=== PATIENT | male | born 1945 | race Caucasian/White ===

== ENCOUNTER 2016-12-15 08:12 | Emergency (ER) | payer OTHER ==
[~2016-12-15] VITALS: Ht 170.2 cm; Wt 98.3 kg
[2016-12-15 08:17] VITALS: TEMP 36.6; Ht 170.2 cm; Wt 98.3 kg
[2016-12-15] MEDS ORDERED: RANITIDINE HCL 50 MG/100 ML D5W IV STA (09:05)
[2016-12-15] MEDS ORDERED: DEXAMETHASONE SOD INJ 10 MG/ML VIAL IV ONE (09:15)
[2016-12-15 09:16] LABS: BASO % 0.2 %; BASO ABS # 0.02 K/uL (0-0.2); COMPLETE YES; EOS % 1.3 %; HEMATOCRIT 46.5 % (42-52); IG% 0.6 %; LYMPH % 7.2 %; LYMPH ABS # 0.78 K/uL (1.2-3.4); MEAN CELL VOLUME 90.3 fL (80-100); MEAN CORPUSCULAR HEMOGLOBIN 33.6 pg (25-34); MEAN CORPUSCULAR HGB CONC 37.2 g/dl (32-36); MEAN PLATELET VOLUME 11.6 fL (7.4-10.4); NEUT % 84.7 %; PLATELET COUNT 187 K/uL (130-400); RED BLOOD COUNT 5.15 M/uL (4.7-6.1); WHITE BLOOD COUNT 10.85 K/uL (4.8-10.8)
[2016-12-15 09:36] LABS: BUN/CREATININE RATIO 17.6 (10-20); CALCIUM 9.1 mg/dl (8.5-10.1); CREATININE 1.1 mg/dl (0.60-1.40); POTASSIUM 4.1 mmol/L (3.5-5.1)
[2016-12-15] MEDS ORDERED: EPP3/2 IM (11:19)
[2016-12-15 11:26] VITALS: BP 144/97; PULSE 93; O2SAT 95
[2016-12-15] MEDS ORDERED: EMPTY 8 DRAM VIAL ONE (11:41)
--- NOTE | 2016-12-15 15:41 | EMERGENCY ROOM VISIT NOTE ---
History Report prepared by [place]: Maureen Betancourt Under the Supervision of: Dr. Rafa Elmore M.D. First contact with patient: 08:28 Chief Complaint: ALLERGIC REACTION Stated Complaint: SWELLING IN HANDS,LIP,HIVES History of Present Illness The patient is a 71 year old male who presents to the Emergency Room with complaints of a persistent allergic reaction that began yesterday. The patient states that yesterday he woke up with a swollen and itchy left hand. He states that he was evaluated at [facility] emergency department and was given 20 mg of Prednisone. The patient states that he took an additional dose of prednisone last evening. He states that he woke this morning to hives on his hips and lip swelling. The patient denies any history of allergies and denies any previous allergic reactions. The patient's states that she gave the patient 25 mg of Benadryl this morning. The patient denies any new lotions, clothing, detergents, soaps or recent bug bites. 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 The patient denies being on any daily medications. Pt denies LOC, headache, fevers, chills, diaphoresis, visual changes, neck pain, chest pain, breathing difficulties, nausea, vomiting, abdominal pain, back pain , melena, hematochezia, urinary symptoms, numbness, weakness, lymphadenopathy, or other complaints. Source of History: patient Onset: yesterday Position: other (global) Quality: other (allergic reaction) Timing: other (persistent) Note: Associated Symptoms left hand swelling and itchiness Review of Systems See HPI for pertinent positives and negatives. A total of ten systems were reviewed and were otherwise negative. Past Medical & Surgical Medical Problems: (1) Skin cancer Family History No pertinent family history stated. Social History Smoking Status: Former Smoker Marital Status: Housing Status: lives with significant other Occupation Status: retired Current/Historical Medications Scheduled PRN Epinephrine (Epipen), 0.3 MG IM UD PRN for ALLERGIC REACTION Allergies Coded Allergies: No Known Allergies (Unverified , 12/15/16) Physical Exam Vital Signs Date Time Temp Pulse Resp B/P (MAP) Pulse Ox O2 Delivery O2 Flow Rate FiO2 12/15/16 11:26 93 18 144/97 95 Room Air 12/15/16 09:30 72 18 137/90 12/15/16 09:08 80 12/15/16 08:17 36.6 90 20 170/99 95 Room Air Physical Exam GENERAL: Awake, alert, well-appearing, in no distress HENT: Normocephalic, atraumatic. Oropharynx unremarkable. EYES: Normal conjunctiva. Sclera non-icteric. NECK: Supple. No nuchal rigidity. FROM. No JVD. RESPIRATORY: Clear to auscultation. CARDIAC: Regular rate, normal rhythm. Extremities warm and well perfused. Pulses equal. ABDOMEN: Soft, non-distended. No tenderness to palpation. No rebound or guarding. No masses. RECTAL: Deferred. MUSCULOSKELETAL: Chest examination reveals no tenderness. The back is symmetrical on inspection without obvious abnormality. There is no CVA tenderness to palpation. No joint edema. LOWER EXTREMITIES: Calves are equal size bilaterally and non-tender. No edema. No discoloration. NEURO: Normal sensorium. No sensory or motor deficits noted. SKIN: Erythema and hives on the back of left hand, hives at the waistline. No jaundice noted. Medical Decision & Procedures Laboratory Results 12/15/16 08:50 Red Blood Count 5.15, Mean Corpuscular Volume 90.3, Mean Corpuscular Hemoglobin 33.6, Mean Corpuscular Hemoglobin Concent 37.2, Mean Platelet Volume 11.6, Neutrophils (%) (Auto) 84.7, Lymphocytes (%) (Auto) 7.2, Monocytes (%) (Auto) 6.0, Eosinophils (%) (Auto) 1.3, Basophils (%) (Auto) 0.2, Neutrophils # (Auto) 9.20, Lymphocytes # (Auto) 0.78, Monocytes # (Auto) 0.65, Eosinophils # (Auto) 0.14, Basophils # (Auto) 0.02 12/15/16 08:50 Test 12/15/16 08:50 White Blood Count 10.85 K/uL (4.8-10.8) Red Blood Count 5.15 M/uL (4.7-6.1) Hemoglobin 17.3 g/dL (14.0-18.0) Hematocrit 46.5 % (42-52) Mean Corpuscular Volume 90.3 fL (80-100) Mean Corpuscular Hemoglobin 33.6 pg (25-34) Mean Corpuscular Hemoglobin Concent 37.2 g/dl (32-36) Platelet Count 187 K/uL (130-400) Mean Platelet Volume 11.6 fL (7.4-10.4) Neutrophils (%) (Auto) 84.7 % Lymphocytes (%) (Auto) 7.2 % Monocytes (%) (Auto) 6.0 % Eosinophils (%) (Auto) 1.3 % Basophils (%) (Auto) 0.2 % Neutrophils # (Auto) 9.20 K/uL (1.4-6.5) Lymphocytes # (Auto) 0.78 K/uL (1.2-3.4) Monocytes # (Auto) 0.65 K/uL (0.11-0.59) Eosinophils # (Auto) 0.14 K/uL (0-0.5) Basophils # (Auto) 0.02 K/uL (0-0.2) RDW Standard Deviation 44.6 fL (36.4-46.3) RDW Coefficient of Variation 13.5 % (11.5-14.5) Immature Granulocyte % (Auto) 0.6 % Immature Granulocyte # (Auto) 0.06 K/uL (0.00-0.02) Anion Gap 4.0 mmol/L (3-11) Est Creatinine Clear Calc Drug Dose 66.8 ml/min Estimated GFR () 76.8 Estimated GFR (Non- 66.2 BUN/Creatinine Ratio 17.6 (10-20) Calcium Level 9.1 mg/dl (8.5-10.1) Laboratory results reviewed by me Medications Administered Medications (Trade) Dose Ordered Sig/Angela Route Start Time Stop Time Status Last Admin Dose Admin Dexamethasone Sodium Phosphate (Decadron Inj) 10 mg NOW ONCE IV 12/15/16 09:15 12/15/16 09:16 DC 12/15/16 09:24 10 MG Ranitidine HCl (zANTac IV) 50 mg NOW STAT IV 12/15/16 09:05 12/15/16 09:06 DC 12/15/16 09:24 50 MG Prednisone (PredniSONE TAB) 60 mg NOW STAT PO 12/15/16 11:36 12/15/16 11:37 DC 12/15/16 11:44 60 MG ED Course 0834: The patient was evaluated in room B4B. A complete history and physical exam was performed by the medical student. 0905: Ordered Zantac IV 50 mg IV. 0910: The patient was evaluated in room B4B. A complete history and physical exam was performed. 0915: Ordered Decadron Inj 10 mg IV. 1010: I reevaluated the patient and his swelling, rash and hives have been alleviated. 1136: Ordered Prednisone 60 mg PO. 1127: I reevaluated the patient and he is completely stable. I discussed the exam findings with him and I discussed the treatment plan. He verbalized complete understanding and agreement. He is ready to go home. Medical Decision Prior records/ancillary studies reviewed. Triage Nursing notes reviewed and agree them. Additional history obtained from the patient's . The patient's history was concerning for possible allergic reaction. Differential diagnosis: Etiologies such as allergic reaction, anaphylaxis, urticaria, Espino-Anibal syndrome, toxic epidermal necrolysis, erythema multiforme, cellulitis, as well as others were entertained. Physical examination: As above. ER treatment provided: Continuous cardiac monitoring Zantac 50 mg IV Decadron 10 mg IV On reassessment the patient felt better. Diagnostic interpretation by me: The labs revealed an unremarkable CBC and chemistry panel. Imaging studies: Deferred It appears the patient had an allergic reaction/urticaria. The exact etiology of his symptoms is not obvious at this time. The above treatment did well to reverse the symptoms. After prolonged monitoring and frequent reassessments the patient did very well and symptoms resolved. By the evaluation outlined above emergent etiologies such as airway compromise, Espino-Anibal syndrome, toxic epidermal necrolysis, erythema multiforme, cellulitis, as well as others were deemed relatively unlikely. The patient and were informed about the findings as listed above. All questions were answered and they were pleased with the treatment. Return instructions were outlined and the patient was discharged in stable condition. Outpatient prescription management: EpiPen prednisone Referral: The patient was referred back to his primary care physician as well as allergy for a recheck of the current condition. Medication Reconcilliation Current Medication List: was personally reviewed by me Blood Pressure Screening Patient's blood pressure: Elevated blood pressure Blood pressure disposition: Referred to PCP Impression Primary Impression: Urticaria Scribe Attestation The scribe's documentation has been prepared under my direction and personally reviewed by me in its entirety. I confirm that the note above accurately reflects all work, treatment, procedures, and medical decision making performed by me. Departure Information Dispostion Home / Self-Care Prescriptions Epinephrine (EPIPEN) 0.3 Mg/0.3 Ml Inj 0.3 MG IM UD Y for ALLERGIC REACTION, #1 EA 1 Refill Prov: Rafa Elmore MD 12/15/16 Referrals No Doctor, Assigned (PCP) Forms HOME CARE DOCUMENTATION FORM, IMPORTANT VISIT INFORMATION Patient Instructions My [facility] Additional Instructions ALLERGIC REACTION INSTRUCTIONS: DO NOT drive, drink alcohol, operate machinery, or perform dangerous activities today. You were given medications in the ER that can affect your ability to safely function or operate a vehicle. Epi-Pen: Use one injection as instructed for severe allergic reactions associated with shortness of breath, difficulty breathing, or throat or tongue swelling. If you use this injection call 911 or proceed immediately to the nearest Emergency Room. Prednisone: 60 mg tomorrow and then 40 mg daily on Thursday and . It is best to take this earlier in the day as some patients note occasional difficulty falling asleep when taken in the late evening. Diphenhydramine(Benadryl) 25mg: use 25 to 50 mg every six hours for swelling, itching, or hives. This medication is sedating and will cause drowsiness. Avoid alcohol, operating machinery or dangerous equipment, working on ladders or roofs, DRIVING, or situations where being under the influence may be dangerous. Zantac 75: Take two pills twice a day along with Benadryl as needed for swelling , itching, or hives. Most people know this for its affect on the stomach, but it also acts similar to, but less potent than Benadryl for allergic reactions. Both the Benadryl and the Zantac are available [id number]. Continue current medications. Return to the emergency department for worsening of your rash, swelling of your face, lips, tongue, or throat, difficulty breathing, vomiting, or as needed. Follow-up with your primary care physician in 2 to 3 days for a recheck of your current condition. Call [facility] internal medicine tomorrow for a follow-up with allergy at [phone].
== END 2016-12-15 11:47 | disposition home or self-care (01) ==
LOC: C.EDB 08:14
DX: L50.0 Allergic urticaria (principal); Z85.828 Personal history of other malignant neoplasm of skin; Z87.891 Personal history of nicotine dependence

== ENCOUNTER 2017-04-20 08:22 | Emergency (ER) | payer OTHER ==
[~2017-04-20] VITALS: Ht 170.2 cm; Wt 100.5 kg
[~2017-04-20 08:22] MED LIST: EPP3/2 IM
[2017-04-20 08:26] VITALS: TEMP 36.7; Ht 170.2 cm; Wt 100.5 kg
[2017-04-20 08:44] VITALS: O2SAT 95
[2017-04-20] MEDS ORDERED: SODIUM CHLORIDE 0.9% 1000ML 1,000 ML IV STA (08:56)
[2017-04-20] MEDS ORDERED: MECLIZINE HCL 25 MG TAB PO STA (08:56)
[2017-04-20 09:07] LABS: BASO % 0.5 %; BASO ABS # 0.03 K/uL (0-0.2); EOS % 8.2 %; EOS ABS # 0.46 K/uL (0-0.5); HEMATOCRIT 47.2 % (42-52); HEMOGLOBIN 17.3 g/dL (14.0-18.0); IG# 0.01 K/uL (0.00-0.02); LYMPH ABS # 1.63 K/uL (1.2-3.4); MEAN CELL VOLUME 90.8 fL (80-100); MEAN CORPUSCULAR HEMOGLOBIN 33.3 pg (25-34); MEAN CORPUSCULAR HGB CONC 36.7 g/dl (32-36); MEAN PLATELET VOLUME 11.8 fL (7.4-10.4); MONO % 9.8 %; MONO ABS # 0.55 K/uL (0.11-0.59); NEUT % 52.3 %; NEUT ABS # 2.95 K/uL (1.4-6.5); PLATELET COUNT 166 K/uL (130-400); RED CELL DISTRIBUTION WIDTH CV 13.3 % (11.5-14.5); RED CELL DISTRIBUTION WIDTH SD 43.9 fL (36.4-46.3); WHITE BLOOD COUNT 5.63 K/uL (4.8-10.8)
[2017-04-20 09:12] LABS: PTT PATIENT 25.4 SECONDS (21.0-31.0)
--- NOTE | 2017-04-20 09:13 | DIAGNOSTIC IMAGING REPORT ---
CHEST ONE VIEW PORTABLE CLINICAL HISTORY: EVALUATE ALTERED MENTAL STATUS/WEAKNESS COMPARISON STUDY: No previous studies for comparison. FINDINGS: Lung volumes are mildly diminished. No pneumothorax or pleural effusion is noted. No consolidation is identified. There is no evidence for pulmonary edema. There is borderline cardiomegaly. IMPRESSION: Diminished lung volumes. No acute cardiopulmonary findings identified. Electronically signed by: Gonzales Bearden M.D. 04/20/2017 9:12 AM Dictated Date/Time: 04/20/2017 9:11 AM
[2017-04-20 09:22] LABS: ALBUMIN 3.9 gm/dl (3.4-5.0); ALT/SGPT 24 U/L (12-78); BLOOD UREA NITROGEN 21 mg/dl (7-18); CALCIUM 9.4 mg/dl (8.5-10.1); CARBON DIOXIDE 26 mmol/L (21-32); CREATININE 1.08 mg/dl (0.60-1.40); GLUCOSE 87 mg/dl (70-99); LIPASE 128 U/L (73-393); POTASSIUM 4.2 mmol/L (3.5-5.1); SODIUM 140 mmol/L (136-145)
[2017-04-20 09:30] LABS: ALKALINE PHOSPHATASE 53 U/L (45-117); AST/SGOT 13 U/L (15-37); CKMB 0.6 ng/ml (0.5-3.6); TOTAL PROTEIN 7.5 gm/dl (6.4-8.2)
--- NOTE | 2017-04-20 10:15 | DIAGNOSTIC IMAGING REPORT ---
CT OF THE HEAD WITHOUT CONTRAST CLINICAL HISTORY: EVALUATE ALTERED MENTAL STATUS/WEAKNESS. COMPARISON STUDY: No previous studies for comparison. CT DOSE: 614.27 mGy.cm TECHNIQUE: Helical axial images of the head were obtained without IV contrast. Automated exposure control was utilized for the study. A dose lowering technique was utilized adhering to the principles of ALARA. FINDINGS: No acute intracranial hemorrhage, midline shift or mass effect is present. Ventricular system is normal. Basilar cisterns are patent. There are no extra axial collections. White matter hypodensity suggests small vessel disease. There are no findings to suggest acute dural sinus thrombosis or acute territorial infarct. There are no significant calvarial abnormalities. Visualized portions of the sinuses and mastoid air cells are clear. IMPRESSION: No acute intracranial findings. Electronically signed by: Gonzales Bearden M.D. 04/20/2017 10:13 AM Dictated Date/Time: 04/20/2017 10:11 AM
[2017-04-20] MEDS ORDERED: MECL1TAB42 PO (10:41)
[2017-04-20 10:50] VITALS: BP 155/95; PULSE 69; O2SAT 94
--- NOTE | 2017-04-20 14:34 | EMERGENCY ROOM VISIT NOTE ---
History First contact with patient: 08:49 Chief Complaint: DIZZY Stated Complaint: DIZZY, LIGHT HEADED, SHAKEY Nursing Triage Summary: pt reports intermittent chest pain with sob has awoken him from sleep several night per spouse. describes chest pain as heaviness. does not require exertion for sob or chest pain. took 2 reg strength asa today. c/o dizziness worse when going from sitting to lying or lying to sitting History of Present Illness The patient is a 71 year old male who presents to the Emergency Room with complaints of mainly dizziness. She states that the main reason for coming in today was dizziness. She states that she is now feeling better. She states that her symptoms started Thursday. They were worse with laying down. The patient did report and nurse's of having some intermittent chest heaviness and shortness of breath at night when sleeping. She did not report the symptoms to me, however. She is currently asymptomatic. She denies any recent illness, fevers, headaches or focal neurologic deficits. Review of Systems As above otherwise negative for 10 systems Past Medical/Surgical History Medical Problems: (1) Skin cancer Social History Smoking Status: Former Smoker Marital Status: Housing Status: lives with significant other Occupation Status: retired Current/Historical Medications Scheduled PRN Meclizine Hcl (Meclizine Hcl), 1 TAB PO TID PRN for Dizziness or Vertigo Physical Exam Vital Signs Date Time Temp Pulse Resp B/P (MAP) Pulse Ox O2 Delivery O2 Flow Rate FiO2 04/20/17 10:50 69 16 155/95 94 04/20/17 09:57 64 18 150/94 96 Room Air 04/20/17 08:45 77 04/20/17 08:44 95 Room Air 04/20/17 08:44 77 154/97 83 163/106 85 172/111 04/20/17 08:26 36.7 80 20 168/103 93 Room Air Physical Exam VITAL SIGNS: were reviewed as above. GENERAL:Non-toxic in appearance. SKIN: Warm dry and pink. HEAD: Normocephalic and atraumatic. OROPHARYNX: Is clear and moist NECK: Supple without lymphadenopathy or meningismus. LUNGS: Are clear. HEART: Regular rate and rhythm. ABDOMEN: Soft and nontender. EXTREMITIES: Warm and well perfused. NEUROLOGICALLY: Awake alert and oriented without focal deficit. Cranial nerves 2-12 are intact. There is no pronator drift. Cerebellar testing is within normal limits. There is no nystagmus. There is no facial droop. Speech is clear. Vision is grossly normal. MUSCULOSKELETAL: Good muscle tone. No evidence of trauma. Strength is symmetric. ALL NURSING NOTES WERE REVIEWED. Medical Decision & Procedures ER Provider Diagnostic Interpretation: CHEST ONE VIEW PORTABLE CLINICAL HISTORY: EVALUATE ALTERED MENTAL STATUS/WEAKNESS COMPARISON STUDY: No previous studies for comparison. FINDINGS: Lung volumes are mildly diminished. No pneumothorax or pleural effusion is noted. No consolidation is identified. There is no evidence for pulmonary edema. There is borderline cardiomegaly. IMPRESSION: Diminished lung volumes. No acute cardiopulmonary findings identified. CT OF THE HEAD WITHOUT CONTRAST CLINICAL HISTORY: EVALUATE ALTERED MENTAL STATUS/WEAKNESS. COMPARISON STUDY: No previous studies for comparison. CT DOSE: 614.27 mGy.cm TECHNIQUE: Helical axial images of the head were obtained without IV contrast. Automated exposure control was utilized for the study. A dose lowering technique was utilized adhering to the principles of ALARA. FINDINGS: No acute intracranial hemorrhage, midline shift or mass effect is present. Ventricular system is normal. Basilar cisterns are patent. There are no extra axial collections. White matter hypodensity suggests small vessel disease. There are no findings to suggest acute dural sinus thrombosis or acute territorial infarct. There are no significant calvarial abnormalities. Visualized portions of the sinuses and mastoid air cells are clear. IMPRESSION: No acute intracranial findings. CT OF THE HEAD WITHOUT CONTRAST CLINICAL HISTORY: EVALUATE ALTERED MENTAL STATUS/WEAKNESS. COMPARISON STUDY: No previous studies for comparison. CT DOSE: 614.27 mGy.cm TECHNIQUE: Helical axial images of the head were obtained without IV contrast. Automated exposure control was utilized for the study. A dose lowering technique was utilized adhering to the principles of ALARA. FINDINGS: No acute intracranial hemorrhage, midline shift or mass effect is present. Ventricular system is normal. Basilar cisterns are patent. There are no extra axial collections. White matter hypodensity suggests small vessel disease. There are no findings to suggest acute dural sinus thrombosis or acute territorial infarct. There are no significant calvarial abnormalities. Visualized portions of the sinuses and mastoid air cells are clear. IMPRESSION: No acute intracranial findings. Laboratory Results 04/20/17 08:40 Red Blood Count 5.20, Mean Corpuscular Volume 90.8, Mean Corpuscular Hemoglobin 33.3, Mean Corpuscular Hemoglobin Concent 36.7, Mean Platelet Volume 11.8, Neutrophils (%) (Auto) 52.3, Lymphocytes (%) (Auto) 29.0, Monocytes (%) (Auto) 9.8, Eosinophils (%) (Auto) 8.2, Basophils (%) (Auto) 0.5, Neutrophils # (Auto) 2.95, Lymphocytes # (Auto) 1.63, Monocytes # (Auto) 0.55, Eosinophils # (Auto) 0.46, Basophils # (Auto) 0.03 04/20/17 08:40 Test 04/20/17 08:40 04/20/17 08:45 04/20/17 09:50 White Blood Count 5.63 K/uL (4.8-10.8) Red Blood Count 5.20 M/uL (4.7-6.1) Hemoglobin 17.3 g/dL (14.0-18.0) Hematocrit 47.2 % (42-52) Mean Corpuscular Volume 90.8 fL (80-100) Mean Corpuscular Hemoglobin 33.3 pg (25-34) Mean Corpuscular Hemoglobin Concent 36.7 g/dl (32-36) Platelet Count 166 K/uL (130-400) Mean Platelet Volume 11.8 fL (7.4-10.4) Neutrophils (%) (Auto) 52.3 % Lymphocytes (%) (Auto) 29.0 % Monocytes (%) (Auto) 9.8 % Eosinophils (%) (Auto) 8.2 % Basophils (%) (Auto) 0.5 % Neutrophils # (Auto) 2.95 K/uL (1.4-6.5) Lymphocytes # (Auto) 1.63 K/uL (1.2-3.4) Monocytes # (Auto) 0.55 K/uL (0.11-0.59) Eosinophils # (Auto) 0.46 K/uL (0-0.5) Basophils # (Auto) 0.03 K/uL (0-0.2) RDW Standard Deviation 43.9 fL (36.4-46.3) RDW Coefficient of Variation 13.3 % (11.5-14.5) Immature Granulocyte % (Auto) 0.2 % Immature Granulocyte # (Auto) 0.01 K/uL (0.00-0.02) Prothrombin Time 10.0 SECONDS (9.0-12.0) Prothromb Time International Ratio 1.0 (0.9-1.1) Activated Partial Thromboplast Time 25.4 SECONDS (21.0-31.0) Partial Thromboplastin Ratio 1.0 Anion Gap 7.0 mmol/L (3-11) Est Creatinine Clear Calc Drug Dose 68.8 ml/min Estimated GFR () 78.5 Estimated GFR (Non- 67.7 BUN/Creatinine Ratio 19.3 (10-20) Calcium Level 9.4 mg/dl (8.5-10.1) Magnesium Level 2.3 mg/dl (1.8-2.4) Total Bilirubin 0.4 mg/dl (0.2-1) Direct Bilirubin 0.1 mg/dl (0-0.2) Aspartate Amino Transf (AST/SGOT) 13 U/L (15-37) Alanine Aminotransferase (ALT/SGPT) 24 U/L (12-78) Alkaline Phosphatase 53 U/L (45-117) Total Creatine Kinase 39 U/L (39-308) Creatine Kinase MB 0.6 ng/ml (0.5-3.6) Creatine Kinase MB Ratio 1.5 (0-3.0) Troponin I < 0.015 ng/ml (0-0.045) Total Protein 7.5 gm/dl (6.4-8.2) Albumin 3.9 gm/dl (3.4-5.0) Lipase 128 U/L (73-393) Thyroid Stimulating Hormone (TSH) 2.490 uIu/ml (0.300-4.500) Bedside D-Dimer 276 ng/mlFEU (0-450) Bedside Troponin I < 0.030 ng/ml (0-0.045) Urine Color YELLOW Urine Appearance CLEAR (CLEAR) Urine pH 7.0 (4.5-7.5) Urine Specific [place] 1.019 (1.000-1.030) Urine Protein NEG (NEG) Urine Glucose (UA) NEG (NEG) Urine Ketones NEG (NEG) Urine Occult Blood NEG (NEG) Urine Nitrite NEG (NEG) Urine Bilirubin NEG (NEG) Urine Urobilinogen NEG (NEG) Urine Leukocyte Esterase NEG (NEG) Urine WBC (Auto) 0 /hpf (0-5) Urine RBC (Auto) 0-4 /hpf (0-4) Urine Hyaline Casts (Auto) 0 /lpf (0-5) Urine Epithelial Cells (Auto) 0-5 /lpf (0-5) Urine Bacteria (Auto) NEG (NEG) Medications Administered Medications (Trade) Dose Ordered Sig/Angela Route Start Time Stop Time Status Last Admin Dose Admin Sodium Chloride 1,000 ml @ 999 mls/hr Q1H1M STAT IV 04/20/17 08:56 04/20/17 09:56 DC 04/20/17 09:19 999 MLS/HR Meclizine HCl (Antivert Tab) 25 mg NOW STAT PO 04/20/17 08:56 04/20/17 08:58 DC 04/20/17 09:19 25 MG ED Course The patient was treated with IV fluids and by mouth meclizine. Medical Decision Differential includes acute coronary syndrome, myocardial infarction, CVA, TIA, anemia, infection, pneumonia, UTI, pyelonephritis, poor nutrition, dehydration, electrolyte disturbance,hypoglycemia. This is a 71-year-old male who presents with the above. Primary complaint of that of dizziness. It seems to be worse with lying down as well as standing. Once the patient is upright and walking or lying down for a little while symptoms resolve. It seems to be related to movement. His initial blood pressure was a little elevated. His neuro exam was normal. CT scan of the brain and a chest x-ray were negative for acute disease. D-dimer and troponin were negative. CBC and complete metabolic panel were normal. Troponin was negative, urine did not show infection. The patient was treated with IV fluids and by mouth meclizine. He was feeling better. He was discharged. Impression Primary Impression: Dizziness Departure Information Dispostion Home / Self-Care Condition GOOD Prescriptions Meclizine Hcl (MECLIZINE HCL) 25 Mg Tab 1 TAB PO TID Y for Dizziness or Vertigo for 10 Days, #30 TAB Prov: Kit Herrera D.O. 04/20/17 Referrals Jaden Beebe M.D. (PCP) Forms HOME CARE DOCUMENTATION FORM, IMPORTANT VISIT INFORMATION Patient Instructions My [facility] Additional Instructions Meclizine as prescribed. Have your blood pressure rechecked by your doctor. Follow-up with your doctor for further care and evaluation in 1-2 days. Return to the emergency department for worsening or new symptoms or any concerns. You have been examined and treated today on an emergency basis only. This is not a substitute for, or an effort to provide, complete comprehensive medical care. It is impossible to recognize and treat all injuries or illnesses in a single emergency department visit. It is therefore important that you follow up closely with your doctor. Call as soon as possible for an appointment.
== END 2017-04-20 10:51 | disposition home or self-care (01) ==
LOC: C.EDB 08:23 → C.EDA 10:51
DX: R42 Dizziness and giddiness (principal); Z85.828 Personal history of other malignant neoplasm of skin; Z87.891 Personal history of nicotine dependence

== ENCOUNTER 2019-09-04 11:17 | Inpatient (IN) ==
[2019-09-04] MEDS ORDERED: cefOXitin 2,000 MG/60 ML BAG IV STA (11:33)
[2019-09-04] MEDS ORDERED: SODIUM CHLORIDE 0.9% 500 ML IV SCH (11:45)
[2019-09-04 11:46] LABS: Basophils # (auto) 0.02 K/uL (0-0.2); Basophils % (auto) 0.3 %; Eosinophils # (auto) 0.22 K/uL (0-0.5); Eosinophils % (auto) 3.3 %; Hematocrit (blood only) 37.8 % (42-52); Hemoglobin 12.6 g/dL (14.0-18.0); Immature Granulocytes # (auto) 0.02 K/uL (0.00-0.02); Immature Granulocytes % (auto) 0.3 %; Lymphocytes # (auto) 1.34 K/uL (1.2-3.4); Lymphocytes % (auto) 19.9 %; Mean Corpuscular Hemoglobin 27.4 pg (25-34); Mean Corpuscular Hgb Conc 33.3 g/dL (32-36); Mean Corpuscular Volume 82.2 fL (80-100); Mean Platelet Volume 11.7 fL (7.4-10.4); Monocytes # (auto) 0.65 K/uL (0.11-0.59); Monocytes % (auto) 9.6 %; Neutrophils % (auto) 66.6 %; Platelet Count 267 K/uL (130-400); RDW Coefficient of Variation 15.4 % (11.5-14.5); RDW Standard Deviation 46.4 fL (36.4-46.3); White Blood Count 6.75 K/uL (4.8-10.8)
[2019-09-04 12:02] LABS: Albumin Level 3.6 gm/dl (3.4-5.0); BUN Creatinine Ratio 16.3 (10-20); Calcium 8.8 mg/dl (8.5-10.1); Creatinine Clr Calc Pharmacy 68.1 ml/min; Est GFR (Non-African American) 70.7; Potassium 3.4 mmol/L (3.5-5.1)
[2019-09-04 12:04] LABS: Albumin Globulin Ratio 0.9 (0.9-2); Bilirubin,Total 0.2 mg/dl (0.2-1); Globulin 4.1 gm/dl (2.5-4.0); Total Protein 7.7 gm/dl (6.4-8.2)
--- NOTE | 2019-09-04 12:48 | Emergency Department Note ---
Impression & Plan Abdominal pain, lower ED Provider Note NAME: FRANK ESCOBAR AGE: 73 SEX: M ARRIVES VIA: Walk-In INFORMANT: [Patient] ED PROVIDER(S): Rafa Elmore MD CHIEF COMPLAINT: Lower abdominal pain PLAN: Disposition: Admitted Condition: [Good] MEDICAL DECISION MAKING: Patient presented with abdominal pain outpatient CT imaging raise concerns for multiple issues but also appendicitis. The patient was given a dose of IV Mefoxin, had blood work obtained, and I did discuss his imaging with radiology. It was felt that repeat CT imaging would be most appropriate to further evaluate the multiple issues going on. This was performed with IV and oral contrast. The patient has a possible lesion in the hepatic flexure causing stricture. This could be a colitis versus a tumor. I did discuss this with the patient. GI evaluation will be necessary. I did discuss this with GI. A bowel prep was recommended. N.p.o. after midnight was recommended. The patient will have a colonoscopy tomorrow to further evaluate the issue. The patient also has an abnormal appearance to his appendix although it appears to be reactive change as opposed to primary appendicitis. I did discuss this with general surgery and they will consult. Further management will be necessary in the hospital. I discussed this with the [facility] internal medicine hospitalist. The patient was evaluated in the ER and admitted. Triage Nursing notes reviewed and agree them. [Prior medical records reviewed] outpatient CT scan raised concerns about a right inguinal hernia with the appendix in the hernia and signs of appendicitis. There was also an abdominal aortic aneurysm present. Vital Signs: reviewed and remarkable for hypertension Differential diagnosis: Appendicitis, testicular torsion, infections, diverticulitis, UTI, obstruction, mesenteric ischemia, aortic pathology, inflammatory bowel disease, renal colic, PUD, pancreatitis, biliary pathology, hernia, volvulus, constipation, as well as other pathologies. ER treatment provided: Normal saline hydration IV Mefoxin Diagnostics interpreted by me: ECG: Rate: 87 Rhythm:Normal sinus Surprise: Left axis deviation QRS: Right bundle branch block ST segements:No elevation or depression. Inferior T wave inversions. When compared to Other:No PACs or PVCs Cardiac Monitoring: [none] Laboratory studies: [See below] unremarkable CBC and chemistry panel. LFTs lipase negative. The patient's urinalysis was unremarkable. Imaging studies: CT imaging of the abdomen and pelvis with IV and oral contrast were performed. 1. Apparent high-grade luminal narrowing of the hepatic flexure is noted with soft tissue thickening suspicious for a mucosal neoplasm measuring up to 2.8 x 1.8 cm. Correlation with GI consultation and endoscopy is recommended. This results in dilation with moderate fecal retention of the terminal ileum, cecum and ascending colon. Enteric contrast progresses to the ileocecal valve excluding small bowel obstruction. 2. Wall thickening throughout the cecum and ascending colon with pericolonic stranding and trace free fluid of the pericolic gutter is likely reactive. A nonspecific colitis could appear similarly. 3. Dilated fluid-filled appendix is also likely secondary to the aforementioned colonic findings. Acute appendicitis is considered less likely. 4. Colonic diverticulosis without acute diverticulitis. 5. Fusiform aneurysmal dilation of the distal infrarenal abdominal aorta, 5.5 x 4.4 cm. Consultation(s): GI, Dr. peguero General surgery, Az Gee PA-C Hospitalist, Dr. Hancock HPI: The patient is a 68 year old male who presents to the Emergency Room with complaints of lower abdominal pain. This started last week and is persistent. The patient also notes the following associated symptoms, diarrhea. The patient has found no relieving factors. Current pain is rated as 6/10. Patient declined analgesia. He had an outpatient CT scan performed on the at [facility]. This revealed a right inguinal hernia with his appendix in the hernia and findings concerning for appendicitis. The patient also had a AAA. Patient was referred to see a vascular surgeon. He was supposed to see them however the appointment was postponed till September. Given the pain and the findings the brought the patient here for further evaluation. Pt denies LOC, headache, fevers, chills, diaphoresis, visual changes, neck pain, chest pain, breathing difficulties, nausea, vomiting, back pain, melena, hematochezia, urinary symptoms, numbness, weakness, lymphadenopathy, rash, or other complaints. ROS: See above HPI for pertinent positives & negatives. A total of [10] systems reviewed and were otherwise negative. PAST MEDICAL HISTORY:[See Below] skin cancer PAST SURGICAL HISTORY:[See Below] FAMILY HISTORY:[See Below] SOCIAL HISTORY:[See Below] HOME MEDICATIONS:[See Below] ALLERGIES:[See Below] VITALS:[See Below] PHYSICAL EXAMINATION: GENERAL: Awake, alert, well-appearing, in no distress HENT: Normocephalic, atraumatic. Oropharynx unremarkable. EYES: Normal conjunctiva. Sclera non-icteric. NECK: Inspection normal. Non-tender. Supple. No nuchal rigidity. FROM. No masses. RESPIRATORY: Clear to auscultation. No wheezes. No rales. Normal respiratory effort. CARDIAC: Normal rate. Normal rhythm. No murmurs. No rubs. Extremities warm and well perfused. Pulses equal. No JVD. GI: Soft, non-distended. Lower abdominal tenderness to palpation. No rebound or guarding. No masses. RECTAL: Deferred. MUSCULOSKELETAL: Atraumatic. Chest examination reveals no tenderness. The back is symmetrical on inspection without obvious abnormality. There is no CVA tenderness to palpation. No joint edema. LOWER EXTREMITIES: Calves are equal size bilaterally and non-tender. No edema. No discoloration. NEURO: Normal sensorium. No sensory or motor deficits noted. SKIN: No rash or jaundice noted. ED COURSE: [Critical Care:] [None] Rafa Elmore MD Past Med/Surg History Medical History (Updated 09/04/19 @ 17:43 by Lisbeth Mathis RN) Ascending aortic aneurysm Skin cancer Social History Preferred Language: Japanese Communication Ability: Effective Filter Washer Required: No Beliefs That Will Affect Care: None Current Living Situation: Spouse Other Information That Helps Us Care for You: No Feels Safe at Home: Yes Safety Concerns: Feels Safe At This Time Smoking Status: Former smoker Hx Alcohol Use: No Hx Substance Use: No Allergies Allergies Allergy/AdvReac Type Severity Reaction Status Date / Time No Known Allergies Allergy Unverified 04/20/17 08:45 Home Meds Home Medications Medication Instructions Recorded Confirmed multivitamin 1 tab PO QAM 09/04/19 09/04/19 pantoprazole 40 mg PO QAM 09/04/19 09/04/19 Results & Data (ED) Vital Signs Vital Signs - 24 hr 09/04/19 11:20 09/04/19 11:54 09/04/19 13:00 Temperature 36.6 C Temperature Source Oral Pulse Rate 94 H Pulse Rate [Right Finger] 73 Pulse Rhythm [Right Finger] Regular Pulse Strength [Right Finger] Normal Respiratory Rate 16 20 Respiratory Effort / Characteristics Non-Labored Spontaneous Respiratory Depth Normal Respiratory Pattern Blood Pressure 164/100 H Blood Pressure [Right Arm] 162/102 H Blood Pressure Mean 121 Blood Pressure Mean [Right Arm] 122 Pulse Oximetry 98 98 Oxygen Delivery Method Room Air Room Air Room Air Sepsis Recent Fever Within 48 Hours No Sepsis New/Unexplained Change in Mental Status No Sepsis Action Taken by Nursing No Action Required 09/04/19 15:22 Temperature Temperature Source Pulse Rate Pulse Rate [Right Finger] 79 Pulse Rhythm [Right Finger] Regular Pulse Strength [Right Finger] Normal Respiratory Rate 18 Respiratory Effort / Characteristics Non-Labored Spontaneous Respiratory Depth Normal Respiratory Pattern Regular Blood Pressure Blood Pressure [Right Arm] 170/98 H Blood Pressure Mean Blood Pressure Mean [Right Arm] 122 Pulse Oximetry 98 Oxygen Delivery Method Room Air Sepsis Recent Fever Within 48 Hours Sepsis New/Unexplained Change in Mental Status Sepsis Action Taken by Nursing Laboratory Data Result diagrams: 09/04/19 11:39 09/04/19 11:39 Lab Results 09/04/19 09/04/19 09/04/19 Range/Units 11:39 11:39 13:12 WBC 6.75 (4.8-10.8) K/uL RBC 4.60 L (4.7-6.1) M/uL Hgb 12.6 L (14.0-18.0) g/dL Hct 37.8 L (42-52) % MCV 82.2 (80-100) fL MCH 27.4 (25-34) pg MCHC 33.3 (32-36) g/dL RDW Std Deviation 46.4 H (36.4-46.3) fL RDW Coeff of Kang 15.4 H (11.5-14.5) % Plt Count 267 (130-400) K/uL MPV 11.7 H (7.4-10.4) fL Immature Gran % (Auto) 0.3 % Neut % (Auto) 66.6 % Lymph % (Auto) 19.9 % [place] % (Auto) 9.6 % Eos % (Auto) 3.3 % Baso % (Auto) 0.3 % Immature Gran # (Auto) 0.02 (0.00-0.02) K/uL Neut # (Auto) 4.50 (1.4-6.5) K/uL Lymph # (Auto) 1.34 (1.2-3.4) K/uL [place] # (Auto) 0.65 H (0.11-0.59) K/uL Eos # (Auto) 0.22 (0-0.5) K/uL Baso # (Auto) 0.02 (0-0.2) K/uL Sodium 141 (136-145) mmol/L Potassium 3.4 L (3.5-5.1) mmol/L Chloride 110 H (98-107) mmol/L Carbon Dioxide 26 (21-32) mmol/L Anion Gap 5.0 (3-11) BUN 17 (7-18) mg/dl Creatinine 1.03 (0.6-1.4) mg/dl Est Cr Clr Drug Dosing 68.1 ml/min Est GFR ( Amer) 82.0 Est GFR (Non-Af Amer) 70.7 BUN/Creatinine Ratio 16.3 (10-20) Glucose 111 H (70-99) mg/dl Calcium 8.8 (8.5-10.1) mg/dl Total Bilirubin 0.2 (0.2-1) mg/dl AST 14 L (15-37) U/L ALT 23 (12-78) U/L Alkaline Phosphatase 70 (45-117) U/L Total Protein 7.7 (6.4-8.2) gm/dl Albumin 3.6 (3.4-5.0) gm/dl Globulin 4.1 H (2.5-4.0) gm/dl Albumin/Globulin Ratio 0.9 (0.9-2) Lipase 134 (73-393) U/L Urine Color Yellow Urine Appearance Clear (Clear) Urine pH 5.5 (4.5-7.5) Ur Specific [place] 1.018 (1.000-1.030) Urine Protein Negative (Negative) Urine Glucose (UA) Negative (Negative) Urine Ketones Negative (Negative) Urine Blood Negative (Negative) Urine Nitrite Negative (Negative) Urine Bilirubin Negative (Negative) Urine Urobilinogen Negative (Negative) Ur Leukocyte Esterase Negative (Negative) Administered Medications Ioversol (Optiray 320 100ml) 94 ml IV ONCE PRN PRN Reason: Interaction Checking Stop: 09/08/19 14:50 Last Admin: 09/04/19 14:51 Dose: 94 ml Documented by: [id number] Discontinued Medications Sodium Chloride (Nss) 500 mls @ 999 mls/hr IV .Q31M ANA Stop: 09/04/19 12:15 Last Infusion: 09/04/19 12:24 Dose: 0 mls/hr Documented by: [id number] Admin: 09/04/19 11:54 Dose: 999 mls/hr Documented by: [id number] Cefoxitin Sodium (Mefoxin) 2,000 mg in 60 mls @ 100 mls/hr IV NOW STA Stop: 09/04/19 12:08 Last Infusion: 09/04/19 12:24 Dose: 0 mls/hr Documented by: [id number] Admin: 09/04/19 11:54 Dose: 100 mls/hr Documented by: [id number] Discharge Plan Visit Data *Final* Discharge Date/Time: 09/04/19 16:56 Chief Complaint: Abnormal Labs/Diagnostic Testing Stated Complaint: RESULTS FROM CT SCAN,ABNORMAL CT SCAN ED Provider: Rafa Elmore Discharge Problem: Abdominal pain, lower Patient Disposition: Admitted As Inpatient Discharge Instructions Interventions: ED Discharge Assessment Last Done: 09/04/19 16:56
[2019-09-04 13:31] LABS: Appearance Urine Clear (Clear); Bilirubin Urine Negative (Negative); Blood Urine Negative (Negative); Color Urine Yellow; Glucose Urine UA Negative (Negative); Ketones Urine Negative (Negative); Leukocyte Esterase Urine Negative (Negative); Nitrite Urine Negative (Negative); Protein Urine Negative (Negative); Specific Gravity Urine 1.018 (1.000-1.030); Urobilinogen Urine Negative (Negative); pH Urine 5.5 (4.5-7.5)
[2019-09-04] MEDS ORDERED: IOVERSOL 100ml IV PRN (14:51)
--- NOTE | 2019-09-04 15:48 | CT Scan Report ---
ABDOMEN AND PELVIS CT WITH IV AND ORAL CONTRAST CT DOSE: 892.90 mGy.cm HISTORY: Acute lower abdominal pain. Follow-up study in a patient with possible acute appendicitis. lower abd pain, AAA and appy on outpt ct TECHNIQUE: Multiaxial CT images of the abdomen and pelvis were performed following the IV administrat ion of 94 cc of Optiray 320 and oral contrast. A dose lowering technique was utilized adhering to e principles of ALARA. COMPARISON STUDY: CT abdomen and pelvis 08/31/2019 FINDINGS: Coronary artery calcifications. Emphysema. Mild bibasilar atelectasis. There is no pneumatosis or pne umoperitoneum. The spleen, pancreas and adrenal glands are unremarkable. Mildly distended gallbladder . Unremarkable appearance of the liver. 6 no renal hypodensity of the left hepatic lobe is too small to characterize however suggestive of a probable cyst, image 17 of series 2. There is no biliary duct al dilation. 5.6 x 6.7 cm cyst of the inferior pole right kidney. There are a few renal sinus cysts noted involvin g the bilateral kidneys. Prostamegaly. Unremarkable urinary bladder. Moderate to extensive mixed plaq ue of the abdominal aorta. Fusiform aneurysmal dilation of the distal infrarenal abdominal aorta rede monstrated without evidence of rupture which measures 5.5 x 4.4 cm for a craniocaudal length of 6.9 c m. Unremarkable appearance of the IVC. No adenopathy. Colonic diverticulosis without acute diverticulitis. There is a focal area of luminal narrowing with soft tissue thickening involving the hepatic flexure on image 133 series 3 measuring 2.8 x 1.8 cm whi ch appears unchanged from the study on 08/31/2019. There is secondary dilation of the cecum and ascend ing colon with mild associated wall thickening and pericolonic stranding/edema. The terminal ileum is contrast and stool filled, dilated measuring up to 3.4 cm. No high-grade small bowel obstruction. En teric contrast progresses through the and ileocecal valve. Trace ascites is noted along the inferior right pericolic gutter. The appendix is fluid-filled and mildly dilated, 8 mm. No evidence of rupture or drainable fluid collection. Bones appear intact. There are no suspicious bone lesions identified. Spondylitic spurring and facet arthrosis is noted within the spine. IMPRESSION: 1. Apparent high-grade luminal narrowing of the hepatic flexure is noted with soft tissue thickening suspicious for a mucosal neoplasm measuring up to 2.8 x 1.8 cm. Correlation with GI consultation and endoscopy is recommended. This results in dilation with moderate fecal retention of the terminal ileu m, cecum and ascending colon. Enteric contrast progresses to the ileocecal valve excluding small dwight l obstruction. 2. Wall thickening throughout the cecum and ascending colon with pericolonic stranding and trace free fluid of the pericolic gutter is likely reactive. A nonspecific colitis could appear similarly. 3. Dilated fluid-filled appendix is also likely secondary to the aforementioned colonic findings. Acu te appendicitis is considered less likely. 4. Colonic diverticulosis without acute diverticulitis. 5. Fusiform aneurysmal dilation of the distal infrarenal abdominal aorta, 5.5 x 4.4 cm. 6. Additional findings as above. Findings were discussed with Dr. Elmore on 09/04/2019 3:35 PM. ACT 112: Negative or not required by law. The above report was generated using voice recognition software. It may contain grammatical, syntax o r spelling errors. Electronically signed by: Seamus Bridges M.D. 09/04/2019 3:47 PM
--- NOTE | 2019-09-04 16:47 | History & Physical Report ---
Date of Service September 04, 2019 Assessment & Plan (1) Colonic mass: No SBO on CT, patient passing flatus. Discussed with Dr Walker. Recommended Bowel prep today for colonoscopy tomorrow. If unable to take PO will given enema in the morning. Consult gastroenterology Consult general surgery - requested COVID-19 testing pre-op screen (2) Abdominal pain, lower: Cramping pain RLQ. Consistent with peristalsis with colonic mass and fecal retention proximal to this. Acetaminophen 1g IV Q8H preferentially Morphine 2mg IV for severe pain if cramping pain not resolving after 20 minutes. (3) Abdominal aortic aneurysm: Recommend discussing with Dr Mason during admission as patient and are particularly concerned about this and is the main reason for them coming here. Suspect will need follow up CT/US with appointment. (4) Anemia: Low normal MCV. Hgb 17.3 in 2018, now 12.6. Fits with probable diagnosis of colon cancer as above. (5) DVT prophylaxis: SCDs Will defer chemical prophylaxis despite likelihood of cancer due to colonoscopy tomorrow with biopsies expected. If no colonoscopy or after colonoscopy start Lovenox Admission and Anticipated Discharge Date Admission Date: 09/04/2019 History of Present Illness Chief Complaint: Abdominal pain Primary Care Provider: Jaden Beebe Frank Kline is a 73 year old male who presents to the ER due to ongoing abdominal pain and concern for abdominal aortic aneurysm. Abdominal pain start on August 24 when he felt constipated. Abdominal pain worse in RLQ, cramping pain. Currently 5/10. This continued with no bowel movements for 2-3 days then his bought him Dulcolax which caused diarrhea and he has had this since after just one dose. His pain mildly improved. No melena or blood noticed. Diarrhea occurring 4-5 times a day. Last bowel movement this morning and is continuing to pass flatus. Associated hands feeling cold but no fever or chills. With these symptoms he saw his PCP (Dr Beebe) on . Sent for CT A/P with IV contrast which was concerning for possible appendicitis and abdominal aortic aneurysm. He was arranged follow up the same day with Dr Veras (vascular surgery) in [place] and after discussion he was advised to go to the ER in [place]. No notes available from this hospitalization but per patient and his they were admitted overnight, started on pantoprazole and discharged the follow day with advice to call vascular surgery for an appointment on Thursday regarding the AAA. His did this and the surgeon was still away and she was told that her probably wouldn't be seen till September anyway. Due to ongoing pain and diarrhea today his brought him to the ER here. In the ER here, repeat CT A/P with IV and oral contrast and with comparison films to his August 30 pictures was concerning for high-grade narrowing of the hepatic flexure with soft tissue thickening suspicious for a mucosal neoplasm measuring up to 2.8x1.8cm. Moderate fecal retention of the terminal ileum, cecum and ascending colon. Reactive wall thickening throughout the cecum and colon likely reactive. Results were discussed with the patient and his and aware of suspected colon cancer diagnosis. No prior colonoscopies. Allergies Allergy/AdvReac Type Severity Reaction Status Date / Time No Known Allergies Allergy Unverified 04/20/17 08:45 Home Medications Home Medications Medication Instructions Recorded Confirmed Type multivitamin 1 tab PO QAM 09/04/19 09/04/19 History pantoprazole 40 mg PO QAM 09/04/19 09/04/19 History Past Med/Surg History Medical History (Updated 09/04/19 @ 21:40 by Ok Hancock MD) Ascending aortic aneurysm Skin cancer Social History (Updated 09/04/19 @ 21:13 by Ok Hancock MD) Preferred Language: Czech Communication Ability: Effective Regulatory Process Manager Required: No Beliefs That Will Affect Care: None Current Living Situation: Spouse Other Information That Helps Us Care for You: No Feels Safe at Home: Yes Safety Concerns: Feels Safe At This Time Smoking Status: Former smoker Age Quit Using Tobacco: 37 ; Hx Alcohol Use: No Hx Substance Use: No Review of Systems Constitutional: + fatigue and + weight loss (over last month); no fever and no chills Eyes: no problem reported Ear, Nose, Mouth, Throat: no problem reported Respiratory: no problem reported Cardiovascular: no problem reported Gastrointestinal: + abdominal pain, + change in stools and + diarrhea/loose stools; no heartburn, no nausea, no vomiting, no constipation, no fecal incontinence, no blood in stools and no melena Genitourinary: no problem reported Musculoskeletal: no problem reported Integumentary: no problem reported Neurologic: no problem reported Psychiatric: no problem reported Endocrine: no problem reported Hematologic / Lymphatic: + unexplained weight loss (over last month) Physical Exam Constitutional: WD/WN, vitals as above Eyes: + anicteric sclerae; normal pupil size ENMT: external ear and nose normal, oropharynx normal Neck: trachea midline, no thyromegaly Respiratory: normal respiratory effort, lungs clear to auscultation Cardiovascular: RRR, no murmur, no edema Gastrointestinal (Abdomen): Inspection/Auscultation: + abdomen distended and normal bowel sounds Percussion/Palpation: + abdomen tender (RLQ) and abdomen soft; no guarding and abdomen not rigid Musculoskeletal: no cyanosis or clubbing, extremities motor strength 5/5 Skin: no rashes, warm and dry Neurologic: moves all extremities and awake; no focal motor deficits and not confused Speech / Cognition: normal speech Motor/Sensory: no tremor and no pronator drift Psychiatric: A+Ox3, euthymic affect Results & Data Results & Data ([facility]) Vital Signs (Past 12 Hours) Vital Signs Temp Pulse Pulse Resp BP BP Pulse Ox 09/04/19 15:22 79 18 170/98 H 98 09/04/19 13:00 73 20 162/102 H 98 09/04/19 11:20 36.6 C 94 H 16 164/100 H 98 Diagnostic Findings ABDOMEN AND PELVIS CT WITH IV AND ORAL CONTRAST IMPRESSION: 1. Apparent high-grade luminal narrowing of the hepatic flexure is noted with soft tissue thickening suspicious for a mucosal neoplasm measuring up to 2.8 x 1.8 cm. Correlation with GI consultation and endoscopy is recommended. This results in dilation with moderate fecal retention of the terminal ileum, cecum and ascending colon. Enteric contrast progresses to the ileocecal valve excluding small bowel obstruction. 2. Wall thickening throughout the cecum and ascending colon with pericolonic stranding and trace free fluid of the pericolic gutter is likely reactive. A nonspecific colitis could appear similarly. 3. Dilated fluid-filled appendix is also likely secondary to the aforementioned colonic findings. Acute appendicitis is considered less likely. 4. Colonic diverticulosis without acute diverticulitis. 5. Fusiform aneurysmal dilation of the distal infrarenal abdominal aorta, 5.5 x 4.4 cm. 6. Additional findings as above. Code Status & VTE Plan Code Status Full VTE Prophylaxis Plan VTE Prophylaxis will be ordered: Yes PG Care Time/CCT Total # of Minutes Spent Total Time Spent with Patient: Total time spent is greater than 50% in coordination of care (as documented) at patient's floor/unit and/or counseling patient: Coding Level of Care Code 13649 Initial Inpt Care Lvl 3 Diagnoses Colonic mass K63.89 Abdominal pain, lower R10.30 Abdominal aortic aneurysm I71.4 Anemia D64.9 DVT prophylaxis Z29.9
--- NOTE | 2019-09-04 17:16 | Surgery Consultation ---
Date of Consultation September 04, 2019 Assessment & Plan (1) Abdominal pain, lower: Possible lesion hepatic flexure with mild anemia, GI to evaluate for possible colonoscopy. Does not appear to be appendicitis. Consider vascular surgery consult at some point during admission for AAA. Dr. Child-patient with partially obstructing mass of the hepatic flexure with a mildly fluid-filled Pennex in the right inguinal hernia Most of his symptoms are also patient diarrhea type situation. He also has a history of a aortic aneurysm GI has been consulted for colonoscopy we will most likely proceed with colectomy at some point this week Patient should undergo COVID testing as soon as possible History of Present Illness History of Present Illness 73 y/o male with constipation, pain beginning about 10 days ago. Took some D ulcolax, has been having loose or watery BMs since then. Seen at [facility] ED on 08/30, CT showed appendix in right inguinal hernia and 5.5 cm AAA. Was set up to see vascular surgery as outpatient, his brought him here today due to concern for AAA. Has not had colonoscopy. Allergies Allergy/AdvReac Type Severity Reaction Status Date / Time No Known Allergies Allergy Unverified 04/20/17 08:45 Home Medications Home Medications Medication Instructions Recorded Confirmed Type multivitamin 1 tab PO QAM 09/04/19 09/04/19 History pantoprazole 40 mg PO QAM 09/04/19 09/04/19 History Patient History Medical History (Updated 09/04/19 @ 17:43 by Lisbeth Mathis RN) Ascending aortic aneurysm Skin cancer Social History Preferred Language: Iraqi Communication Ability: Effective Civil Preparedness Training Officer Required: No Beliefs That Will Affect Care: None Current Living Situation: Spouse Other Information That Helps Us Care for You: No Feels Safe at Home: Yes Safety Concerns: Feels Safe At This Time Smoking Status: Former smoker Hx Alcohol Use: No Hx Substance Use: No Review of Systems Constitutional: + weight loss (10 pounds); no fever, no chills and no anorexia Gastrointestinal: + abdominal pain, + bloating, + change in bowel habits, + constipation and + diarrhea/loose stools; no nausea and no vomiting Physical Exam Constitutional: WD/WN, vitals as above Respiratory: normal respiratory effort, lungs clear to auscultation Cardiovascular: RRR, no murmur, no edema Gastrointestinal (Abdomen): Inspection/Auscultation: + abdomen distended (slightly) Percussion/Palpation: abdomen soft; abdomen nontender Results & Data Vital Signs (Past 12 Hours) Vital Signs Temp Pulse Pulse Resp BP BP Pulse Ox 09/04/19 15:22 79 18 170/98 H 98 09/04/19 13:00 73 20 162/102 H 98 09/04/19 11:20 36.6 C 94 H 16 164/100 H 98 PG Care Time/CCT Total # of Minutes Spent Total Time Spent with Patient: Total time spent is greater than 50% in coordination of care (as documented) at patient's floor/unit and/or counseling patient: Coding Level of Care Code 92832 Initial Inpt Care Lvl 1 Diagnoses Abdominal pain, lower R10.30
[2019-09-04] MEDS ORDERED: ALUMINUM/MAGNESIUM SUSP 30 ML UDC PO PRN (18:06)
[2019-09-04] MEDS ORDERED: MAGNESIUM HYDROXIDE SUSP 30 ML UDC PO PRN (18:06)
[2019-09-04] MEDS ORDERED: ACETAMINOPHEN 325 MG TAB PO PRN (18:06)
[2019-09-04] MEDS: ONDANSETRON INJ 2 MG/ML 2 ML VIAL IV PRN ×2 (19:36→23:57)
[2019-09-04] MEDS ORDERED: ACETAMINOPHEN 1,000 MG/100 ML VIAL IV PRN (19:41)
[2019-09-04] MEDS ORDERED: MoRPHine SULFATE 2 MG/ML CARP IV PRN (19:41)
[2019-09-04] MEDS ORDERED: PROMETHAZINE HCL 12.5 MG in SODIUM CHLORIDE 0.9% 50 ML IV PRN (19:42)
[2019-09-04] MEDS: LACTATED RINGER'S 1,000 ML IV SCH ×2 (19:57→23:49)
[2019-09-04] MEDS ORDERED: LAVAGE SOLUTION 4000ML PO SCH (20:00)
[2019-09-04] MEDS ORDERED: Nursing to Pharmacy Communication SCH (21:30)
[2019-09-04] MEDS ORDERED: LACTATED RINGER'S 1,000 ML IV ONE (22:12)
[2019-09-04] MEDS ORDERED: PIPERACILL/TAZOBAC CONSULT ACTIVE PRN (22:40)
[2019-09-04 22:43] LABS: Partial Thromboplastin Ratio 0.9; Partial Thromboplastin Time 23.9 Seconds (21.0-31.0); Prothrombin Time 10.7 Seconds (9.0-12.0)
[2019-09-04 22:44] LABS: Basophils # (auto) 0.03 K/uL (0-0.2); Basophils % (auto) 0.2 %; Eosinophils # (auto) 0.23 K/uL (0-0.5); Eosinophils % (auto) 1.3 %; Hematocrit (blood only) 41.7 % (42-52); Hemoglobin 13.9 g/dL (14.0-18.0); Immature Granulocytes # (auto) 0.05 K/uL (0.00-0.02); Immature Granulocytes % (auto) 0.3 %; Lymphocytes % (auto) 10.3 %; Mean Corpuscular Hemoglobin 27.7 pg (25-34); Mean Corpuscular Hgb Conc 33.3 g/dL (32-36); Mean Corpuscular Volume 83.2 fL (80-100); Mean Platelet Volume 11.6 fL (7.4-10.4); Monocytes # (auto) 1.43 K/uL (0.11-0.59); Monocytes % (auto) 8.2 %; Neutrophils # (auto) 13.91 K/uL (1.4-6.5); Neutrophils % (auto) 79.7 %; Platelet Count 327 K/uL (130-400); RDW Coefficient of Variation 15.4 % (11.5-14.5); RDW Standard Deviation 47.2 fL (36.4-46.3); Red Blood Count 5.01 M/uL (4.7-6.1); White Blood Count 17.45 K/uL (4.8-10.8)
[2019-09-04 22:51] LABS: Alanine Aminotransferase 21 U/L (12-78); Albumin Level 3.9 gm/dl (3.4-5.0); BUN Creatinine Ratio 14.2 (10-20); Blood Urea Nitrogen 15 mg/dl (7-18); Calcium 9.3 mg/dl (8.5-10.1); Carbon Dioxide 25 mmol/L (21-32); Chloride 108 mmol/L (98-107); Creatinine Clr Calc Pharmacy 66.7 ml/min; Est GFR (African American) 80.1; Est GFR (Non-African American) 69.1; Glucose 182 mg/dl (70-99); Potassium 3.7 mmol/L (3.5-5.1); Sodium 140 mmol/L (136-145)
[2019-09-04 22:53] LABS: Albumin Globulin Ratio 0.9 (0.9-2); Alkaline Phosphatase 80 U/L (45-117); Aspartate Aminotransferase 12 U/L (15-37); Bilirubin,Total 0.6 mg/dl (0.2-1); Globulin 4.2 gm/dl (2.5-4.0); Total Protein 8.1 gm/dl (6.4-8.2)
[2019-09-04] MEDS ORDERED: PIPERACILLIN/TAZOBACTAM 4.5 GM in DEXTROSE 5% 100 ML IV ONE (23:00)
[2019-09-05 00:20] LABS: Troponin I < 0.015 ng/ml (0-0.045)
--- NOTE | 2019-09-05 00:26 | Communication Note ---
Date of Service: September 05, 2019 Called by medical service that after pt. began bowel prep he became hypotensive (SBP 100-105) and tachycardic (HR 110-120). The pt. noted some worsening abdominal pain. Labs showed WBC increased to 17K. CXR showed no evidence of free air. Sinus tachycardia noted on EKG. Pt. seen and examined--he noted some nausea and Right sided abdominal pain. Due to worsening pain, repeat CT scan of abdomen performed. This showed no evidence of free air, perforation, pneumatosis, or abscess. Pt. seen with Dr. Child. Pain felt to be likely due to cecal dilation and obtructing nature of mass near hepatic flexure. Du to symptoms and CT scan findings, plan is to take to OR tomorrow. Tent. procedure is right hemicolectomy. Dr Child- as above- for Rt hemicolectomy
[2019-09-05] MEDS: HYDROmorphone INJ 0.5 MG/0.5 ML SYR IV PRN ×2 (02:18→12:23)
[2019-09-05] MEDS: PIPERACILLIN/TAZOBACTAM 3.375 GM in DEXTROSE 5% 100 ML IV SCH ×3 (04:16→20:15)
[2019-09-05] MEDS ORDERED: LAVAGE SOLUTION 4000ML PO SCH (06:00)
--- NOTE | 2019-09-05 06:20 | Surgery Progress Note ---
Date of Service September 05, 2019 Assessment & Plan (1) Colonic mass: Patient is doing a little better this morning He has received doses of IV antibiotics Plan is to proceed with laparotomy and right hemicolectomy with anastomosis Possible stoma if necessary I have discussed this with the patient and his they wish to proceed Pending on aggressive in the operating room the patient may need ICU care postoperatively for 1 to 2 days Results & Data Vital Signs (Past 12 Hours) Vital Signs Temp Pulse Pulse Resp BP Pulse Ox 09/05/19 04:00 36.6 C 89 18 116/73 94 09/05/19 00:58 36.4 C L 103 H 17 125/81 92 09/04/19 22:55 36.3 C L 100 H 22 127/86 93 09/04/19 22:09 108 H 20 106/70 91 PG Care Time/CCT Total # of Minutes Spent Total Time Spent with Patient: Total time spent is greater than 50% in coordination of care (as documented) at patient's floor/unit and/or counseling patient: Coding Level of Care Code 19902 Inpt Consult Level 2 Diagnoses Colonic mass K63.89
--- NOTE | 2019-09-05 07:13 | CT Scan Report ---
CT SCAN OF THE ABDOMEN AND PELVIS WITHOUT CONTRAST CLINICAL HISTORY: Worsening right lower quadrant abdominal pain COMPARISON STUDY: Earlier in the day TECHNIQUE: CT scan of the abdomen and pelvis was performed from the lung bases to the proximal femurs . Images are reviewed in the axial, sagittal, and coronal planes. IV contrast was not administered fo r this examination. A dose lowering technique was utilized adhering to the principles of ALARA. CT DOSE: 877.60 mGy.cm FINDINGS: Lower chest: There is pulmonary emphysema. There are basilar airspace opacities, likely atelectatic Liver: The unenhanced liver is normal in size, contour, and attenuation. There is no intrahepatic sarah iary ductal dilatation. Gallbladder: Increased density, consistent with vicarious excretion Spleen: Normal in size and attenuation. Pancreas: Unremarkable. Adrenal glands: Unremarkable. Kidneys: There are bilateral renal cysts and parapelvic cysts. There is contrast excretion secondary to the prior contrast bolus. Bowel: There is colonic diverticulosis. The right colon is distended and there is a colonic transitio n zone at the level of the hepatic flexure. The findings are concerning for an obstructing mass. The cecum measures 8.5 cm, and there is mild infiltration of the surrounding mesenteric fat. GI consultat ion with endoscopic follow-up is recommended. The appendix appears normal. There is colonic diverticu losis without evidence of acute diverticulitis. Peritoneum: There is low volume ascites. Vasculature: There is a 5.7 cm infrarenal abdominal aortic aneurysm. Adenopathy: None. Pelvic viscera: There is mild prostatomegaly Skeletal structures: No destructive osseous lesions are seen. IMPRESSION: 1. CT findings concerning for an obstructing colonic mass at the level the hepatic flexure. There is secondary dilatation of the right colon. The cecum measures 8.5 cm there is mild stranding within the surrounding mesenteric fat. There is low volume ascites. GI consultation for endoscopic consideratio n is recommended. 2. Normal appendix 3. Diverticulosis. No evidence of acute diverticulitis. 4. 5.7 cm infrarenal abdominal aortic aneurysm ACT 112: Negative or not required by law. Electronically signed by: Zach Bhatt M.D. 09/05/2019 7:12 AM
[2019-09-05] MEDS ORDERED: PROPOFOL IV EMULSION 10 MG/ML 20 ML VIAL IV ONE (07:23)
[2019-09-05] MEDS ORDERED: ROCURONIUM BROMIDE 10 MG/ML 5 ML VIAL IV ONE (07:23)
[2019-09-05] MEDS ORDERED: LIDOCAINE HCL 2% 2 ML VIAL/AMP(20MG/ML) INFIL ONE (07:23)
[2019-09-05] MEDS ORDERED: NEOSTIGMINE METHYLSULFATE 5 MG/5 ML SYR ONE (07:23)
[2019-09-05] MEDS ORDERED: ONDANSETRON INJ 2 MG/ML 2 ML VIAL ONE (07:23)
[2019-09-05] MEDS ORDERED: DEXAMETHASONE SOD INJ 4 MG/ML VIAL ONE ×3 (07:23→10:45)
[2019-09-05] MEDS ORDERED: SUCCINYLCHOLINE CHLORIDE 20 MG/ML 10 ML VIAL IV ONE (07:23)
[2019-09-05] MEDS ORDERED: GLYCOPYRROLATE 0.2 MG/ML VIAL ONE (07:23)
[2019-09-05] MEDS ORDERED: fentaNYL citrate 100 MCG/2 ML VIAL ONE ×2 (07:23→09:15)
--- NOTE | 2019-09-05 07:33 | XRay Report ---
XR chest 1V portable CLINICAL HISTORY: hypoxia COMPARISON STUDY: Chest radiograph April 20, 2017. FINDINGS: There is no pneumothorax or pleural effusion. Bibasilar opacities favor atelectasis. There is no evidence for pulmonary edema. Mild cardiomegaly is noted. Lung volumes are diminished. This fav ors a hypoventilatory study. IMPRESSION: 1. Low lung volumes with bibasilar opacities that favor atelectasis. 2. Mild cardiomegaly without evidence for pulmonary edema. ACT 112: Negative or not required by law. Electronically signed by: Gonzales Bearden M.D. 09/05/2019 7:32 AM
[2019-09-05] MEDS ORDERED: SOD PHOSPHATE/SOD BIPHOSPHATE ENEMA 132 ML BTL PR PRN (08:00)
--- NOTE | 2019-09-05 08:06 | Anesthesiology Consultation ---
Date of Service September 05, 2019 Assessment & Plan ASA ASA3 Proposed Anesthesia Anesthesia Type: General Risk / Benefits Reviewed With: PT / POA / Parent / Guardian, Accepts Plan and Informed Consent Obtained History Surgery Operation Date: 09/05/19 07:55 Proposed Procedures p Right Hemicolectomy - Codey Child MD, FACS Height/Weight Height: 5 ft 7 in Weight: 95 kg Allergies Allergy/AdvReac Type Severity Reaction Status Date / Time No Known Allergies Allergy Unverified 04/20/17 08:45 Medications Home Medications Medication Instructions Recorded Confirmed Last Taken multivitamin 1 tab PO QAM 09/04/19 09/04/19 09/03/19 pantoprazole 40 mg PO QAM 09/04/19 09/04/19 09/04/19 Active Medications Generic Name Dose Route Start Last Admin Trade Name Freq PRN Reason Stop Dose Admin Hydromorphone HCl 0.5 mg 09/04/19 23:55 09/05/19 02:18 Dilaudid IV 09/18/19 23:54 0.5 mg Q3HWA PRN Administration Pain Lactated Ringer's 1,000 mls @ 125 mls/hr 09/04/19 19:45 09/04/19 23:49 Lr IV 10/04/19 19:44 125 mls/hr .Q8H ANA Administration Promethazine HCl 12.5 mg/ 50.5 mls @ 202 mls/hr 09/04/19 19:42 09/05/19 04:04 Sodium Chloride IV 10/04/19 19:41 Infused Q6H PRN Infusion Nausea And Vomiting Piperacillin Sod/Tazobactam 115 mls @ 30 mls/hr 09/05/19 04:00 09/05/19 04:16 Sod 3.375 gm/ Dextrose IV 09/15/19 03:59 30 mls/hr Q8H ANA Administration Protocol Ondansetron HCl 4 mg 09/04/19 18:06 09/04/19 23:57 Zofran IV 10/04/19 18:05 4 mg Q6H PRN Administration Nausea NPO Date Last Intake of Fluids: 09/04/19 Time Last Intake of Fluids: 18:00 Last Intake of Fluids Comment: PT HAD AT HOME Date Last Intake of Solids: 09/04/19 Time Last Intake of Solids: 18:00 Past Medical History Medical History Ascending aortic aneurysm Skin cancer Exercise / Class Metabolic Activity II 4-5 Yardwork/Stairs/Walk up hill Past Anesthesia History No Hx of Anesthesia Complications and No Family Hx of Anesthesia Complications History of PONV No Hx of PONV and No Hx of Motion Sickness Social History Smoking Status: Former smoker Hx Alcohol Use: No Hx Substance Use: No Review of Systems denies fever/cough/ colds/ chest pain/ SOB/ EDMUNDO Constitutional: no fever and no chills Respiratory: no cough and no dyspnea denies EDMUNDO Cardiovascular: no chest pain and no dyspnea on exertion Physical Exam Vital Signs Last Vital Signs Temp 36.9 C 09/05/19 07:47 Pulse 88 09/05/19 07:57 Resp 18 09/05/19 07:47 BP 130/76 09/05/19 07:47 Pulse Ox 97 09/05/19 07:47 ENMT Mouth: + edentulous; no TMJ abnormality and no dentition abnormality Thyromental Distance: > or= 3.5 Finger Breadths Mallampati Class: II Neck neck extension not limited Respiratory normal respiratory effort; no respiratory distress Auscultation: lungs clear to auscultation bilaterally Cardiovascular Rate/Rhythm: regular rate and regular rhythm Neurologic moves all extremities Psychiatric Orientation: alert and oriented x 3 Testing Laboratory Results 09/04/19 22:16 09/04/19 22:16 PT 10.7 Seconds (9.0-12.0) 09/04/19 22:18 INR 1.0 (0.9-1.1) 09/04/19 22:18 APTT 23.9 Seconds (21.0-31.0) 09/04/19 22:18 Urine Color Yellow 09/04/19 13:12 Urine Appearance Clear (Clear) 09/04/19 13:12 Urine pH 5.5 (4.5-7.5) 09/04/19 13:12 Ur Specific Manly 1.018 (1.000-1.030) 09/04/19 13:12 Urine Protein Negative (Negative) 09/04/19 13:12 Urine Glucose (UA) Negative (Negative) 09/04/19 13:12 Urine Ketones Negative (Negative) 09/04/19 13:12 Urine Nitrite Negative (Negative) 09/04/19 13:12 Ur Leukocyte Esterase Negative (Negative) 09/04/19 13:12 Blood Type A Positive 09/04/19 22:18 Antibody Screen NEGATIVE 09/04/19 22:18
[2019-09-05] MEDS ORDERED: ONDANSETRON INJ 2 MG/ML 2 ML VIAL IV PRN (08:07)
[2019-09-05] MEDS ORDERED: ATROPINE SULFATE 0.1 MG/ML 10ML SYR IV PRN (08:07)
[2019-09-05] MEDS ORDERED: HYDROmorphone INJ 2 MG/ML SYR/VIAL IV PRN (08:07)
[2019-09-05] MEDS ORDERED: fentaNYL citrate 100 MCG/2 ML VIAL IV PRN (08:07)
[2019-09-05] MEDS ORDERED: ePHEDrine sulfate 50 MG/ML AMP IV PRN (08:07)
--- NOTE | 2019-09-05 08:33 | Gastrointestinal Consultation ---
Date of Consultation September 05, 2019 Assessment & Plan (1) Colonic mass: 73 year old male with abnormal CTAP concerning for high-grade narrowing of the hepatic flexure with soft tissue thickening suspicious for a mucosal neoplasm who was taken to the OR as he became hypotensive/tachycardiac with bowel prep that was ordered over the weekend. GI consultation not complete as he was out of the room in the OR. (2) Abdominal pain, lower: History of Present Illness Reason for Consultation: concern for colon mass Requesting Physician: Mateusz Attending Physician: Robert Flores MD History of Present Illness 73 year old male who presented to the ED w/ abdominal pain, admitted as CTAP concerning for high-grade narrowing of the hepatic flexure with soft tissue thickening suspicious for a mucosal neoplasm - He was evaluated by surgery team and GI consultation was placed. Last evening he was noted to be hypotensive (SBP 100-105) and tachycardic (HR 110-120) w/ worsening abdominal pain during the prep. He was re-evaluated by general surgery and taken to the OR this AM. Pt was not seen or evaluated by GI as he was out of room in the OR. Allergies Allergy/AdvReac Type Severity Reaction Status Date / Time No Known Allergies Allergy Unverified 04/20/17 08:45 Home Medications Home Medications Medication Instructions Recorded Confirmed Type multivitamin 1 tab PO QAM 09/04/19 09/04/19 History pantoprazole 40 mg PO QAM 09/04/19 09/04/19 History Patient History Medical History Ascending aortic aneurysm Skin cancer Social History (Updated 09/04/19 @ 21:13 by Ok Hancock MD) Preferred Language: Danish Communication Ability: Effective Chuck Splitter Required: No Beliefs That Will Affect Care: None Current Living Situation: Spouse Other Information That Helps Us Care for You: No Feels Safe at Home: Yes Safety Concerns: Feels Safe At This Time Smoking Status: Former smoker Age Quit Using Tobacco: 37 ; Hx Alcohol Use: No Hx Substance Use: No Results & Data ([facility]) Vital Signs (Past 12 Hours) Vital Signs Temp Pulse Pulse Pulse Resp BP Pulse Ox 09/05/19 07:57 88 09/05/19 07:47 36.9 C 89 18 130/76 97 09/05/19 07:45 36.9 C 89 18 130/76 97 09/05/19 04:00 36.6 C 89 18 116/73 94 09/05/19 00:58 36.4 C L 103 H 17 125/81 92 09/04/19 22:55 36.3 C L 100 H 22 127/86 93 09/04/19 22:09 108 H 20 106/70 91
--- NOTE | 2019-09-05 08:39 | Hospitalist Progress Note ---
Date of Service September 05, 2019 Assessment & Plan (1) Colonic mass: PT had 09/05/19 Right Hemicolectomy Surgeon: Codey Child (2) Abdominal pain, lower: Cramping pain RLQ. Consistent with peristalsis with colonic mass and fecal retention proximal to this, now s/p resection and reanastamosis Acetaminophen 1g IV Q8H preferentially Morphine 2mg IV for severe pain if cramping pain not resolving after 20 minutes. (3) Abdominal aortic aneurysm: Recommend discussing with Dr Mason during admission as patient and are particularly concerned about this and is the main reason for them coming here. Suspect will need follow up CT/US with appointment. CT abdomen pelvis IMPRESSION: 1. Apparent high-grade luminal narrowing of the hepatic flexure is noted with soft tissue thickening suspicious for a mucosal neoplasm measuring up to 2.8 x 1.8 cm. Correlation with GI consultation and endoscopy is recommended. This results in dilation with moderate fecal retention of the terminal ileum, cecum and ascending colon. Enteric contrast progresses to the ileocecal valve excluding small bowel obstruction. 2. Wall thickening throughout the cecum and ascending colon with pericolonic stranding and trace free fluid of the pericolic gutter is likely reactive. A nonspecific colitis could appear similarly. 3. Dilated fluid-filled appendix is also likely secondary to the aforementioned colonic findings. Acute appendicitis is considered less likely. 4. Colonic diverticulosis without acute diverticulitis. 5. Fusiform aneurysmal dilation of the distal infrarenal abdominal aorta, 5.5 x 4.4 cm. (4) Anemia: Low normal MCV. Hgb 17.3 in 2018, now 12.6. Fits with probable diagnosis of colon cancer as above. (5) DVT prophylaxis: start Lovenox 24 hours post op as long as good hemostasis and not significant anemia Admission and Anticipated Discharge Date Admission Date: September 04, 2019 Subjective pt was seen post operatively after colonic mass resection, he is groggy but has some abdominal pain at surgical site Review of Systems Review of Systems: Mild distress and fatigue but seem post operatively no headache, blurry or double vision no speech or swallowing issues no chest pain, pressure or palpitations no shortness of breath, cough or wheezes right sided abdominal pain, mild nausea no dysuria, hematuria or frequency no focal joint pain or swelling no back pain, CVA tenderness or radicular pain no bruising, bleeding or rashes no focal signs of weakness or numbness or altered sensation no complaints or anxiety or depression. Physical Exam Physical Exam: The patient appeared well nourished and normally developed. Vital signs as documented. Head exam is normocephalic atraumatic no scleral icterus Neck is without JVD, thyromegaly, or carotid bruits. Lungs are clear to auscultation, no focal loss of breath sounds Cardiac exam, Rhythm is regular.. No murmurs, rubs or gallops. Abdominal exam reveals hypoactive bowel sounds, mild tenderness and dressing in place Extremities are nonedematous and both pedal pulses are normal. Neurologic exam is alert and oriented, no focal loss of strength or sensation Skin is without bruises or rashes Psychologically is without concerns for anxiety or depression Results & Data Results & Data ([facility]) Vital Signs (Past 12 Hours) Vital Signs Temp Pulse Pulse Pulse Resp BP Pulse Ox 09/05/19 07:57 88 09/05/19 07:47 98.4 F 89 18 130/76 97 09/05/19 07:45 98.4 F 89 18 130/76 97 09/05/19 04:00 97.9 F 89 18 116/73 94 09/05/19 00:58 97.5 F L 103 H 17 125/81 92 09/04/19 22:55 97.3 F L 100 H 22 127/86 93 09/04/19 22:09 108 H 20 106/70 91 PG Care Time/CCT Total # of Minutes Spent Total Time Spent with Patient: Total time spent is greater than 50% in coordina tion of care (as documented) at patient's floor/unit and/or counseling patient: Coding Level of Care Code 84205 Subseq Hosp Care Lvl 3 Diagnoses Colonic mass K63.89 Abdominal pain, lower R10.30 Abdominal aortic aneurysm I71.4 Anemia D64.9 DVT prophylaxis Z29.9
[2019-09-05] MEDS ORDERED: PHENYLEPHRINE 100MCG/ML 5ML SYR ONE (08:49)
[2019-09-05] MEDS ORDERED: ePHEDrine sulfate 50 MG/ML SYR ONE (08:49)
[2019-09-05] MEDS ORDERED: MULTIVITAMIN TAB PO SCH (09:00)
[2019-09-05] MEDS ORDERED: PANTOprazole 40 MG TAB PO SCH (09:00)
[2019-09-05] MEDS ORDERED: HYDROmorphone INJ 2 MG/ML SYR/VIAL ONE (09:16)
[2019-09-05] MEDS ORDERED: ACETAMINOPHEN 1,000 MG/100 ML VIAL IV ONE (10:48)
--- NOTE | 2019-09-05 10:48 | Post Operative Brief Note ---
PG Immediate Post Op with CF Date of Surgery September 05, 2019 Pre & Post Diagnosis Operation Date: 09/05/19 08:30 Pre-Op Diagnosis: , COLONIC MASS Post-Op Diagnosis: COLONIC MASS, colonic obstruction Operation Date: 09/05/19 16:30 <No data on this case meets the specified criteria> I identified the patient and participated in the time-out.: Yes Procedure Operation Date: 09/05/19 08:30 Actual Procedures p Right Hemicolectomy(Right) - Codey Child MD, FACS Operation Date: 09/05/19 16:30 <No data on this case meets the specified criteria> Surgeon Codey Child MD, FACS Document Controller Kendy Gee Estimated Blood Loss 30 Findings Consistent with Post-Op Diagnosis Specimens Specimen Description: Permanent Specimen A.) extended right colon Drains Decompression Tube (nasograstic tube), Wise Catheter, Renny-Alcala Drain (15fr alphonse) and Corey Drain (1/4")
--- NOTE | 2019-09-05 11:49 | Operative Report (OR) ---
DATE OF OPERATION: 09/05/2019 NAME OF OPERATION: Laparotomy with extended right hemicolectomy and appendectomy. PREOPERATIVE DIAGNOSIS: Colon tumor with obstruction. POSTOPERATIVE DIAGNOSIS: Same. STAFF SURGEON: Codey Child MD. WORKERS' COMPENSATION COMMISSIONER: Frank Gee PA-C. ANESTHESIA: General. DESCRIPTION OF PROCEDURE: The patient was brought in the operating room and placed on the operating table in supine position. His abdomen was prepped and draped in the usual fashion. Pneumatic stockings and orogastric tube were placed. Wise catheter was placed. A transverse incision was made above the umbilicus from the midline laterally to the right, carrying dissection down into the abdomen. We encountered significant serous ascites. There was no evidence of perforation or infection. The colon was severely dilated involving the right colon and cecum. This was from a proximal transverse colon tumor. The patient had severe adhesions to the gallbladder and surrounding tissue. The right colon was mobilized along the right colic gutter mobilizing also the ileum. The distal ileum was transected using a SANDRA 80 stapler continuing to mobilize the hepatic flexure with some difficulty secondary to adhesions. We were able to mobilize the tumor and mid transverse colon and then transected the proximal to mid transverse colon using the SANDRA stapler. The mesocolon was then transected using clamps with ligation using 2-0 silk suture, 0 chromic suture and the LigaSure. The specimen was sent for routine pathology. It was very large. At this point, the ends of the ileum and colon were oversewn using 3-0 silk suture and then a [id number] anastomosis was performed using the SANDRA stapler with the enteric defect closed using a 2-layer full thickness 2-0 chromic and a seromuscular interrupted 3-0 silk layer. Mesenteric defect closed using 0 chromic. Site was irrigated with antibiotic solution. A 15 round drain placed into the right colic gutter. The omentum brought down over the anastomosis. The abdomen then closed, reapproximating posterior fascia and peritoneum using #1 chromic suture, anterior fascia using both running and interrupted #1 PDS suture. Quarter inch Corey drain placed into the subcutaneous space, secured to the skin using 4-0 nylon suture. Skin reapproximated using terrance. It was somewhat difficult placing his NG tube but the anesthesiologists were able to do this. The patient was transferred to recovery room in stable condition. My chemist assistant helped with prepping, draping, removal of the colon and closure of the wounds. I attest to the content of the Intraoperative Record and any orders documented therein. Any exception s are noted below.
[2019-09-05] MEDS: LACTATED RINGER'S 1,000 ML IV SCH (12:13)
--- NOTE | 2019-09-05 12:34 | Electrocardiogram Report ---
Test Reason : Blood Pressure : / mmHG Vent. Rate : 112 BPM Atrial Rate : 112 BPM P-R Int : 162 ms QRS Dur : 148 ms QT Int : 358 ms P-R-T Axes : 035 -60 013 degrees QTc Int : 488 ms Sinus tachycardia with occasional PACs Right bundle branch block Left anterior fascicular block Bifascicular block Possible Lateral infarct , age undetermined Abnormal ECG When compared with ECG of 04-SEP-2019 11:42, (unconfirmed) Borderline criteria for Lateral infarct are now Present Confirmed by Glenn Cuellar ([id number]) on 09/05/2019 12:33:47 PM Referred By: REFERRED SELF Confirmed By:Reza Cuellar
--- NOTE | 2019-09-05 12:37 | Anesthesiology Progress Note ---
Date of Service September 05, 2019 Anesthesia Post Procedure Vital Signs Vital Signs: Temp Pulse Pulse Pulse Resp BP Pulse Ox 09/05/19 12:31 36.5 C 94 H 20 136/76 91 09/05/19 12:15 36.8 C 89 90 18 146/83 H 91 09/05/19 12:00 36.5 C 94 H 18 171/68 H 90 09/05/19 11:45 36.5 C 92 H 18 159/91 H 92 09/05/19 11:30 36.4 C L 94 H 16 138/84 92 09/05/19 11:20 92 H 18 169/89 H 94 09/05/19 11:10 89 18 165/80 H 95 09/05/19 11:00 36.0 C L 94 H 18 150/88 H 94 09/05/19 07:57 88 09/05/19 07:47 36.9 C 89 18 130/76 97 09/05/19 07:45 36.9 C 89 18 130/76 97 09/05/19 04:00 36.6 C 89 18 116/73 94 09/05/19 00:58 36.4 C L 103 H 17 125/81 92 09/04/19 22:55 36.3 C L 100 H 22 127/86 93 09/04/19 22:09 108 H 20 106/70 91 09/04/19 17:20 36.3 C L 81 16 154/100 H 97 09/04/19 15:22 79 18 170/98 H 98 09/04/19 13:00 73 20 162/102 H 98 Pain Intensity Abdomen: Pain Intensity: 4 Transfer of Care Handoff Completed per policy Notes Mental Status: alert / awake / arousable and participated in evaluation Patient Amnestic to Procedure: Yes Nausea / Vomiting: adequately controlled Pain: adequately controlled Airway Patency, RR, SpO2: stable & adequate BP & HR: stable & adequate Hydration State: stable & adequate Anesthetic Complications: no major complications apparent and Pt Satisfied with anesthetic care
--- NOTE | 2019-09-05 12:39 | Electrocardiogram Report ---
Test Reason : Blood Pressure : / mmHG Vent. Rate : 087 BPM Atrial Rate : 087 BPM P-R Int : 180 ms QRS Dur : 152 ms QT Int : 416 ms P-R-T Axes : 057 -44 -03 degrees QTc Int : 500 ms Normal sinus rhythm Left axis deviation Right bundle branch block Abnormal ECG When compared with ECG of 20-APR-2017 08:32, Inverted T waves have replaced nonspecific T wave abnormality in Inferior leads Confirmed by Glenn Cuellar ([id number]) on 09/05/2019 12:39:11 PM Referred By: REFERRED SELF Confirmed By:Reza Cuellar
[2019-09-05 12:48] LABS: Basophils # (auto) 0.01 K/uL (0-0.2); Basophils % (auto) 0.1 %; Hematocrit (blood only) 38.1 % (42-52); Hemoglobin 12.5 g/dL (14.0-18.0); Lymphocytes # (auto) 0.36 K/uL (1.2-3.4); Lymphocytes % (auto) 4.8 %; Mean Corpuscular Hemoglobin 27.6 pg (25-34); Mean Corpuscular Hgb Conc 32.8 g/dL (32-36); Mean Corpuscular Volume 84.1 fL (80-100); Monocytes # (auto) 0.37 K/uL (0.11-0.59); Monocytes % (auto) 4.9 %; Neutrophils # (auto) 6.75 K/uL (1.4-6.5); Neutrophils % (auto) 90.2 %; Platelet Count 264 K/uL (130-400); RDW Coefficient of Variation 15.6 % (11.5-14.5); RDW Standard Deviation 48.2 fL (36.4-46.3); Red Blood Count 4.53 M/uL (4.7-6.1); White Blood Count 7.49 K/uL (4.8-10.8)
[2019-09-05 12:57] LABS: Est GFR (African American) 72.5; Est GFR (Non-African American) 62.6; Potassium 3.9 mmol/L (3.5-5.1)
[2019-09-05 12:58] LABS: BUN Creatinine Ratio 16.6 (10-20); Calcium 8.5 mg/dl (8.5-10.1); Creatinine Clr Calc Pharmacy 61.5 ml/min; Magnesium 1.9 mg/dl (1.8-2.4)
[2019-09-05 13:02] LABS: Albumin Globulin Ratio 0.9 (0.9-2); Bilirubin,Total 0.6 mg/dl (0.2-1); Globulin 3.5 gm/dl (2.5-4.0); Phosphorus 3.2 mg/dl (2.5-4.9); Total Protein 6.5 gm/dl (6.4-8.2)
[2019-09-05] MEDS: D5NSS + 20MEQ KCL 20 MEQ/1,000 ML BAG IV SCH ×2 (13:06→21:06)
[2019-09-05] MEDS: HYDROmorphone INJ 1 MG/ML SYRINGE IV PRN ×3 (13:06→20:18)
[2019-09-06] MEDS: HYDROmorphone INJ 1 MG/ML SYRINGE IV PRN ×4 (00:08→13:40)
[2019-09-06] MEDS: PIPERACILLIN/TAZOBACTAM 3.375 GM in DEXTROSE 5% 100 ML IV SCH ×3 (04:45→20:46)
[2019-09-06] MEDS: D5NSS + 20MEQ KCL 20 MEQ/1,000 ML BAG IV SCH ×3 (05:12→21:06)
--- NOTE | 2019-09-06 07:50 | Surgery Progress Note ---
Date of Service September 06, 2019 Assessment & Plan (1) H/O colectomy: Vital signs are stable Significant NG output which is expected Abdomen distended but wound is stable We will DC his Wise Continue NG tube and IV fluids with antibiotics Patient can go to the regular nursing floor from the surgical standpoint Results & Data Vital Signs (Past 12 Hours) Vital Signs Temp Pulse Resp BP Pulse Ox 09/06/19 03:13 36.5 C 90 19 129/77 93 09/05/19 23:16 37.2 C 90 19 133/75 95 PG Care Time/CCT Total # of Minutes Spent Total Time Spent with Patient: Total time spent is greater than 50% in coordination of care (as documented) at patient's floor/unit and/or counseling patient: Coding Level of Care Code None Diagnoses H/O colectomy Z90.49
[2019-09-06 07:54] LABS: Basophils # (auto) 0.01 K/uL (0-0.2); Basophils % (auto) 0.2 %; Hematocrit (blood only) 33.7 % (42-52); Lymphocytes # (auto) 0.54 K/uL (1.2-3.4); Lymphocytes % (auto) 8.2 %; Mean Corpuscular Hemoglobin 27.4 pg (25-34); Mean Corpuscular Hgb Conc 32.6 g/dL (32-36); Mean Platelet Volume 11.5 fL (7.4-10.4); Monocytes # (auto) 0.89 K/uL (0.11-0.59); Monocytes % (auto) 13.6 %; Neutrophils # (auto) 5.11 K/uL (1.4-6.5); Platelet Count 207 K/uL (130-400); RDW Coefficient of Variation 15.7 % (11.5-14.5); RDW Standard Deviation 48.4 fL (36.4-46.3); Red Blood Count 4.01 M/uL (4.7-6.1); White Blood Count 6.55 K/uL (4.8-10.8)
--- NOTE | 2019-09-06 08:15 | Hospitalist Progress Note ---
Date of Service September 06, 2019 Assessment & Plan (1) Colonic mass: PT had 09/05/19 Right Hemicolectomy Surgeon: Codey Child Pt has had a persistent post operative ileus and persistent NG drainage, did have some issues with respiratory distress and was volume overloaded, did have lasix in the overnight hours. By the chart he is a few liters ahead, and likely with poor nutrition will start PPN but may need some TPN if his ileus is of long duration pathology is not returned yet (2) Abdominal pain, lower: now s/p resection and reanastamosis pain is post operative Acetaminophen 1g IV Q8H preferentially Morphine 2mg IV for severe pain if cramping pain not resolving after 20 minutes. (3) Abdominal aortic aneurysm: Recommend discussing with Dr Mason during admission as patient and are particularly concerned about this and is the main reason for them coming here. Suspect will need follow up CT/US with appointment. CT abdomen pelvis IMPRESSION: 1. Apparent high-grade luminal narrowing of the hepatic flexure is noted with soft tissue thickening suspicious for a mucosal neoplasm measuring up to 2.8 x 1.8 cm. Correlation with GI consultation and endoscopy is recommended. This results in dilation with moderate fecal retention of the terminal ileum, cecum and ascending colon. Enteric contrast progresses to the ileocecal valve excluding small bowel obstruction. 2. Wall thickening throughout the cecum and ascending colon with pericolonic stranding and trace free fluid of the pericolic gutter is likely reactive. A nonspecific colitis could appear similarly. 3. Dilated fluid-filled appendix is also likely secondary to the aforementioned colonic findings. Acute appendicitis is considered less likely. 4. Colonic diverticulosis without acute diverticulitis. 5. Fusiform aneurysmal dilation of the distal infrarenal abdominal aorta, 5.5 x 4.4 cm. (4) Anemia: Low normal MCV. Hgb 17.3 in 2018, now 12.6. Fits with probable diagnosis of colon cancer as above. (5) DVT prophylaxis: start Lovenox 24 hours post op as long as good hemostasis and not significant anemia Admission and Anticipated Discharge Date Admission Date: September 04, 2019 Subjective this pt is disappointed this am, bothered by his NGT and also his bout of shortness of breath last PM. He now also adds to the issues stuffy nose on the opposite side of the NGT, his mood is more poor today. Review of Systems Review of Systems: Mild distress and fatigue but seem post operatively no headache, blurry or double vision nasal discomfort and congestion no speech or swallowing issues no chest pain, pressure or palpitations no shortness of breath, cough or wheezes right sided abdominal pain, mild nausea no dysuria, hematuria or frequency no focal joint pain or swelling no back pain, CVA tenderness or radicular pain no bruising, bleeding or rashes no focal signs of weakness or numbness or altered sensation no complaints or anxiety or depression. Physical Exam Physical Exam: The patient appeared well nourished and normally developed. Vital signs as documented. nasal congestion Head exam is normocephalic atraumatic no scleral icterus Neck is without JVD, thyromegaly, or carotid bruits. Lungs are diminished at the bases, bilaterally Cardiac exam, Rhythm is regular.. No murmurs, rubs or gallops. Abdominal exam reveals hypoactive bowel sounds, mild tenderness and dressing in place Extremities are nonedematous and both pedal pulses are normal. Neurologic exam is alert and oriented, no focal loss of strength or sensation Skin is without bruises or rashes Psychologically is without concerns for anxiety or depression Results & Data Results & Data ([facility]) Vital Signs (Past 12 Hours) Vital Signs Temp Pulse Resp BP Pulse Ox 09/06/19 03:13 97.7 F 90 19 129/77 93 09/05/19 23:16 99.0 F 90 19 133/75 95 PG Care Time/CCT Total # of Minutes Spent Total Time Spent with Patient: Total time spent is greater than 50% in coordination of care (as documented) at patient's floor/unit and/or counseling patient: Coding Level of Care Code 30946 Subseq Hosp Care Lvl 3 Diagnoses Colonic mass K63.89 Abdominal pain, lower R10.30 Abdominal aortic aneurysm I71.4 Anemia D64.9 DVT prophylaxis Z29.9
[2019-09-06 08:25] LABS: Albumin Level 2.6 gm/dl (3.4-5.0); Calcium 8.3 mg/dl (8.5-10.1); Creatinine Clr Calc Pharmacy 72.9 ml/min; Est GFR (African American) 88.1; Est GFR (Non-African American) 76.1; Potassium 4.4 mmol/L (3.5-5.1)
[2019-09-06 08:29] LABS: Albumin Globulin Ratio 0.8 (0.9-2); Bilirubin,Total 0.5 mg/dl (0.2-1); Globulin 3.4 gm/dl (2.5-4.0); Phosphorus 1.7 mg/dl (2.5-4.9)
--- NOTE | 2019-09-06 10:44 | Consultation ---
Date of Consultation September 06, 2019 Assessment & Plan (1) Abdominal aortic aneurysm: At this point we will let him get over his abdominal surgery. We will see him in the office in 6 weeks after his discharge to discuss plans for possible elective repair of the aneurysm depending on what treatments he will undergo for his colon mass that was resected. He will need a CTA of his abdominal aorta and pelvic vessels. (2) Ascending aortic aneurysm: We obtained a CTA of his abdomen we will include the chest to better evaluate the a sending aorta as well as the descending aorta. Thank you very much for letting us participate in the care of this patient. History of Present Illness Reason for Consultation: Abdominal aortic aneurysm Attending Physician: Robert Flores MD History of Present Illness This is a 73-year-old gentleman who presented with abdominal pain and a known abdominal iliac aneurysm. On CAT scan the aneurysm was non-ruptured. During his work-up he was found to have a transverse colon mass. He underwent resection of a transverse colon mass 2 days prior to this. Consultation was obtained for evaluation of the abdominal aortic aneurysm. He has no complaints of claudication or ulcerations in his feet. He has no symptoms with rest insufficiency. 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: No Beliefs That Will Affect Care: None Current Living Situation: Spouse Other Information That Helps Us Care for You: No Feels Safe at Home: Yes Safety Concerns: Feels Safe At This Time Smoking Status: Former smoker Age Quit Using Tobacco: 37 ; Hx Alcohol Use: No Hx Substance Use: No Review of Systems Review of Systems: All systems reviewed & are unremarkable except as noted in HPI & below Physical Exam Constitutional: well developed and well nourished Respiratory: normal respiratory effort; no respiratory distress Auscultation: lungs clear to auscultation bilaterally Cardiovascular: Rate/Rhythm: regular rate and regular rhythm Gastrointestinal (Abdomen): Inspection/Auscultation: abdomen normal to inspection and + abdomen distended (Slightly) Percussion/Palpation: + abdomen tender (Tender to the incision in the abdominal cavity.) and abdomen soft Musculoskeletal: no cyanosis or clubbing, extremities motor strength 5/5 Skin: no rashes, warm and dry Neurologic: CN's II-XI intact bilaterally Speech / Cognition: normal speech Motor/Sensory: normal movement and no sensory deficit Psychiatric: Orientation: alert and oriented x 3 Results & Data Vital Signs (Past 12 Hours) Vital Signs Temp Pulse Pulse Resp BP Pulse Ox 09/06/19 07:47 90 09/06/19 07:32 36.9 C 89 18 139/76 91 09/06/19 03:13 36.5 C 90 19 129/77 93 09/05/19 23:16 37.2 C 90 19 133/[address] of the abdomen showed a 5 and half centimeter infrarenal abdominal aortic aneurysm. The CT had also cut through the root of the aorta. There is question of mild dilatation of the aortic root as well as mild aortomegaly about the thoracic aorta.
[2019-09-06] MEDS ORDERED: SODIUM PHOSPHATE 21 MMOL in SODIUM CHLORIDE 0.9% 500 ML IV ONE (13:30)
[2019-09-07] MEDS: HYDROmorphone INJ 0.5 MG/0.5 ML SYR IV PRN ×2 (00:47→17:58)
--- NOTE | 2019-09-07 02:54 | Communication Note ---
Date of Service: September 07, 2019 Notified by nursing that pt is now requiring 5L of O2 with oxymask, when he has no oxygen requirement at home. Per nursing, he de-saturates quickly when his oxygen is weaned down. Last chest XR from 09/03, repeat portable ordered and compared. Noted pleural effusions on new xray when compared to previous. Fluids were held and pt was given IV Lasix 40mg. 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
[2019-09-07] MEDS ORDERED: FUROSEMIDE 40 MG in SYRINGE 0 ML IV ONE (04:00)
[2019-09-07] MEDS: PIPERACILLIN/TAZOBACTAM 3.375 GM in DEXTROSE 5% 100 ML IV SCH ×3 (04:27→20:13)
[2019-09-07 07:04] LABS: Basophils # (auto) 0.02 K/uL (0-0.2); Basophils % (auto) 0.3 %; Eosinophils # (auto) 0.03 K/uL (0-0.5); Eosinophils % (auto) 0.4 %; Hematocrit (blood only) 35.2 % (42-52); Hemoglobin 11.6 g/dL (14.0-18.0); Immature Granulocytes # (auto) 0.01 K/uL (0.00-0.02); Immature Granulocytes % (auto) 0.1 %; Lymphocytes # (auto) 0.53 K/uL (1.2-3.4); Lymphocytes % (auto) 7.7 %; Mean Corpuscular Hemoglobin 27.7 pg (25-34); Mean Platelet Volume 11.6 fL (7.4-10.4); Monocytes # (auto) 0.88 K/uL (0.11-0.59); Monocytes % (auto) 12.8 %; Neutrophils # (auto) 5.39 K/uL (1.4-6.5); Neutrophils % (auto) 78.7 %; Platelet Count 211 K/uL (130-400); RDW Coefficient of Variation 15.4 % (11.5-14.5); RDW Standard Deviation 47.3 fL (36.4-46.3); Red Blood Count 4.19 M/uL (4.7-6.1); White Blood Count 6.86 K/uL (4.8-10.8)
[2019-09-07 07:53] LABS: Albumin Globulin Ratio 0.7 (0.9-2); BUN Creatinine Ratio 11.8 (10-20); Bilirubin,Total 0.8 mg/dl (0.2-1); Calcium 8.8 mg/dl (8.5-10.1); Creatinine Clr Calc Pharmacy 70.8 ml/min; Est GFR (Non-African American) 73.3; Globulin 4.1 gm/dl (2.5-4.0); Phosphorus 1.3 mg/dl (2.5-4.9); Potassium 3.5 mmol/L (3.5-5.1); Total Protein 7.1 gm/dl (6.4-8.2)
--- NOTE | 2019-09-07 07:58 | XRay Report ---
XR chest 1V portable CLINICAL HISTORY: SOB dyspnea COMPARISON STUDY: 09/04/2019 FINDINGS: Mild stable cardiomegaly. Nasogastric tube within the stomach. Prominent pulmonary vasculature. IMPRESSION: Mild cardiomegaly. Slight chronic prominence of the pulmonary vasculature. ACT 112: Negative or not required by law. The above report was generated using voice recognition software. It may contain grammatical, syntax or spelling errors. Electronically signed by: Nolan Ernst M.D. 09/07/2019 7:56 AM
--- NOTE | 2019-09-07 08:05 | Surgery Progress Note ---
Date of Service September 07, 2019 Assessment & Plan (1) H/O colectomy: low O2 sats during evening- req O2 cxr- pulm edema- diuresed NG- bilious outpt abd mod distention try to keep NG one more day discuss IV fluids with med team' NPO for unknown duration Results & Data Vital Signs (Past 12 Hours) Vital Signs Temp Pulse Resp BP Pulse Ox 09/07/19 07:41 36.5 C 91 H 16 142/86 H 92 09/07/19 04:00 36.8 C 82 18 152/81 H 91 09/06/19 23:32 152/80 H 09/06/19 22:48 36.4 C L 89 18 161/92 H 94 PG Care Time/CCT Total # of Minutes Spent Total Time Spent with Patient: Total time spent is greater than 50% in coordination of care (as documented) at patient's floor/unit and/or counseling patient: Coding Level of Care Code None Diagnoses H/O colectomy Z90.49
[2019-09-07] MEDS ORDERED: POTASSIUM PHOS 3 MMOL/1 ML INFUSION IV STA (08:57)
[2019-09-07] MEDS ORDERED: HEPARIN SOD 5,000 UNIT/0.5 ML VIAL SQ SCH (09:00)
[2019-09-07] MEDS ORDERED: POTASSIUM PHOSPHATE 24 MMOL in SODIUM CHLORIDE 0.9% 500 ML IV ONE (09:45)
[2019-09-07] MEDS ORDERED: TPN/PPN CONSULT PHARMACY PRN (13:30)
[2019-09-07] MEDS ORDERED: SODIUM CHLORIDE 0.65% NA SOLN 45 ML (OCEAN) PRN (13:51)
[2019-09-07] MEDS ORDERED: DEXTROSE 10% 1,000 ML IV PRN (14:10)
--- NOTE | 2019-09-07 14:23 | Pharmacy Report ---
Pharmacy PN Initial Consult - Date of Service September 07, 2019 - Scope Pharmacy has been consulted to manage parenteral nutrition orders and order appropriate labs. As part of the Nutrition Support Team guidelines, pharmacy will work in conjunction with dietary when determining the patients caloric needs. - Subjective The patient is a 73 year old M admitted on 09/04/19 16:33 for COLITIS, COLONIC MASS. Patient is to receive parenteral nutrition for prolonged NPO status after surgery. Pertinent PMH: anemia, currently fluid overloaded s/p 1 dose of Lasix - Objective Height: 5 ft 7 in Weight: 96.8 kg Diet: NPO Vascular Access:: peripheral Intake & Output (Last 24Hrs): Intake & Output 09/05/19 09/06/19 09/07/19 09/08/19 06:59 06:59 06:59 06:59 Intake Total 2018.0 / 2018.0 5296.5 / 5296.5 3774.083 / 3774.083 115 / 115 Output Total 250 / 250 1250 / 1250 2380 / 2380 1670 / 1670 Balance 1768.0 / 1768.0 4046.5 / 4046.5 1394.083 / 1394.083 -1555 / -1555 Weight 95 kg 96.8 kg 96.8 kg Laboratory Data (Last 24 Hrs):: 09/07/19 06:49 Sodium 141 Potassium 3.5 D Chloride 104 Carbon Dioxide 32 BUN 12 Creatinine 1.00 Glucose 111 H Calcium 8.8 Phosphorus 1.3 L* Magnesium 2.0 Total Bilirubin 0.8 AST 12 L ALT 20 Alkaline Phosphatase 60 Albumin 3.0 L Nutrition Assessment:: Please refer to the Notes section of the EMR for the most recent load dispatcher note. - Assessment Mr Kline is a 73 y/o M who underwent surgery to remove a colonic mass. Today he is s/p 1 dose of Lasix due to fluid overload. His electrolytes are stable except for phosphorus which is trending down. - Plan Per discussion with Dr Flores, patient is fluid overloaded. He was okay with PPN of 2400 mL but was happy that a PPN of 2000 mL was able to be made instead. A discussion was also had regarding phosphorus -- there was some concern that the dextrose in the large volume fluids was pushing the phosphorus low. Patient was receiving around 125 grams/day. Started PPN low at [address] Flores will check phosphorus level around 1700 tonight and replete as necessary. For day 1 of PN administration, the following will be ordered: Macronutrients Amino acids 70 grams/day Dextrose 75 grams/day Lipids 50 grams/day Micronutrients Combined electrolytes 20 mL - contains 35 mEq Na, 20 meq K, 4.5 mEq Ca, 5 mEq Mg, 35 mEq Cl, 29.5 mEq acetate per 20 mL Sodium phosphate -- MMol Sodium chloride 100 mEq Sodium acetate 20 mEq Potassium phosphate 21 mMol Potassium chloride 30 mEq Potassium acetate -- mEq Magnesium sulfate -- mEq Calcium gluconate -- mEq Multivitamins 10 mL Trace Elements 10 mL Additional additives: Total volume 2000 mL to be infused over 24 hrs will provide 1035 kcal/day Final osmolarity 765 mOsm/L (maximum for PPN is 900 mOsm/L) Labs to be ordered per PN order protocol Pharmacy will follow and adjust parenteral nutrition orders on a daily basis. Thank you.
[2019-09-07] MEDS ORDERED: Custom Peripheral Pn 2,000 ML in TPN BAG 0 ML IV SCH (16:00)
[2019-09-07] MEDS: ENOXAPARIN INJ 40 MG/0.4 ML SYR SQ SCH (20:13)
[2019-09-08] MEDS: HYDROmorphone INJ 0.5 MG/0.5 ML SYR IV PRN ×2 (01:00→23:59)
[2019-09-08] MEDS: PIPERACILLIN/TAZOBACTAM 3.375 GM in DEXTROSE 5% 100 ML IV SCH ×3 (04:38→20:50)
[2019-09-08 05:51] LABS: Creatinine Clr Calc Pharmacy 76.4 ml/min; Est GFR (African American) 96.5; Est GFR (Non-African American) 83.3; Magnesium 2.5 mg/dl (1.8-2.4); Phosphorus 3.1 mg/dl (2.5-4.9); Potassium 3.7 mmol/L (3.5-5.1)
--- NOTE | 2019-09-08 07:46 | Surgery Progress Note ---
Date of Service September 08, 2019 Assessment & Plan (1) Colonic mass: breathing better signif NG output feels some abd "rumbling" no bm/flatus ppn begun- will help improve proteins try NG clamping check lytes, mg, phos Results & Data Vital Signs (Past 12 Hours) Vital Signs Temp Pulse Pulse Resp BP Pulse Ox 09/08/19 07:07 36.6 C 92 H 16 132/87 95 09/08/19 02:52 152/78 H 09/07/19 23:07 36.3 C L 82 18 164/92 H 95 PG Care Time/CCT Total # of Minutes Spent Total Time Spent with Patient: Total time spent is greater than 50% in coordination of care (as documented) at patient's floor/unit and/or counseling patient: Coding Level of Care Code None Diagnoses Colonic mass K63.89
[2019-09-08] MEDS: HYDROmorphone INJ 1 MG/ML SYRINGE IV PRN (10:20)
--- NOTE | 2019-09-08 13:42 | Hospitalist Progress Note ---
Date of Service September 08, 2019 Assessment & Plan (1) Colonic mass: PT had 09/05/19 Right Hemicolectomy Surgeon: Codey Child Pt has had a persistent post operative ileus and persistent NG drainage, did have some issues with respiratory distress and was volume overloaded, did have lasix overnight 1616 by the chart he is a few liters ahead, and likely with poor nutrition. Patient has recovered with his respiratory issues. We will consider discontinuation of antibiotics once ileus is resolved Did start PPN in the afternoon of 09/06 following electrolytes and phosphorus, deficiencies are replete pathology is not returned yet (2) Abdominal pain, lower: now s/p resection and reanastamosis pain is post operative may attempt to use an abdominal binder to help with pain when he sits and stands Pain control with parenteral Tylenol and morphine (3) Abdominal aortic aneurysm: will need Dr. Mason follow up appointment and also imaging CT/US to evaluate his abdominal aortic as mentioned below CT abdomen pelvis IMPRESSION: 1. Apparent high-grade luminal narrowing of the hepatic flexure is noted with soft tissue thickening suspicious for a mucosal neoplasm measuring up to 2.8 x 1.8 cm. Correlation with GI consultation and endoscopy is recommended. This results in dilation with moderate fecal retention of the terminal ileum, cecum and ascending colon. Enteric contrast progresses to the ileocecal valve excluding small bowel obstruction. 2. Wall thickening throughout the cecum and ascending colon with pericolonic stranding and trace free fluid of the pericolic gutter is likely reactive. A nonspecific colitis could appear similarly. 3. Dilated fluid-filled appendix is also likely secondary to the aforementioned colonic findings. Acute appendicitis is considered less likely. 4. Colonic diverticulosis without acute diverticulitis. 5. Fusiform aneurysmal dilation of the distal infrarenal abdominal aorta, 5.5 x 4.4 cm. (4) Anemia: Low normal MCV. Hgb 17.3 in 2018, pleasant 12 g range on presentation (5) DVT prophylaxis: Patient remains on heparin therapy Admission and Anticipated Discharge Date Admission Date: September 04, 2019 Subjective this pt is still somewhat disappointed in lack of progress toward getting NGT reemoved, did have recoreded almost 3 L ng outptu in last day, feels some rumblings in abdomen, surgery has decided to clamp ngt and allow to ambulate. path still pending Review of Systems Review of Systems: Mild to moderate distress and fatigue no headache, blurry or double vision no speech or swallowing issues no chest pain, pressure or palpitations no shortness of breath, cough or wheezes Low-grade generalized diffuse abdominal pain, focal pain at his incision site, no nausea or vomiting, persistent with constipation no dysuria, hematuria or frequency no focal joint pain or swelling no back pain, CVA tenderness or radicular pain no bruising, bleeding or rashes no focal signs of weakness or numbness or altered sensation no complaints or anxiety or depression. Physical Exam Physical Exam: The patient appeared fatigued. Vital signs as documented. Head exam is normocephalic atraumatic no scleral icterus Neck is without JVD, thyromegaly, or carotid bruits. Lungs are clear to auscultation but diminished at the bases Cardiac exam, Rhythm is regular.. No murmurs, rubs or gallops. Abdominal exam reveals absent bowel sounds, soft tender right side NATHALY drain in place Extremities are nonedematous and both pedal pulses are normal. Neurologic exam is alert and oriented, no focal loss of strength or sensation Psychologically is without concerns for anxiety or depression Results & Data Results & Data ([facility]) Vital Signs (Past 12 Hours) Vital Signs Temp Pulse Resp BP Pulse Ox 09/08/19 07:07 97.9 F 92 H 16 132/87 95 09/08/19 02:52 152/78 H PG Care Time/CCT Total # of Minutes Spent Total Time Spent with Patient: Total time spent is greater than 50% in coordination of care (as documented) at patient's floor/unit and/or counseling patient: Coding Level of Care Code 86949 Subseq Hosp Care Lvl 3 Diagnoses Colonic mass K63.89 Abdominal pain, lower R10.30 Abdominal aortic aneurysm I71.4 Anemia D64.9 DVT prophylaxis Z29.9
--- NOTE | 2019-09-08 15:07 | Hospitalist Progress Note ---
Date of Service September 08, 2019 Assessment & Plan (1) Colonic mass: PT had 09/05/19 Right Hemicolectomy Surgeon: Codey Child Pt has had a persistent post operative ileus and persistent NG drainage, did have some issues with respiratory distress and was volume overloaded, did have lasix overnight 1616 by the chart he is a few liters ahead, and likely with poor nutrition. Patient has recovered with his respiratory issues. We will consider discontinuation of antibiotics once ileus is resolved ileus is an expected complication of care s/p colon resection awaiting results for suspected neoplasm of colon pt is now with severe protein calorie malnutrition Did start PPN in the afternoon of 09/06 following electrolytes and phosphorus, deficiencies are replete pathology is not returned yet (2) Abdominal pain, lower: now s/p resection and reanastamosis pain is post operative may attempt to use an abdominal binder to help with pain when he sits and stands Pain control with parenteral Tylenol and morphine (3) Abdominal aortic aneurysm: will need Dr. Mason follow up appointment and also imaging CT/US to evaluate his abdominal aortic as mentioned below CT abdomen pelvis IMPRESSION: 1. Apparent high-grade luminal narrowing of the hepatic flexure is noted with soft tissue thickening suspicious for a mucosal neoplasm measuring up to 2.8 x 1.8 cm. Correlation with GI consultation and endoscopy is recommended. This results in dilation with moderate fecal retention of the terminal ileum, cecum and ascending colon. Enteric contrast progresses to the ileocecal valve excluding small bowel obstruction. 2. Wall thickening throughout the cecum and ascending colon with pericolonic stranding and trace free fluid of the pericolic gutter is likely reactive. A nonspecific colitis could appear similarly. 3. Dilated fluid-filled appendix is also likely secondary to the aforementioned colonic findings. Acute appendicitis is considered less likely. 4. Colonic diverticulosis without acute diverticulitis. 5. Fusiform aneurysmal dilation of the distal infrarenal abdominal aorta, 5.5 x 4.4 cm. (4) Anemia: Low normal MCV. Hgb 17.3 in 2018, pleasant 12 g range on presentation (5) DVT prophylaxis: Patient remains on heparin therapy Admission and Anticipated Discharge Date Admission Date: September 04, 2019 Results & Data Results & Data ([facility]) Vital Signs (Past 12 Hours) Vital Signs Temp Pulse Resp BP Pulse Ox 09/08/19 07:07 97.9 F 92 H 16 132/87 95 PG Care Time/CCT Total # of Minutes Spent Total Time Spent with Patient: Total time spent is greater than 50% in coordination of care (as documented) at patient's floor/unit and/or counseling patient: Coding Level of Care Code 37475 Subseq Hosp Care Lvl 3 Diagnoses Colonic mass K63.89 Abdominal pain, lower R10.30 Abdominal aortic aneurysm I71.4 Anemia D64.9 DVT prophylaxis Z29.9
[2019-09-08] MEDS ORDERED: Custom Peripheral Pn 2,000 ML in TPN BAG 0 ML IV SCH (16:00)
[2019-09-08] MEDS: ENOXAPARIN INJ 40 MG/0.4 ML SYR SQ SCH (20:50)
[2019-09-09] MEDS: PIPERACILLIN/TAZOBACTAM 3.375 GM in DEXTROSE 5% 100 ML IV SCH ×2 (04:27→12:14)
[2019-09-09 05:28] LABS: BUN Creatinine Ratio 29.6 (10-20); Calcium 9.1 mg/dl (8.5-10.1); Creatinine Clr Calc Pharmacy 75.9 ml/min; Est GFR (African American) 96.5; Est GFR (Non-African American) 83.3; Magnesium 2.4 mg/dl (1.8-2.4); Phosphorus 3.4 mg/dl (2.5-4.9); Potassium 3.5 mmol/L (3.5-5.1)
[2019-09-09] MEDS: HYDROmorphone INJ 0.5 MG/0.5 ML SYR IV PRN ×2 (05:54→16:44)
--- NOTE | 2019-09-09 08:01 | Surgery Progress Note ---
Date of Service September 09, 2019 Assessment & Plan (1) H/O colectomy: NG removed- had bm sips/popsicles today- prob adv to clears tomorrow cont ppn today leave drain for now overall slow progress Results & Data Vital Signs (Past 12 Hours) Vital Signs Temp Pulse Pulse Resp BP Pulse Ox 09/09/19 07:19 86 18 130/84 97 09/08/19 23:29 36.7 C 85 20 127/84 95 PG Care Time/CCT Total # of Minutes Spent Total Time Spent with Patient: Total time spent is greater than 50% in coordination of care (as documented) at patient's floor/unit and/or counseling patient: Coding Level of Care Code None Diagnoses H/O colectomy Z90.49
[2019-09-09] MEDS: SENNOSIDES 8.8 MG/5 ML UDC PO SCH ×2 (09:35→20:11)
--- NOTE | 2019-09-09 13:39 | Hospitalist Progress Note ---
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 The patient has had invasive to muscularis propria into the perirectal tissue though seen on biopsy Patient has NG tube removed and surgery is advancing diet discontinuation of antibiotics now that ileus is resolved ileus is an expected complication of care s/p colon resection awaiting results for suspected neoplasm of colon pt is now with severe protein calorie malnutrition We will continue on PPN likely discontinue 09/10/2019 Price Cunningham this is [place] however great (2) Abdominal pain, lower: now s/p resection and reanastamosis pain is post operative may attempt to use an abdominal binder to help with pain when he sits and stands Pain control with parenteral Tylenol and morphine (3) Abdominal aortic aneurysm: will need Dr. Mason follow up appointment and also imaging CT/US to evaluate his abdominal aortic as mentioned below CT abdomen pelvis IMPRESSION: 1. Apparent high-grade luminal narrowing of the hepatic flexure is noted with soft tissue thickening suspicious for a mucosal neoplasm measuring up to 2.8 x 1.8 cm. Correlation with GI consultation and endoscopy is recommended. This results in dilation with moderate fecal retention of the terminal ileum, cecum and ascending colon. Enteric contrast progresses to the ileocecal valve excluding small bowel obstruction. 2. Wall thickening throughout the cecum and ascending colon with pericolonic stranding and trace free fluid of the pericolic gutter is likely reactive. A nonspecific colitis could appear similarly. 3. Dilated fluid-filled appendix is also likely secondary to the aforementioned colonic findings. Acute appendicitis is considered less likely. 4. Colonic diverticulosis without acute diverticulitis. 5. Fusiform aneurysmal dilation of the distal infrarenal abdominal aorta, 5.5 x 4.4 cm. (4) Anemia: Low normal MCV. Hgb 17.3 in 2018, pleasant 12 g range on presentation (5) DVT prophylaxis: Patient remains on heparin therapy Admission and Anticipated Discharge Date Admission Date: September 04, 2019 Subjective Patient feels much better today his NG tube is been removed and has had bowel movements x3. Patient also was disclosed that his biopsy results did come back adenocarcinoma. Patient still is looking forward to a escalating his diet and eventually going home Review of Systems Review of Systems: Mild to moderate distress and fatigue no headache, blurry or double vision no speech or swallowing issues no chest pain, pressure or palpitations no shortness of breath, cough or wheezes Low-grade generalized diffuse abdominal pain, focal pain remains at his incision site, no nausea or vomiting, has had good bowel movements no dysuria, hematuria or frequency no focal joint pain or swelling no back pain, CVA tenderness or radicular pain no bruising, bleeding or rashes no focal signs of weakness or numbness or altered sensation no complaints or anxiety or depression. Physical Exam Physical Exam: The patient appeared fatigued. Vital signs as documented. Head exam is normocephalic atraumatic no scleral icterus Neck is without JVD, thyromegaly, or carotid bruits. Lungs are clear to auscultation but diminished at the bases Cardiac exam, Rhythm is regular.. No murmurs, rubs or gallops. Abdominal exam reveals normal active bowel sounds, soft tender right side NATHALY drain in place Extremities are nonedematous and both pedal pulses are normal. Neurologic exam is alert and oriented, no focal loss of strength or sensation Psychologically is without concerns for anxiety or depression Results & Data Results & Data ([facility]) Vital Signs (Past 12 Hours) Vital Signs Temp Pulse Resp BP Pulse Ox 09/09/19 07:19 98.4 F 86 18 130/84 97 PG Care Time/CCT Total # of Minutes Spent Total Time Spent with Patient: Total time spent is greater than 50% in coordinat ion of care (as documented) at patient's floor/unit and/or counseling patient: Coding Level of Care Code 43273 Subseq Hosp Care Lvl 2 Diagnoses Colonic mass K63.89 Abdominal pain, lower R10.30 Abdominal aortic aneurysm I71.4 Anemia D64.9 DVT prophylaxis Z29.9
[2019-09-09] MEDS ORDERED: Custom Peripheral Pn 2,000 ML in TPN BAG 0 ML IV SCH (16:00)
[2019-09-09] MEDS: ENOXAPARIN INJ 40 MG/0.4 ML SYR SQ SCH (20:11)
[2019-09-10] MEDS ORDERED: DiphenhydrAMINE HCL 50 MG/ML VIAL IV STA (02:11)
[2019-09-10 07:11] LABS: Calcium 8.7 mg/dl (8.5-10.1); Creatinine Clr Calc Pharmacy 76.5 ml/min; Est GFR (African American) 96.9; Est GFR (Non-African American) 83.6; Magnesium 2.3 mg/dl (1.8-2.4); Phosphorus 2.9 mg/dl (2.5-4.9); Potassium 3.8 mmol/L (3.5-5.1)
[2019-09-10] MEDS: SENNOSIDES 8.8 MG/5 ML UDC PO SCH ×2 (08:29→21:59)
--- NOTE | 2019-09-10 10:07 | Surgery Progress Note ---
Date of Service September 10, 2019 Assessment & Plan (1) H/O colectomy: Postoperative day #5 status post right hemicolectomy Patient is doing well Peristalsis has returned and bowels are moving Will advance to clear liquid diet Encouraged ambulation Subjective Postoperative day #5 status post right hemicolectomy Feeling well today Hungry Tolerated sips of liquids Denies nausea and vomiting Has been having bowel movements and passing flatus NATHALY drain put out 150 cc yesterday and 40 cc last shift all serosanguineous Physical Exam Gastrointestinal (Abdomen): Inspection/Auscultation: + abdominal surgical incision (Clean, dry and intact); abdomen not distended Percussion/Palpation: + abdomen tender (Minimal) and abdomen soft Results & Data Vital Signs (Past 12 Hours) Vital Signs Temp Pulse Resp BP Pulse Ox Pulse Ox 09/10/19 06:19 36.5 C 80 20 133/83 98 09/09/19 23:45 94 09/09/19 23:35 37.0 C 77 19 136/79 94 Laboratory Results 09/10/19 09/10/19 09/10/19 Range/Units 06:04 05:44 00:10 Sodium 142 (136-145) mmol/L Potassium 3.8 (3.5-5.1) mmol/L Chloride 106 (98-107) mmol/L Carbon Dioxide 33 H (21-32) mmol/L Anion Gap 3.0 (3-11) BUN 26 H (7-18) mg/dl Creatinine 0.89 (0.6-1.4) mg/dl Est Cr Clr Drug Dosing 76.5 ml/min Est GFR ( Amer) 96.9 Est GFR (Non-Af Amer) 83.6 BUN/Creatinine Ratio 29.0 H (10-20) Glucose 102 H (70-99) mg/dl POC Glucose 107 H 103 H (70-99) mg/dl Calcium 8.7 (8.5-10.1) mg/dl Phosphorus 2.9 (2.5-4.9) mg/dl Magnesium 2.3 (1.8-2.4) mg/dl Triglycerides (0-150) mg/dl 09/09/19 09/09/19 09/09/19 Range/Units 18:03 12:17 04:49 Sodium (136-145) mmol/L Potassium (3.5-5.1) mmol/L Chloride (98-107) mmol/L Carbon Dioxide (21-32) mmol/L Anion Gap (3-11) BUN (7-18) mg/dl Creatinine (0.6-1.4) mg/dl Est Cr Clr Drug Dosing ml/min Est GFR ( Amer) Est GFR (Non-Af Amer) BUN/Creatinine Ratio (10-20) Glucose (70-99) mg/dl POC Glucose 146 H 117 H (70-99) mg/dl Calcium (8.5-10.1) mg/dl Phosphorus (2.5-4.9) mg/dl Magnesium (1.8-2.4) mg/dl Triglycerides 128 (0-150) mg/dl
--- NOTE | 2019-09-10 16:56 | Hospitalist Progress Note ---
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 The patient has had invasive to muscularis propria into the perirectal tissue though seen on biopsy Patient has NG tube removed and surgery is advancing diet discontinuation of antibiotics now that ileus is resolved ileus is an expected complication of care s/p colon resection discontinue PPN 09/10/2019 pathology reveals adenocarcinoma, good margins, negative ln, g2 subtype, but did grow thru musularis propria (2) Abdominal pain, lower: now s/p resection and reanastamosis improving (3) Abdominal aortic aneurysm: will need Dr. Mason follow up appointment and also imaging CT/US to ev aluate his abdominal aortic as mentioned below CT abdomen pelvis IMPRESSION: 1. Apparent high-grade luminal narrowing of the hepatic flexure is noted with soft tissue thickening suspicious for a mucosal neoplasm measuring up to 2.8 x 1.8 cm. Correlation with GI consultation and endoscopy is recommended. This results in dilation with moderate fecal retention of the terminal ileum, cecum and ascending colon. Enteric contrast progresses to the ileocecal valve excluding small bowel obstruction. 2. Wall thickening throughout the cecum and ascending colon with pericolonic stranding and trace free fluid of the pericolic gutter is likely reactive. A nonspecific colitis could appear similarly. 3. Dilated fluid-filled appendix is also likely secondary to the aforementioned colonic findings. Acute appendicitis is considered less likely. 4. Colonic diverticulosis without acute diverticulitis. 5. Fusiform aneurysmal dilation of the distal infrarenal abdominal aorta, 5.5 x 4.4 cm. (4) Anemia: Low normal MCV. Hgb 17.3 in 2018, pleasant 12 g range on presentation (5) DVT prophylaxis: Patient remains on heparin therapy Admission and Anticipated Discharge Date Admission Date: September 04, 2019 Subjective pt is improved, has BM and flatus, tolerating no NG tube, hungry for advanced diet looking forward to going home Review of Systems Review of Systems: Mild to moderate distress and fatigue no headache, blurry or double vision no speech or swallowing issues no chest pain, pressure or palpitations no shortness of breath, cough or wheezes abdominal pain only with cough and movement no dysuria, hematuria or frequency no focal joint pain or swelling no back pain, CVA tenderness or radicular pain no bruising, bleeding or rashes no focal signs of weakness or numbness or altered sensation no complaints or anxiety or depression. Physical Exam Physical Exam: The patient appeared fatigued. Vital signs as documented. Head exam is normocephalic atraumatic no scleral icterus Neck is without JVD, thyromegaly, or carotid bruits. Lungs are clear to auscultation but diminished at the bases Cardiac exam, Rhythm is regular.. No murmurs, rubs or gallops. Abdominal exam reveals normal active bowel sounds, soft tender right side NATHALY drain in place Extremities are nonedematous and both pedal pulses are normal. Neurologic exam is alert and oriented, no focal loss of strength or sensation Psychologically is without concerns for anxiety or depression Results & Data Results & Data ([facility]) Vital Signs (Past 12 Hours) Vital Signs Temp Pulse Resp BP Pulse Ox 09/10/19 15:42 97.7 F 81 16 128/80 92 09/10/19 06:19 97.7 F 80 20 133/83 98 PG Care Time/CCT Total # of Minutes Spent Total Time Spent with Patient: Total time spent is greater than 50% in [facility] [place] [facility] (as documented) at patient's floor/unit and/or counseling patient: Coding Level of Care Code 95966 Subseq Hosp Care Lvl 2 Diagnoses Colonic mass K63.89 Abdominal pain, lower R10.30 Abdominal aortic aneurysm I71.4 Anemia D64.9 DVT prophylaxis Z29.9
[2019-09-10] MEDS: ENOXAPARIN INJ 40 MG/0.4 ML SYR SQ SCH (21:55)
[2019-09-11] MEDS ORDERED: MELATONIN 3 MG TAB PO PRN (01:15)
--- NOTE | 2019-09-11 01:15 | Communication Note ---
Date of Service: September 11, 2019 Notified that pt was requesting to see MD for redness and swelling at previous PPN site. On exam, red with some warmth but likely secondary to recent infusion at that site. NTD currently but monitor. Pt was also given melatonin to help with sleep. 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
[2019-09-11] MEDS: SENNOSIDES 8.8 MG/5 ML UDC PO SCH ×2 (07:37→20:06)
--- NOTE | 2019-09-11 09:02 | Surgery Progress Note ---
Date of Service September 11, 2019 Assessment & Plan (1) H/O colectomy: Postoperative day #6 status post right colectomy Doing very well Tolerating diet hungry for food Can start low fiber diet Should be ready for discharge soon Encouraged ambulation Subjective Postoperative day #6 status post right hemicolectomy Tolerated clear liquid diet yesterday Having bowel movements Denies nausea and vomiting Hungry for regular food Ambulated NATHALY drain at 210 cc out yesterday and 90 cc last shift all serosanguineous Physical Exam Gastrointestinal (Abdomen): Inspection/Auscultation: + abdominal surgical incision (Clean dry and intact); abdomen not distended Percussion/Palpation: abdomen soft; abdomen nontender Results & Data Vital Signs (Past 12 Hours) Vital Signs Temp Pulse Resp BP Pulse Ox Pulse Ox 09/11/19 07:30 37.1 C 80 16 128/80 95 09/11/19 00:20 94 09/10/19 23:41 36.8 C 80 16 128/83 94
--- NOTE | 2019-09-11 12:41 | Hospitalist Progress Note ---
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 The patient has had invasive to muscularis propria into the perirectal tissue though seen on biopsy Patient has NG tube removed and surgery is advancing diet discontinuation of antibiotics now that ileus is resolved ileus is an expected complication of care s/p colon resection discontinue PPN 09/10/2019 patient did have a subcutaneous infiltrate of his PPN he does have some discomfort to his left arm does not appear to be a phlebitis at this time pathology reveals adenocarcinoma, good margins, negative ln, g2 subtype, but did grow thru musularis propria will need outpatient follow-up with oncology (2) Abdominal pain, lower: now s/p resection and reanastamosis improving (3) Abdominal aortic aneurysm: will need Dr. Mason follow up appointment and also imaging CT/US to evaluate his abdominal aortic as mentioned below CT abdomen pelvis IMPRESSION: 1. Apparent high-grade luminal narrowing of the hepatic flexure is noted with soft tissue thickening suspicious for a mucosal neoplasm measuring up to 2.8 x 1.8 cm. Correlation with GI consultation and endoscopy is recommended. This results in dilation with moderate fecal retention of the terminal ileum, cecum and ascending colon. Enteric contrast progresses to the ileocecal valve excluding small bowel obstruction. 2. Wall thickening throughout the cecum and ascending colon with pericolonic stranding and trace free fluid of the pericolic gutter is likely reactive. A nonspecific colitis could appear similarly. 3. Dilated fluid-filled appendix is also likely secondary to the aforementioned colonic findings. Acute appendicitis is considered less likely. 4. Colonic diverticulosis without acute diverticulitis. 5. Fusiform aneurysmal dilation of the distal infrarenal abdominal aorta, 5.5 x 4.4 cm. (4) Anemia: Low normal MCV. Hgb 17.3 in 2018, pleasant 12 g range on presentation (5) DVT prophylaxis: Patient remains on heparin therapy Admission and Anticipated Discharge Date Admission Date: September 04, 2019 Subjective Patient is status post hemicolectomy for obstructive tumor found to be adenocarcinoma. Surgery was on 09/05/2019. Patient has slow progress but advancement of his diet. His NATHALY drainage continues to drain sero-sanguinous liquid. His pain is much improved he is having bowel movements tolerating advancement of his diet Review of Systems Review of Systems: Mild to moderate distress and fatigue no headache, blurry or double vision no speech or swallowing issues no chest pain, pressure or palpitations no shortness of breath, cough or wheezes abdominal pain only with cough and movement improving daily no dysuria, hematuria or frequency no focal joint pain or swelling no back pain, CVA tenderness or radicular pain no bruising, bleeding or rashes no focal signs of weakness or numbness or altered sensation no complaints or anxiety or depression. Physical Exam Physical Exam: The patient appeared fatigued. Vital signs as documented. Head exam is normocephalic atraumatic no scleral icterus Neck is without JVD, thyromegaly, or carotid bruits. Lungs are clear to auscultation but diminished at the bases Cardiac exam, Rhythm is regular.. No murmurs, rubs or gallops. Abdominal exam reveals normal active bowel sounds, soft tender right side NATHALY drain in place it is filled with a magdalena thin liquid at this time Extremities are nonedematous and both pedal pulses are normal. Neurologic exam is alert and oriented, no focal loss of strength or sensation Psychologically is without concerns for anxiety or depression Results & Data Results & Data ([facility]) Vital Signs (Past 12 Hours) Vital Signs Temp Pulse Resp BP Pulse Ox 09/11/19 07:30 98.8 F 80 16 128/80 95 PG Care Time/CCT Total # of Minutes Spent Total Time Spent with Patient: Total time spent is greater than 50% in coordination of care (as documented) at patient's floor/unit and/or counseling patient: Coding Level of Care Code 92231 Subseq Hosp Care Lvl 2 Diagnoses Colonic mass K63.89 Abdominal pain, lower R10.30 Abdominal aortic aneurysm I71.4 Anemia D64.9 DVT prophylaxis Z29.9
[2019-09-11] MEDS: ENOXAPARIN INJ 40 MG/0.4 ML SYR SQ SCH (20:04)
[2019-09-11] MEDS ORDERED: QUETIAPINE FUMARATE 25 MG TABLET PO ONE (21:00)
[2019-09-11] MEDS ORDERED: MELATONIN 3 MG TAB PO SCH (21:00)
[2019-09-12] MEDS: SENNOSIDES 8.8 MG/5 ML UDC PO SCH (08:05)
[2019-09-12 09:56] LABS: Basophils # (auto) 0.03 K/uL (0-0.2); Basophils % (auto) 0.5 %; Eosinophils # (auto) 0.23 K/uL (0-0.5); Eosinophils % (auto) 3.6 %; Hematocrit (blood only) 34.5 % (42-52); Hemoglobin 11.2 g/dL (14.0-18.0); Immature Granulocytes # (auto) 0.03 K/uL (0.00-0.02); Immature Granulocytes % (auto) 0.5 %; Lymphocytes # (auto) 0.95 K/uL (1.2-3.4); Lymphocytes % (auto) 14.8 %; Mean Corpuscular Hemoglobin 27.9 pg (25-34); Mean Corpuscular Hgb Conc 32.5 g/dL (32-36); Mean Corpuscular Volume 85.8 fL (80-100); Mean Platelet Volume 11.3 fL (7.4-10.4); Monocytes # (auto) 0.63 K/uL (0.11-0.59); Monocytes % (auto) 9.8 %; Neutrophils # (auto) 4.55 K/uL (1.4-6.5); Neutrophils % (auto) 70.8 %; Platelet Count 248 K/uL (130-400); RDW Coefficient of Variation 15.6 % (11.5-14.5); Red Blood Count 4.02 M/uL (4.7-6.1); White Blood Count 6.42 K/uL (4.8-10.8)
[2019-09-12 10:31] LABS: BUN Creatinine Ratio 21.2 (10-20); Creatinine Clr Calc Pharmacy 61.4 ml/min; Est GFR (African American) 74.9; Est GFR (Non-African American) 64.6; Potassium 3.8 mmol/L (3.5-5.1)
[2019-09-12 10:34] LABS: Albumin Globulin Ratio 0.8 (0.9-2); Bilirubin,Total 0.6 mg/dl (0.2-1); Globulin 3.6 gm/dl (2.5-4.0); Total Protein 6.6 gm/dl (6.4-8.2)
--- NOTE | 2019-09-12 12:36 | Hospitalist Progress Note ---
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 The patient has had invasive to muscularis propria into the perirectal tissue though seen on biopsy Patient has NG tube removed and surgery is advancing diet discontinuation of antibiotics now that ileus is resolved ileus is an expected complication of care s/p colon resection discontinue PPN 09/10/2019 patient did have a subcutaneous infiltrate of his PPN he does have some discomfort to his left arm does not appear to be a phlebitis at this time pathology reveals adenocarcinoma, good margins, negative ln, g2 subtype, but did grow thru musularis propria will need outpatient follow-up with oncology (2) Abdominal pain, lower: now s/p resection and reanastamosis improving (3) Abdominal aortic aneurysm: will need Dr. Mason follow up appointment and also imaging CT/US to evaluate his abdominal aortic as mentioned below CT abdomen pelvis IMPRESSION: 1. Apparent high-grade luminal narrowing of the hepatic flexure is noted with soft tissue thickening suspicious for a mucosal neoplasm measuring up to 2.8 x 1.8 cm. Correlation with GI consultation and endoscopy is recommended. This results in dilation with moderate fecal retention of the terminal ileum, cecum and ascending colon. Enteric contrast progresses to the ileocecal valve excluding small bowel obstruction. 2. Wall thickening throughout the cecum and ascending colon with pericolonic stranding and trace free fluid of the pericolic gutter is likely reactive. A nonspecific colitis could appear similarly. 3. Dilated fluid-filled appendix is also likely secondary to the aforementioned colonic findings. Acute appendicitis is considered less likely. 4. Colonic diverticulosis without acute diverticulitis. 5. Fusiform aneurysmal dilation of the distal infrarenal abdominal aorta, 5.5 x 4.4 cm. (4) Anemia: Low normal MCV. Hgb 17.3 in 2018, pleasant 12 g range on presentation (5) DVT prophylaxis: Patient remains on heparin therapy Admission and Anticipated Discharge Date Admission Date: September 04, 2019 Results & Data Results & Data ([facility]) Vital Signs (Past 12 Hours) Vital Signs Temp Pulse Pulse Resp BP Pulse Ox 09/12/19 11:44 36.5 C 72 80 17 126/72 95 09/12/19 07:27 36.5 C 72 17 126/72 95 PG Care Time/CCT Total # of Minutes Spent Total Time Spent with Patient: Total time spent is greater than 50% in coordination of care (as documented) at patient's floor/unit and/or counseling patient: Coding Diagnoses Colonic mass K63.89 Abdominal pain, lower R10.30 Abdominal aortic aneurysm I71.4 Anemia D64.9 DVT prophylaxis Z29.9
--- NOTE | 2019-09-12 12:46 | Discharge Summary ---
Date of Service September 12, 2019 Admission HPI Per Admitting Provider Frank Kline is a 73 year old male who presents to the ER due to ongoing abdominal pain and concern for abdominal aortic aneurysm. Abdominal pain start on August 24 when he felt constipated. Abdominal pain worse in RLQ, cramping pain. Currently 5/10. This continued with no bowel movements for 2-3 days then his bought him Dulcolax which caused diarrhea and he has had this since after just one dose. His pain mildly improved. No melena or blood noticed. Diarrhea occurring 4-5 times a day. Last bowel movement this morning and is continuing to pass flatus. Associated hands feeling cold but no fever or chills. With these symptoms he saw his PCP (Dr Beebe) on . Sent for CT A/P with IV contrast which was concerning for possible appendicitis and abdominal aortic aneurysm. He was arranged follow up the same day with Dr Veras (vascular surgery) in [place] and after discussion he was advised to go to the ER in [place]. No notes available from this hospitalization but per patient and his they were admitted overnight, started on pantoprazole and discharged the follow day with advice to call vascular surgery for an appointment on Thursday regarding the AAA. His did this and the surgeon was still away and she was told that her probably wouldn't be seen till September anyway. Due to ongoing pain and diarrhea today his brought him to the ER here. In the ER here, repeat CT A/P with IV and oral contrast and with comparison films to his August 30 pictures was concerning for high-grade narrowing of the hepatic flexure with soft tissue thickening suspicious for a mucosal neoplasm measuring up to 2.8x1.8cm. Moderate fecal retention of the terminal ileum, cecum and ascending colon. Reactive wall thickening throughout the cecum and colon likely reactive. Results were discussed with the patient and his and aware of suspected colon cancer diagnosis. No prior colonoscopies. Principal Diagnosis Colonic mass Discharge Exam Constitutional WD/WN, vitals as above Respiratory normal respiratory effort, lungs clear to auscultation Cardiovascular RRR, no murmur, no edema Gastrointestinal (Abdomen) normal bowel sounds, soft, nontender, no hepatosplenomegaly Musculoskeletal no cyanosis or clubbing, extremities motor strength 5/5 Skin no rashes, warm and dry Neurologic moves all extremities and awake Psychiatric A+Ox3, euthymic affect Discharge Data Allergies Allergy/AdvReac Type Severity Reaction Status Date / Time No Known Allergies Allergy Unverified 04/20/17 08:45 Consultations 09/04/19 16:30 ED Decision to Admit Stat 09/04/19 16:33 Consult Gastroenterology Routine 09/04/19 18:08 Consult General Surgery Routine 09/06/19 09:21 Consult Vascular Surgery Routine Procedures Performed Operation Date: 09/05/19 08:30 Actual Procedures p Right Hemicolectomy(Right) - Codey Child MD, FACS Operation Date: 09/05/19 16:30 <No data on this case meets the specified criteria> Ordered Studies 09/04/19 11:59 CT abd pelvis oral and IV con Stat 09/04/19 23:06 CT abd pelvis wo con Urgent Hospital Course (1) Colonic mass: s/p 09/05/19 Right Hemicolectomy Surgeon: Codey Child 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 The patient has had invasive to muscularis propria into the perirectal tissue though seen on biopsy Tolerating diet Abx dc'd now that ileus is resolved - discontinue PPN 09/10/2019 Will follow up with Dr. Purcell's office after discharge for further oncology care (2) Abdominal pain, lower: now s/p resection and reanastamosis resolved (3) Abdominal aortic aneurysm: Found incidentally on CT scan: Fusiform aneurysmal dilation of the distal infrarenal abdominal aorta, 5.[address] Mason was consulted and will see patient in 6 weeks after discharge to allow time for abdominal surgery to heal. Their office will order further imaging patient may need before that time (4) Anemia: Low normal MCV. Stable hgb around 11 since 09/05, follow up with pcp (5) Elevated LFTs: AST, ALT 44 and 97. Recommend recheck with pcp to ensure resolution. Bili normal. (6) DVT prophylaxis: Heparin inpatient Total Time Total Time Spent Total Time Spent (In Minutes): greater than 30 minutes Discharge Plan Discharge Items Patient Disposition: Home - Home Health Services Reason For Visit: COLITIS, COLONIC MASS Discharge Diagnosis: colon cancer with obstruction Activity: Per Instructions section Activity Comment: light activity for 4 weeks Lifting: No more than 10 pounds Bathing Comment: may shower, no soaking in tubs Sexual Activity: When tolerated Exercise/Sports: Wait until after follow-up appointment Exercise Comment: light activity for 4 weeks Driving/Machine Use: Resume 3 days after discharge Non-emergency contact: Primary Care Provider and Surgeon Call non-emergency contact if: you have any medication questions, your symptoms worsen, your pain is not controlled, your pain is worsening, you have a fever, your temperature is above 101.5, your wound has increased redness, your wound has increased drainage and your wound pain has increased Follow-up/Referrals: Codey Child MD, FACS [Physician] - 09/15/19 10:15 am (Please, follow up at [facility] General Surgery Office with Dr. Child on September 14 at 10:15 am. *The office is located at [address] [facility] in [place]. If you need to change this appointment, call the office at [phone].) He Purcell DO [Physician] - (Please, follow up at [facility] with Dr. Purcell and his associates. *A nurse from this office will contact you with the appointment information. The Cancer Center is located in the rear of this hospital. You will park BEHIND the hospital in [address] and enter via [facility]. If you have any questions, call the office at [phone].) Jaden Beebe [Primary Care Provider] - 09/20/19 1:30 pm (Please, follow up with Dr. Beebe on ThursdaySeptember 19 at 1:30 pm. *If you need to change this appointment, call the office at [phone].) Mariano Mason MD [Physician] - (Please, follow up with Dr. Mason (vascular surgeon) for follow up regarding an abdominal aortic aneurysm. *A nurse from this office is will call you with appointment information. The office is located at [address] [place] [address] in [place], near the [employer] [facility]. If you have any questions, call the office at [phone].) Diet: Low Fiber Addtl Attending Provider Instructions: SPECIAL CARE INSTRUCTIONS: * Cover incisions and change daily for comfort/drainage. * Empty drain 2-3 times per day and record. * May use ibuprofen for pain as tolerated. * Expect some swelling and bruising. Call your doctor if: * Temperature above 101 degrees * Pain not relieved by pain medicine ordered * There is increased drainage or redness from any incision * You have any unanswered questions or concerns [phone]. FOLLOW UP VISIT: If not already scheduled, please call the office for a follow-up visit. for next week- [place] OFFICE PHONE NUMBER: Dr. Child Office 1) Colonic mass: You will need to follow up with Dr. Purcell from hematology/oncology as above. His office will reach out to you as above to schedule but please call the office if you do not hear from them this week. (2) Abdominal aortic aneurysm: You will need to follow up with Dr. Mason from vascular surgery in 6 weeks to discuss further care of the abdominal aneurysm found incidentally on your CT scan. His office will contact you as above but please reach out to his office if you do not hear from anyone over the next week or so. 3) Elevated LFTs Your liver function tests were very mildly elevated. Please discuss with your primary care provider as they may want to recheck this level to ensure resolution to normal level Pending Studies at Discharge: No Stand-Alone Forms: My [facility], Opioid Pain Management, Smoking Cessation Medications and DC Order Prescriptions: New hydrocodone-acetaminophen [Gilbert] 5-325 mg tablet 1 - 2 tab PO Q6H PRN (Reason: pain) Qty: 30 RF: 0 Continued multivitamin Tablet 1 tab PO QAM RF: 0 pantoprazole 40 mg tablet,delayed release (DR/EC) 40 mg PO QAM RF: 0 Discharge Orders: Discharge Order (Routine); Ordered 09/12/19 Ordered By: Codey Gilbert/Other Patient Handouts: Low-Fiber Diet, DVT Post Op Prevention, ED Aneur ysm Abdominal Aortic Stable Admission Data Admit Date/Time: 09/04/19 16:33 Attending Provider: Des Mathis Admit Provider: Ok Hancock Primary Care Provider: Jaden Beebe Other Providers: Corina Walker ; Codey Child ; Mariano Mason ; Des Mathis Other Interventions: Discharge Summary Assessment (RN) Last Done: 09/12/19 11:44 DC Date/Time DO NOT enter until pt leaves facility: 09/12/19 15:08 Supervising Physician Co-Signing Physician Notes I supervised Eloisa Ambriz NP on this patient's care. I examined the patient today independently of her. I discussed the plan of care with her with the plan being as written in her note except for any following changes/exceptions: None. In no pain today. Had 2 BMs per patient report. Anxious to go home. [facility] with [facility] this week for treatment options. Coding Level of Care Code D/C Day Management >30 mins Diagnoses Colonic mass K63.89 Abdominal pain, lower R10.30 Abdominal aortic aneurysm I71.4 Anemia D64.9 Elevated LFTs R79.89 DVT prophylaxis Z29.9
== END 2019-09-12 15:08 | disposition home health service (06) | DRG 329 ==
LOC: ED 11:17 → 3N 16:33 → SUATTDRO 16:33 → 3N 16:56 → 2S 22:30 → 3W 09-06 14:52

== ENCOUNTER 2019-10-26 05:26 | Inpatient (IN) ==
--- NOTE | 2019-10-20 09:51 | Anesthesiology Consultation ---
Date of Service October 20, 2019 Assessment & Plan (1) Encounter for pre-operative examination: Per nurse phone assessment on 10/17: Travel screen negative. No known COVID-19 positive contacts or current COVID-19 related symptoms. Patient scheduled for preop protocol COVID-19 testing 10/20 ([place]). Awaiting results. - S/P Right hemicolectomy: 09/05/19: Grade view 1, MAC#3, ETT 7.5 at [facility] Chart Review Chart Review: Acceptable Risk for Surgery (pending evaluation AM DOS) and Patient NOT seen in Pre Admission Testing History Surgery Operation Date: 10/26/19 07:15 Proposed Procedures p Percutaneous Endovascular Aneurysm Repair - Mariano Mason MD Height/Weight Height: 5 ft 7 in Weight: 90.718 kg Allergies Allergy/AdvReac Type Severity Reaction Status Date / Time latex Allergy Redness of Verified 10/18/19 14:13 Skin Medications Home Medications Medication Instructions Recorded Confirmed Last Taken multivitamin 1 tab PO QAM 09/04/19 10/18/19 09/03/19 Past Medical History Medical History (Updated 10/20/19 @ 09:44 by Meryl Garland) Anemia chronic, baseline 11-12 range per chart review Ascending aortic aneurysm Hearing deficit B/L PEREZ History of colon cancer History of skin cancer removed Past Family History Family History Brother Stomach cancer Other No family history of adverse response to anesthesia Past Surgical History Surgical History History of blepharoplasty History of cataract surgery History of laparotomy with extended right hemicolectomy and appendectomy -- 09/05/2019 [place] Social History Smoking Status: Former smoker Do You Dip or Chew Tobacco: No Smoking End Date: 40 years ago Hx Alcohol Use: No Hx Substance Use: No substance use type: does not use Testing Laboratory Results 09/12/19 WBC 6.42 H/H 11.2/34.5 PLATELETS 248 SODIUM 140 POTASSIUM 3.8 CHLORIDE 108 CO2 27 BUN 24 CREATININE 1.11 GLUCOSE 137 09/04/19 PT 10.7 PTT 23.9 INR 1.0 09/05/19 COVID TEST negative Electrocardiogram Date: 09/04/19 ST at 112bpm with occasional PAC's. RBBB. LAFB. Bifascicular block (bifascicular block dating back to 04/20/17 EKG in [facility]/patient with subsequent ECHO).* Possible lateral infarct, age undetermined. Patient subsequently had Right hemicolectomy 09/05/19 at [facility] without issue. Pulse 86 at subsequent general surgery office visit 09/15/19. At anesthesiologist discretion AM DOS if repeat EKG needed* Chest X-Ray Date: 09/07/19 Mild cardiomegaly. Slight chronic prominence of the pulmonary vasculature. Echocardiogram Date: 11/03/18 EF 55%. Grade I DD. Mild RVD. Physiologic GA. Enlarged ascending aorta. Stress Test Date: 05/05/18 Type: nuclear No evidence of myocardial ischemia or infarction on nuclear images. LVEF 59%. Stress EKG negative for ischemia. Other Testing Chest CTA: 10/07/19: Mild aneurysmal dilatation of the ascending thoracic aorta measuring up to 4.2 cm in diameter. Small nodular density within the bronchus intermedius. This is technically indeterminate but favors a small amount of mucoid material. Emphysema. CTA abdomen/pelvis: 10/07/19: 5.7 cm infrarenal abdominal aortic aneurysm ta pering at the level of the aortic bifurcation. Short segment proximal celiac artery dissection. No evidence of superior mesenteric celiac or renal artery stenosis. Postsurgical changes of a right hemicolectomy.
[2019-10-26] MEDS ORDERED: CEFAZOLIN 2000MG 2,000 MG/15 ML SYR IV SCH (06:00)
[2019-10-26] MEDS ORDERED: LR 15ML/HR IV SCH (06:00)
[2019-10-26] MEDS ORDERED: HEPARIN (PORCINE) 1000 UNIT/ML 10 ML (CATH LAB USE ONLY) ONE ×3 (07:05→10:21)
[2019-10-26] MEDS ORDERED: CEFAZOLIN 250 MG/ML 1 GM VIAL ONE (07:06)
[2019-10-26] MEDS ORDERED: GELATIN SPONGE SZ 100 ONE (07:06)
[2019-10-26] MEDS ORDERED: IODIXANOL (VISIPAQUE) 270 MG/ML 150ML ONE (07:11)
[2019-10-26] MEDS ORDERED: ROCURONIUM BROMIDE 10 MG/ML 5 ML VIAL IV ONE ×4 (07:11→08:45)
[2019-10-26] MEDS ORDERED: NEOSTIGMINE METHYLSULFATE 5 MG/5 ML SYR ONE (07:11)
[2019-10-26] MEDS ORDERED: HEPARIN SOD (PORCINE) 1000 UNIT/ML 10 ML VIAL ONE (07:11)
[2019-10-26] MEDS ORDERED: DEXAMETHASONE SOD INJ 4 MG/ML VIAL ONE (07:11)
[2019-10-26] MEDS ORDERED: GLYCOPYRROLATE 0.2 MG/ML VIAL ONE (07:11)
[2019-10-26] MEDS ORDERED: LIDOCAINE HCL 1% 20 ML VIAL ONE ×2 (07:11→07:18)
[2019-10-26] MEDS ORDERED: fentaNYL citrate 100 MCG/2 ML VIAL ONE ×2 (07:11)
[2019-10-26] MEDS ORDERED: LARYING-O-JET KIT (LTA) ONE (07:11)
[2019-10-26] MEDS ORDERED: ePHEDrine sulfate 50 MG/ML SYR ONE (07:11)
[2019-10-26] MEDS ORDERED: ONDANSETRON INJ 2 MG/ML 2 ML VIAL ONE (07:11)
[2019-10-26] MEDS ORDERED: THROMBIN FOR SOLN 20000 UNIT KIT ONE (07:11)
[2019-10-26] MEDS ORDERED: PROPOFOL IV EMULSION 10 MG/ML 20 ML VIAL IV ONE (07:11)
[2019-10-26] MEDS ORDERED: MIDAZOLAM HCL 1 MG/ML 2ML VIAL ONE (07:11)
[2019-10-26] MEDS ORDERED: PHENYLEPHRINE HCL 10 MG/ML VIAL ONE ×2 (07:11→08:45)
[2019-10-26] MEDS ORDERED: LIDOCAINE HCL 2% 2 ML VIAL/AMP(20MG/ML) INFIL ONE (07:11)
[2019-10-26] MEDS ORDERED: EPINEPHrine INJ 1 MG/ML AMP ONE (07:12)
[2019-10-26] MEDS ORDERED: BUPIVACAINE 0.5 % 5 MG/1 ML MPF 30ML VIAL ONE (07:12)
[2019-10-26] MEDS ORDERED: LIDOCAINE 2% JELLY 5 ML TUBE ONE (07:13)
[2019-10-26] MEDS ORDERED: LABETALOL HCL IV 5 MG/ML 20ML IV ONE (07:14)
--- NOTE | 2019-10-26 07:42 | History & Physical Report ---
Date of Service October 26, 2019 History of Present Illness Chief Complaint: AAA Primary Care Provider: Jaden Beebe * Final Report * October 17, 2019 Name: FRANK ESCOBAR [facility] Number: [id number] : 1945 Date of Service: 10/17/2019 Jaden Beebe MD [address] [place] [address] Beebe: Today, we had the pleasure of seeing Mr. Frank Escobar in our vascular surgery outpatient clinic here in [place]. As you know, Mr. Frank Escobar is a very pleasant 74-year-old male who recently underwent a right hemicolectomy for a diagnosis of adenocarcinoma. During workup for his colon cancer the patient was incidentally found to have abdominal aortic aneurysm. He presents to our office today for an initial visit to discuss his abdominal aortic aneurysm. The initial CT scan indicated that the aneurysm was 5.7 cm in diameter. Mr. Escobar has been recovering well since his operation in August. He has no complaints, had no further issues. He recently went for followup with his oncologist. At this visit he was reassured that he does not currently need any chemotherapy or radiation and will be following up the next several months, he has been recommended to follow up with vascular surgery for repair of his aneurysm. On review of systems today. The patient denies any chest pain, shortness of breath, abdominal pain, nausea, emesis, sore throat, change in taste or recent COVID contacts. PAST MEDICAL HISTORY: Adenocarcinoma of the colon. PAST SURGICAL HISTORY: Right-sided extended hemicolectomy and right hand surgery. MEDICATIONS: Daily multivitamin. ALLERGIES: No known drug allergies. SOCIAL HISTORY: The patient presents today with his who he lives with. He is a former smoker but quit over 20 years ago. He smoked approximately 1 pack per day for 20 years. He occasionally drinks alcohol and denies any other illicit drug use. 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 FAMILY HISTORY: The patient denies any bleeding or clotting disorders or complications to anesthesia in the family. PHYSICAL EXAMINATION: Heart rate 87, blood pressure in the left upper extremity 126/80 in the right upper extremity 136/76, oxygen saturation 97% on room air. In general, the patient is alert and well, in no apparent distress, sitting up and conversant. His extraocular movements are intact. His pupils are equal, round, reactive to light. He has no noted carotid bruits in his neck. His heart has a regular rate and rhythm. His lungs are clear to auscultation bilaterally. His abdomen is soft, slightly distended, nontender with a well- healing paramedian incision in the right side of his abdomen. He has palpable radial pulses, palpable femoral pulses palpable PT and DP pulses bilaterally. ASSESSMENT AND PLAN: Mr. Frank Escobar is a 74-year-old male status post open right extended hemicolectomy for adenocarcinoma who was incidentally noted to have a 5.7 cm AAA on preoperative workup. At this time, he does not appear to have any further required treatment for the colon cancer other than followup is now would be a good time for operative repair of his AAA. We discussed with him open and endovascular approaches and highly suggested the endovascular approach. He seemed agreeable to this. The patient admits that within the past year he has had a cardiac workup with an echo that was performed, which came back norm al. Additionally, he did well during this most recent operation. We will plan to offer Mr. Escobar endovascular repair for his AAA. We will have him scheduled at his earliest convenience. All the patient's questions were answered. Additionally, the questions and concerns of his who is also present were addressed. We appreciate the opportunity to participate in this patient's care. Please feel free to contact the vascular surgery service with any additional comments, questions or concerns. #[id number] I saw and evaluated the patient. Discussed with the resident and agree with the resident's findings and plan as documented in the resident's note. Signature Line Electronic Signature on File CC: Jaden Beebe MD [address] [place] [id number] * Jack Anthony MD Resident Division of General Surgery Electronically Reviewed/Signed by: MD Geovanny Barberigner Signature Dt/Tm: 10/18/2019 12:37 PM Director Game Francisco Javier Cho [facility] [place], [address] [place] [address] ROBERT /DENISE Result Type: .Outpt Ltr Date of Service: October 17, 2019 00:00 EDT Authorization Status: Final Subject: Outpatient Letter Author or Import Date: MD Anthony Brandon on October 17, 2019 13:43 EDT Verified By: MD Marlon, Mariano Espino on October 18, 2019 12:37 EDT Encounter info: [id number], [facility] SC07, Clinic, 10/17/2019 - 10/17/2019 Contributor system: [id number] Allergies Allergy/AdvReac Type Severity Reaction Status Date / Time latex Allergy Redness of Verified 10/26/19 05:48 Skin Home Medications Home Medications Medication Instructions Recorded Confirmed Type multivitamin 1 tab PO QAM 09/04/19 10/26/19 History Past Med/Surg History Medical History (Updated 10/26/19 @ 06:07 by Pina Tay, RN) Anemia chronic, baseline 11-12 range per chart review Ascending aortic aneurysm Hearing deficit B/L PEREZ History of colon cancer History of skin cancer removed History of trigger finger (Acute) right hand repaired Surgical History (Updated 10/26/19 @ 06:06 by Pina Tay, RN) History of blepharoplasty History of cataract surgery Family History Brother Stomach cancer Other No family history of adverse response to anesthesia Social History Smoking Status: Former smoker Age Quit Using Tobacco: 37; Smoking End Date: 40 years ago; Second Hand Exposure: No; Do You Dip or Chew Tobacco: No; Tobacco Cessation Education Requested by Patient: No Hx Alcohol Use: No Hx Substance Use: No Preferred Language: Upper Sorbian Communication Ability: Effective Furnace Helper Required: No Beliefs That Will Affect Care: None Current Living Situation: Spouse Feels Safe at Home: Yes Safety Concerns: Feels Safe At This Time Results & Data Vital Signs (Past 12 Hours) Vital Signs Temp Pulse Resp BP BP Pulse Ox 10/26/19 05:52 36.7 C 81 20 163/99 H 149/94 H 96
--- NOTE | 2019-10-26 07:43 | History & Physical Bridge Note ---
Date of Service October 26, 2019 History & Physical Bridge Note Patient for PEVAR of his AAA today. I have discussed the risks options and benefits of the procedure with the patient. The patient understands the risks options and benefits and agrees to the procedure. I have examined the patient, reviewed the History & Physical and in the interval since the performance of the History & Physical I have noted the following changes of clinical significance: no changes noted
[2019-10-26] MEDS ORDERED: LABETALOL HCL IV 5 MG/ML 20ML IV PRN (08:44)
[2019-10-26] MEDS ORDERED: HYDROmorphone INJ 1 MG/ML SYRINGE IV PRN (08:44)
[2019-10-26] MEDS ORDERED: ONDANSETRON INJ 2 MG/ML 2 ML VIAL IV PRN ×2 (08:44→09:44)
[2019-10-26] MEDS ORDERED: fentaNYL citrate 100 MCG/2 ML VIAL IV PRN (08:44)
[2019-10-26] MEDS ORDERED: ATROPINE SULFATE 0.1 MG/ML 10ML SYR IV PRN (08:44)
[2019-10-26] MEDS ORDERED: ePHEDrine sulfate 50 MG/ML AMP IV PRN (08:44)
[2019-10-26] MEDS ORDERED: VISIPAQUE IV ONE (09:35)
[2019-10-26] MEDS ORDERED: LIDOCAINE 2% JELLY 5 ML TUBE EXT ONE (09:38)
--- NOTE | 2019-10-26 09:42 | Procedure Note ---
Angiogram Post Procedure Fluoroscopy Time (minutes): 12.1 Radiation (mGy): 322 Contrast: 110cc Post Operative Report Pre & Post Diagnosis Operation Date: 10/26/19 07:30 Pre-Op Diagnosis: Abdominal Aortic Aneurysm Post-Op Diagnosis: Abdominal Aortic Aneurysm I identified the patient and participated in the time-out.: Yes Procedure Operation Date: 10/26/19 07:30 Actual Procedures p Percutaneous Endovascular Aneurysm Repair, Percutaneous Approach - Mariano Mason MD Surgeon Mariano Mason MD Spice Grinder Jayne Castlelanos MD Estimated Blood Loss 30 Findings Consistent with Post-Op Diagnosis Infrarenal abdominal aortic aneurysm, right common iliac artery aneurysm Specimens None Anesthesia Type General Complications none Disposition Accompanied Patient To Recovery: No Disposition: Recovery Room Indications Asymptomatic infrarenal abdominal aortic aneurysm >5cm Description of Procedure The patient was taken to the operating suite and placed in the supine position. The patient's identity and the surgical site were verified. The patient's lower abdomen and bilateral groins were prepped and draped in the usual standard fashion. A timeout was performed, including confirming the identity of the patient, the surgical site, and the surgical procedure. Sequentially and using ultrasound guidance the right then the left common femoral arteries were accessed with a needle. They were both found to be patent by USN. A J-wire was advanced through the needle. The needle was removed and a 5F sheath was placed. Location of access in the common femoral arteries was confirmed with hand injections. The sheath was removed and two perclose devices were inserted into each access site for pre-closure. Then, an 8F sheath was placed in each groin. The patient was systemically heparinized with 7,000u intravenous heparin. An angled glidewire was advanced up through the right groin, and a Kumpke catheter was advanced over wire. The glidewire was removed and replaced with a Agrawal wire. Over the agrawal wire, a 12F dilator was passed, then the 18F sheath for device delivery was advanced into the infrarenal abdominal aorta. The main body of the device was advanced into the infrarenal abdominal aorta through the 18F sheath. On the left groin, an angled glidewire was advanced, then a Kumpke catheter. The glidewire was removed and exchanged for a Agrawal wire. The kumpke catheter was removed and the 12F sheath was advanced into the infrarenal abdominal aorta on the left side. A pigtail catheter was then advanced up through the sheath on the left. Using power injection an aortogram was obtained which revealed an infrarenal abd ominal aortic aneurysm. On the left, consistent with pre-operative imaging, there was an accessory renal artery which was small. This arose from the uppermost aspect of the aneurysm sac and thus we would not be able to get adequate seal without covering the left accessory renal artery. The 18F sheath was pulled back and the main body of the device was positioned below the left renal artery. The main body of the device was deployed. Angiogram revealed that the stent was in good position and main bilateral renal arteries were perfused. From the left groin, an angled glidewire and Kumpke catheter were used to cannulate the contralateral gate. After confirming position within the gate with hand injection, we turned our attention back to the right groin. We performed hand injection to identify the location of the iliac bifurcation and ensure correct positioning to deploy above the iliac bifurcation so-as not to cover the right hypogastric artery. The right limb was deployed, and hand injection following deployment confirmed patency of the hypogastric. Turning our attention back to the left groin, a Agrawal wire was advanced through the Kumpke catheter. Over the wire the left graft limb was advanced. The radiopaque markers at the gate of the device were aligned. We performed hand injection to identify the location of the iliac bifurcation and ensure correct positioning to deploy above the iliac bifurcation so-as not to cover the left hypogastric artery. The left limb was deployed, and hand injection following deployment confirmed patency of the hypogastric. A Q50 balloon was then advanced on each side and inflated in order to ensure graft apposition along the graft and each limb. A completion angiogram was performed which demonstrated good apposition of the graft. No type 1 endoleaks were identified. The main renal arteries were patent bilaterally. The hypogastric arteries were patent bilaterally. There was a type 2 endoleak which appeared to arise from a branch off the right hypogastric artery. The catheters and sheaths were removed. The perclose devices were deployed in each groin. Manual pressure was then held in each groin for 10 minutes. Hemostasis was obtained. The patient tolerated the procedure well and without immediate complication. At the conclusion of the procedure DP and PT signals were present bilaterally. The patient was taken to the recovery room in satisfactory condition. Dr. Mason was present and scrubbed for the entire procedure. I attest to the content of the Intraoperative Record and any orders documented therein. Any exceptions are noted below.
[2019-10-26] MEDS ORDERED: OXYCODONE/ACETAMINOPHEN 5mg/325mg TAB PO PRN (09:44)
[2019-10-26] MEDS ORDERED: MoRPHine SULFATE 4 MG/ML 1 ML CARP\\VIAL IV PRN (09:44)
--- NOTE | 2019-10-26 09:44 | Procedure Note ---
Post Operative Report Pre & Post Diagnosis Operation Date: 10/26/19 07:30 Pre-Op Diagnosis: Abdominal Aortic Aneurysm Post-Op Diagnosis: Abdominal Aortic Aneurysm I identified the patient and participated in the time-out.: Yes Procedure Operation Date: 10/26/19 07:30 Actual Procedures p Percutaneous Endovascular Aneurysm Repair, Percutaneous Approach - Mariano Mason MD Surgeon Mariano Mason [employer] Attendance Secretary Jayne Castellanos MD Estimated Blood Loss 30 Findings Consistent with Post-Op Diagnosis Infrarenal abdominal aortic aneurysm, right common iliac artery aneurysm Specimens None Drains None Anesthesia Type General Complications none Disposition Accompanied Patient To Recovery: Yes Disposition: Recovery Room Indications Asymptomatic infrarenal abdominal aortic aneurysm I attest to the content of the Intraoperative Record and any orders documented therein. Any exceptions are noted below.
[2019-10-26] MEDS ORDERED: ICU PROTOCOL FOR HYPERGLYCEMIA PRN (09:48)
--- NOTE | 2019-10-26 09:51 | Post Operative Brief Note ---
Immediate Post Op Note v1 Date of Surgery October 26, 2019 Pre & Post Diagnosis Operation Date: 10/26/19 07:30 Pre-Op Diagnosis: Abdominal Aortic Aneurysm Post-Op Diagnosis: Abdominal Aortic Aneurysm I identified the patient and participated in the time-out.: Yes Procedure Operation Date: 10/26/19 07:30 Actual Procedures p Percutaneous Endovascular Aneurysm Repair, Percutaneous Approach - Mariano Mason MD Surgeon Mariano Mason MD Power Project Manager Jayne Castellanos MD Estimated Blood Loss 30 Findings Consistent with Post-Op Diagnosis Drains Wise Catheter Anesthesia Type General Complications none Disposition Accompanied Patient To Recovery: No Disposition: Recovery Room
[2019-10-26] MEDS ORDERED: MoRPHine SULFATE 2 MG/ML CARP IV PRN (09:54)
[2019-10-26 10:22] LABS: Hematocrit (blood only) 33.1 % (42-52); Hemoglobin 10.7 g/dL (14.0-18.0)
--- NOTE | 2019-10-26 10:41 | Anesthesiology Progress Note ---
Date of Service October 26, 2019 Anesthesia Post Procedure Vital Signs Vital Signs: Temp Pulse Pulse Resp BP BP BP 10/26/19 10:30 70 14 149/79 H 149/79 H 10/26/19 10:20 70 17 124/69 124/69 10/26/19 10:10 76 17 164/86 H 160/102 H 10/26/19 10:03 36.4 C L 71 18 128/80 10/26/19 05:52 36.7 C 81 20 163/99 H 149/94 H Pulse Ox 10/26/19 10:30 95 10/26/19 10:20 93 10/26/19 10:10 93 10/26/19 10:03 95 10/26/19 05:52 96 Transfer of Care Handoff Completed per policy Notes Mental Status: alert / awake / arousable and participated in evaluation Patient Amnestic to Procedure: Yes Nausea / Vomiting: adequately controlled Pain: adequately controlled Airway Patency, RR, SpO2: stable & adequate BP & HR: stable & adequate Hydration State: stable & adequate Anesthetic Complications: no major complications apparent and Pt Satisfied with anesthetic care
[2019-10-26] MEDS ORDERED: ICU ELECTROLYTE REPLACEMENT PROTOCOL PRN (10:49)
--- NOTE | 2019-10-26 10:57 | Critical Care Consultation ---
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 Neuro - Sedation: none Analgesia: morphine -> 1mg for pain rating of 7, 2mg for pain rating of 8, 3mg for pain rating of 9, 4mg for pain rating of 10. Oxycodone -> 1 tab for pain rating 3,4, 2 tabs for pain rating 5,6. - No current neurologic concerns. Cardiac - Abdominal aortic aneurysm s/p repair: - Patient tolerated PEVAR well and without immediate complications. - Will remain in ICU for 24 hours to monitor for post-op complications and for BP monitoring. - Goal systolic BP 100-180mmHg. - Frequent BP checks. Respiratory - History of Smoking Abuse: - 20 year pack history with chronic cough, however no diagnosis of COPD/emphysema. - Currently on 4LNC post-operatively and saturating well. - Continue to wean as tolerated and monitor for hypoxia; patient likely has underlying lung disease at baseline given smoking history. GI - - Heart Healthy diet. - Pantoprazole 40mg PO daily for GI prophylaxis while in ICU. RENAL/LYTES - - No history of renal disease. - Patient did not have BMP prior to surgery this AM, however did not have electrolyte derangement nor signs of CKD on pre-operative labwork on 09/11. - BMP tomorrow AM and replace lytes as needed. - - No active concerns at this time. - Strict Is/Os. ENDO - Elevated glucose: - Patient without history of DM2. - POC BSG today 133, fasting. Defer to primary team/PCP for risk modification. HEME - Normocytic anemia: - Noted on labwork during prior admission on 09/11, normocytic. - Stable H&H. - CBC AM. - Defer to primary care provider regarding new diagnosis of normocytic anemia. ID - - No concerns for infection at this time. - CBC AM. INTEGUMENTARY - - Frequent monitoring of vascular access, surgical sites for bleeding and signs of infection. LINES/IV ACCESS - - PIVs intact. DVT PROPHYLAXIS - - Patient is recently post-op. - SCDs at this time. Thank you for allowing us to be part of this patient's care. Please refer to Dr. Rodriguez's documentation for any further recommendations. (2) S/P AAA (abdominal aortic aneurysm) repair: (3) H/O colectomy: (4) Elevated LFTs: (5) Colonic mass: Supervising Physician Co-Signing Physician Notes Dr. Trinidad was resident physician during care of patient. I separately evaluated patient for mark portions of the history and the exam. I was present during the critical portion of medical decision making, and I discussed the case with the resident. I generally agree with the findings and plan. History of Present Illness Reason for Consultation: post-op PEVAR Requesting Physician: Mariano Mason MD Attending Physician: Mariano Mason MD History of Present Illness 74 yo M PMHx colonic adenocarcinoma s/p R hemicolectomy, smoking abuse 20 pack year history with cessation 20 years ago who during colectomy pre-operative testing was found to have a 5.7cm AAA. PEVAR performed this AM by Dr. Mason, which the patient tolerated well and without immediate complications. Patient was transferred to ICU for continued monitoring following vascular surgery. On my interview patient is tired-appearing but alert and oriented, with no complaints of pain, SOB, CP, palpitations, dizziness or headache, recent fevers or chills. Only complaint is the desire to sit up to "spit out the gunk from all those years of smoking". Allergies Allergy/AdvReac Type Severity Reaction Status Date / Time latex Allergy Redness of Verified 10/26/19 05:48 Skin Home Medications Home Medications Medication Instructions Recorded Confirmed Type multivitamin 1 tab PO QAM 09/04/19 10/26/19 History oxycodone-acetaminophen 1 tab PO Q6H PRN #20 tab 10/27/19 Rx Patient History Medical History Anemia chronic, baseline 11-12 range per chart review Ascending aortic aneurysm Hearing deficit B/L PEREZ History of colon cancer History of skin cancer removed History of trigger finger (Acute) right hand repaired Surgical History History of blepharoplasty History of cataract surgery Family History Brother Stomach cancer Other No family history of adverse response to anesthesia Social History Smoking Status: Former smoker Age Quit Using Tobacco: 37; Second Hand Exposure: No; Hx Alcohol Use: No Hx Substance Use: No Preferred Language: Albanian Communication Ability: Effective Muck Farmer Required: No Beliefs That Will Affect Care: None marital status: Current Living Situation: Spouse Feels Safe at Home: Yes Review of Systems Review of Systems: All systems reviewed & are unremarkable except as noted in Subjective Respiratory: + cough (chronic for several years, productive, intermittent) Cardiovascular: no chest pain, no palpitations and no edema Gastrointestinal: no abdominal pain, no nausea, no vomiting, no constipation and no diarrhea/loose stools Physical Exam Constitutional: WD/WN, vitals as above Eyes: PERRL, conjunctivae normal, anicteric sclerae ENMT: external ear and nose normal, oropharynx normal Neck: normal visual inspection Respiratory: normal respiratory effort, lungs clear to auscultation Cardiovascular: RRR, no murmur, no edema Vessels: posterior tibial pulses present and dorsalis pedis pulses present Extremities: normal capillary refill Gastrointestinal (Abdomen): normal bowel sounds, soft, nontender, no hepatosplenomegaly Musculoskeletal: Extremities: no cyanosis and no clubbing Skin: no rashes, warm and dry Neurologic: moves all extremities; no focal motor deficits Speech / Cognition: normal speech Motor/Sensory: no tremor Psychiatric: A+Ox3, euthymic affect Results & Data Results & Data ([facility]) Vital Signs (Past 12 Hours) Vital Signs Temp Pulse Pulse Resp BP BP BP 10/26/19 10:40 36.0 C L 67 12 139/68 136/74 10/26/19 10:30 70 14 149/79 H 149/79 H 10/26/19 10:20 70 17 124/69 124/69 10/26/19 10:10 76 17 164/86 H 160/102 H 10/26/19 10:03 36.4 C L 71 18 128/80 10/26/19 05:52 36.7 C 81 20 163/99 H 149/94 H Pulse Ox 10/26/19 10:40 94 10/26/19 10:30 95 10/26/19 10:20 93 10/26/19 10:10 93 10/26/19 10:03 95 10/26/19 05:52 96 Resident Activity Tracking Resident Involvement: Resident Care Provided Care Provided: Adult Hospital Medicine
[2019-10-26] MEDS ORDERED: D5W AND 1/2NSS 1,000 ML IV SCH (11:15)
[2019-10-26] MEDS ORDERED: MAGNESIUM HYDROXIDE SUSP 30 ML UDC PO PRN (11:27)
[2019-10-26] MEDS ORDERED: POLYETHYLENE (MIRALAX) 17 GM PACK PO PRN (11:27)
[2019-10-26] MEDS: CEFAZOLIN 2000MG 2,000 MG/15 ML SYR IV SCH (16:12)
[2019-10-26] MEDS ORDERED: Nursing to Pharmacy Communication SCH (17:15)
[2019-10-27] MEDS: CEFAZOLIN 2000MG 2,000 MG/15 ML SYR IV SCH (00:37)
[2019-10-27 04:30] LABS: Hematocrit (blood only) 30.8 % (42-52); Hemoglobin 10.1 g/dL (14.0-18.0); Immature Granulocytes # (auto) 0.01 K/uL (0.00-0.02); Immature Granulocytes % (auto) 0.1 %; Lymphocytes # (auto) 0.86 K/uL (1.2-3.4); Lymphocytes % (auto) 8.3 %; Mean Corpuscular Hemoglobin 27.1 pg (25-34); Mean Corpuscular Hgb Conc 32.8 g/dL (32-36); Mean Corpuscular Volume 82.6 fL (80-100); Mean Platelet Volume 10.7 fL (7.4-10.4); Monocytes # (auto) 1.04 K/uL (0.11-0.59); Neutrophils # (auto) 8.49 K/uL (1.4-6.5); Neutrophils % (auto) 81.6 %; Platelet Count 199 K/uL (130-400); RDW Standard Deviation 48.5 fL (36.4-46.3); Red Blood Count 3.73 M/uL (4.7-6.1)
[2019-10-27 04:50] LABS: Calcium 8.2 mg/dl (8.5-10.1); Est GFR (African American) 70.5; Est GFR (Non-African American) 60.8; Magnesium 2.3 mg/dl (1.8-2.4); Phosphorus 2.9 mg/dl (2.5-4.9); Potassium 4.1 mmol/L (3.5-5.1)
--- NOTE | 2019-10-27 06:24 | Critical Care Progress Note ---
Date of Service October 27, 2019 Assessment & Plan (1) Abdominal aortic aneurysm: Reason Critically Ill: 74 yo M PMHx significant for adenocarcinoma of the colon s/p R hemicolectomy who presented for PEVAR and who was transferred to ICU from PACU for close monitoring post-op. Neuro - Sedation: none Analgesia: morphine -> 1mg for pain rating of 7, 2mg for pain rating of 8, 3mg for pain rating of 9, 4mg for pain rating of 10. Oxycodone -> 1 tab for pain rating 3,4, 2 tabs for pain rating 5,6. - No current neurologic concerns. Cardiac - Abdominal aortic aneurysm s/p repair: - Patient tolerated PEVAR well and without immediate complications. - Without acute events while being monitored in ICU for 24 hours for post-op complications and for BP monitoring. - Goal systolic BP 100-180mmHg. Respiratory - History of Smoking Abuse: - 20 year pack history with chronic cough, however no diagnosis of COPD/emphysema. - Saturating well this AM on 2LNC. - Continue to wean as tolerated and monitor for hypoxia; patient likely has underlying lung disease at baseline given smoking history. GI - - Heart Healthy diet. - Pantoprazole 40mg PO daily for GI prophylaxis while in ICU. RENAL/LYTES - - No history of renal disease. - No electrolyte derangement on BMP this AM. - Replace lytes as needed while admitted. - - No active concerns at this time. - Strict Is/Os. ENDO - Elevated glucose: - Patient without history of DM2. - POC BSG continue to be elevated in the 130s. No Hgb A1c on file. Defer to primary team/PCP for risk modification. HEME - Normocytic anemia: - Noted on labwork during prior admission on 09/11, normocytic. - Stable H&H with Hgb 10.1 this AM. - Defer to primary care provider regarding new diagnosis of normocytic anemia. ID - - No concerns for infection at this time. INTEGUMENTARY - - Frequent monitoring of vascular access, surgical sites for bleeding and signs of infection. LINES/IV ACCESS - - PIVs and A-line intact. DVT PROPHYLAXIS - - Patient is recently post-op. - SCDs at this time. Patient for likely downgrade vs. discharge later today by primary team. Thank you for allowing us to be part of this patient's care. Please refer to Dr. Rodriguez's documentation for any further recommendations. (2) S/P AAA (abdominal aortic aneurysm) repair: (3) H/O colectomy: (4) Elevated LFTs: (5) Colonic mass: Admission and Anticipated Discharge Date Admission Date: October 26, 2019 Supervising Physician Co-Signing Physician Notes Dr. Trinidad was resident physician during care of patient. I separately evaluated patient for mark portions of the history and the exam. I was present during the critical portion of medical decision making, and I discussed the case with the resident. I generally agree with the findings and plan. Anticipate discharge by vascular service later today. Subjective Patient without acute events overnight. Feeling well and without medical complaints this AM. Desires to go home, and to get out of bed. Denies SOB or CP, palpitations, fevers or chills, nausea or vomiting, diarrhea or constipation, headache or dizziness. Review of Systems Review of Systems: All systems reviewed & are unremarkable except as noted in Subjective Physical Exam Constitutional: WD/WN, vitals as above Eyes: PERRL, conjunctivae normal, anicteric sclerae ENMT: external ear and nose normal, oropharynx normal Neck: normal visual inspection Respiratory: normal respiratory effort, lungs clear to auscultation Cardiovascular: RRR, no murmur, no edema Vessels: posterior tibial pulses present (palpable, symmetric) and dorsalis pedis pulses present (palpable, symmetric) Extremities: normal capillary refill Gastrointestinal (Abdomen): normal bowel sounds, soft, nontender, no hepatosplenomegaly Musculoskeletal: Extremities: no cyanosis and no clubbing Skin: no rashes, warm and dry Femoral dressing C/D/I, no hematoma Neurologic: moves all extremities; no focal motor deficits Speech / Cognition: normal speech Motor/Sensory: no tremor Psychiatric: A+Ox3, euthymic affect Results & Data Results & Data ([facility]) Vital Signs (Past 12 Hours) Vital Signs Temp Pulse Resp BP Pulse Ox 10/27/19 00:36 69 13 115/59 L 94 10/27/19 00:21 71 11 L 113/64 95 10/27/19 00:06 73 9 L 108/59 L 96 10/27/19 00:00 36.5 C 78 14 94 10/26/19 23:51 83 8 L 99/66 L 93 10/26/19 23:36 77 14 117/60 93 10/26/19 23:21 78 13 114/53 L 94 10/26/19 23:06 82 8 L 121/63 92 10/26/19 23:00 81 20 94 10/26/19 22:51 70 7 L 107/67 93 10/26/19 22:36 84 6 L 114/62 92 10/26/19 22:21 72 3 L 112/58 L 92 10/26/19 22:06 87 12 114/53 L 93 10/26/19 22:00 78 1 L 93 10/26/19 21:51 77 12 121/66 94 10/26/19 21:36 74 6 L 121/68 93 10/26/19 21:21 81 17 115/66 93 10/26/19 21:06 81 11 L 124/66 95 10/26/19 21:00 73 7 L 93 10/26/19 20:51 75 11 L 117/64 96 10/26/19 20:37 71 13 94 10/26/19 20:36 73 15 98/68 L 94 10/26/19 20:21 73 13 112/61 95 10/26/19 20:06 74 15 116/65 94 10/26/19 20:00 36.6 C 75 21 94 10/26/19 19:51 80 9 L 116/63 94 10/26/19 19:36 69 8 L 105/58 L 94 10/26/19 19:21 75 8 L 109/60 94 10/26/19 19:06 69 12 110/66 95 10/26/19 19:00 81 8 L 97 10/26/19 18:51 64 12 107/57 L 96 10/26/19 18:36 73 11 L 100/59 L 96 10/26/19 18:22 75 14 96 10/26/19 18:21 78 16 117/64 97 Resident Activity Tracking Resident Involvement: Resident Care Provided Care Provided: Adult Hospital Medicine
[2019-10-27] MEDS ORDERED: PANTOprazole 40 MG TAB PO SCH (09:00)
--- NOTE | 2019-10-27 13:35 | Billing Data ---
Date of Service October 27, 2019 Coding Level of Care Code 83716 Subseq Hosp Care Lvl 1
--- NOTE | 2019-10-27 16:15 | Surgery Progress Note ---
Date of Service October 27, 2019 Assessment & Plan (1) S/P AAA (abdominal aortic aneurysm) repair: Pt doing well post op from PEVAR. D/C home today. Will see in office in 2 weeks. Subjective 74 yo m POD #[address] Mason, seen in f/u today. Pt states feeling well. Denies any complaints. Review of Systems Review of Systems: All systems reviewed & are unremarkable except as noted in HPI & below Physical Exam Constitutional: WD/WN, vitals as above Respiratory: normal respiratory effort, lungs clear to auscultation Cardiovascular: RRR, no murmur, no edema Vessels: femoral pulses present (punctures C/D/I, mild tender and edema), posterior tibial pulses present, dorsalis pedis pulses present, brachial pulses present and radial pulses present; + abnormal peripheral pulses Gastrointestinal (Abdomen): normal bowel sounds, soft, nontender, no hepatosplenomegaly Musculoskeletal: no cyanosis or clubbing, extremities motor strength 5/5 Skin: no rashes, warm and dry Neurologic: moves all extremities Psychiatric: A+Ox3, euthymic affect Results & Data Vital Signs (Past 12 Hours) Vital Signs Temp Pulse Resp BP Pulse Ox 10/27/19 14:00 79 15 92 10/27/19 13:00 91 H 17 95 10/27/19 12:00 81 17 93 10/27/19 11:07 72 10 L 122/71 91 10/27/19 11:00 74 15 91 10/27/19 10:53 70 15 92 10/27/19 10:52 71 13 142/76 H 93 10/27/19 10:37 72 16 116/68 91 10/27/19 10:22 75 15 126/67 91 10/27/19 10:07 74 15 128/67 91 10/27/19 10:00 76 14 90 10/27/19 09:52 72 19 109/62 91 10/27/19 09:37 75 17 119/64 92 10/27/19 09:22 77 15 116/72 92 10/27/19 09:07 80 19 111/66 91 10/27/19 09:00 78 19 93 10/27/19 08:52 77 14 108/60 91 10/27/19 08:37 73 21 114/60 91 10/27/19 08:22 73 17 115/61 92 20 08:07 77 20 113/58 L 91 08/0620 08:00 71 13 91 08/0620 07:52 36.7 C 68 14 107/59 L 90 06 07:37 77 15 118/68 90 [id number] 07:22 67 12 116/57 L 93 08/06 07:07 69 12 114/63 94 06 07:00 77 17 94 10/27/19 06:52 72 13 115/67 92 10/27/19 06:38 78 18 94 10/27/19 06:37 80 19 131/79 94 080620 06:21 76 14 125/67 93 08/0620 06:07 61 7 L 115/69 94 0806 06:00 69 12 95 0806 05:51 71 19 130/70 94 0620 05:36 71 10 L 127/69 94 0620 05:21 74 16 117/72 94 06 05:06 72 20 118/67 94 06 05:00 75 15 93 08/06/20 04:51 73 16 119/69 93 08/06/20 04:36 75 19 126/74 94 08/06/20 04:21 76 13 119/67 94
--- NOTE | 2019-10-28 10:00 | Discharge Summary ---
Date of Service October 28, 2019 Admission HPI Per Admitting Provider * Final Report * October 17, 2019 Name: FRANK ESCOBAR [facility] Number: [id number] : 1945 Date of Service: 10/17/2019 Jaden Beebe MD [address] [place] [address] Beebe: Today, we had the pleasure of seeing Mr. Frank Escobar in our vascular surgery outpatient clinic here in [place]. As you know, Mr. Frank Escobar is a very pleasant 74-year-old male who recently underwent a right hemicolectomy for a diagnosis of adenocarcinoma. During workup for his colon cancer the patient was incidentally found to have abdominal aortic aneurysm. He presents to our office today for an initial visit to discuss his abdominal aortic aneurysm. The initial CT scan indicated that the aneurysm was 5.7 cm in diameter. Mr. Escobar has been recovering well since his operation in August. He has no complaints, had no further issues. He recently went for followup with his oncologist. At this visit he was reassured that he does not currently need any chemotherapy or radiation and will be following up the next several months, he has been recommended to follow up with vascular surgery for repair of his aneurysm. On review of systems today. The patient denies any chest pain, shortness of breath, abdominal pain, nausea, emesis, sore throat, change in taste or recent COVID contacts. PAST MEDICAL HISTORY: Adenocarcinoma of the colon. PAST SURGICAL HISTORY: Right-sided extended hemicolectomy and right hand surgery. MEDICATIONS: Daily multivitamin. ALLERGIES: No known drug allergies. SOCIAL HISTORY: The patient presents today with his who he lives with. He is a former smoker but quit over 20 years ago. He smoked approximately 1 pack per day for 20 years. He occasionally drinks alcohol and denies any other illicit drug use. 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 FAMILY HISTORY: The patient denies any bleeding or clotting disorders or complications to anesthesia in the family. PHYSICAL EXAMINATION: Heart rate 87, blood pressure in the left upper extremity 126/80 in the right upper extremity 136/76, oxygen saturation 97% on room air. In general, the patient is alert and well, in no apparent distress, sitting up and conversant. His extraocular movements are intact. His pupils are equal, round, reactive to light. He has no noted carotid bruits in his neck. His heart has a regular rate and rhythm. His lungs are clear to auscultation bilaterally. His abdomen is soft, slightly distended, nontender with a well- healing paramedian incision in the right side of his abdomen. He has palpable radial pulses, palpable femoral pulses palpable PT and DP pulses bilaterally. ASSESSMENT AND PLAN: Mr. Frank Escobar is a 74-year-old male status post open right extended hemicolectomy for adenocarcinoma who was incidentally noted to h ave a 5.7 cm AAA on preoperative workup. At this time, he does not appear to have any further required treatment for the colon cancer other than followup is now would be a good time for operative repair of his AAA. We discussed with him open and endovascular approaches and highly suggested the endovascular approach. He seemed agreeable to this. The patient admits that within the past year he h as had a cardiac workup with an echo that was performed, which came back normal. Additionally, he did well during this most recent operation. We will plan to offer Mr. Escobar endovascular repair for his AAA. We will have him scheduled at his earliest convenience. All the patient's questions were answered. Additionally, the questions and concerns of his who is also present were addressed. We appreciate the opportunity to participate in this patient's care. Please feel free to contact the vascular surgery service with any additional comments, questions or concerns. #[id number] I saw and evaluated the patient. Discussed with the resident and agree with the resident's findings and plan as documented in the resident's note. Signature Line Electronic Signature on File CC: Jaden Beebe MD [address] [place] [id number] * Jack Anthony MD Resident Division of General Surgery Electronically Reviewed/Signed by: MD Guillermina Barber Signature Dt/Tm: 10/18/2019 12:37 PM Armature Balancer Francisco Javier Cho [facility] [place], [address] [place] [address] /DENISE Result Type: .Outpt Ltr Date of Service: October 17, 2019 00:00 EDT Authorization Status: Final Subject: Outpatient Letter Author or Import Date: MD Anthony Brandon on October 17, 2019 13:43 EDT Verified By: MD Mason Eugene J on October 18, 2019 12:37 EDT Encounter info: [id number], [facility] SC07, Clinic, 10/17/2019 - 10/17/2019 Contributor system: [id number] Admission Exam Per Admitting Provider PHYSICAL EXAMINATION: Heart rate 87, blood pressure in the left upper extremity 126/80 in the right upper extremity 136/76, oxygen saturation 97% on room air. In general, the patient is alert and well, in no apparent distress, sitting up and conversant. His extraocular movements are intact. His pupils are equal, round, reactive to light. He has no noted carotid bruits in his neck. His heart has a regular rate and rhythm. His lungs are clear to auscultation bilaterally. His abdomen is soft, slightly distended, nontender with a well- healing paramedian incision in the right side of his abdomen. He has palpable radial pulses, palpable femoral pulses palpable PT and DP pulses bilaterally. Principal Diagnosis 1. s/p PEVAR 2. AAA Discharge Exam Constitutional WD/WN, vitals as above Respiratory normal respiratory effort, lungs clear to auscultation Cardiovascular RRR, no murmur, no edema Vessels: femoral pulses present (punctures C/D/I, mild tender and edema), posterior tibial pulses present, dorsalis pedis pulses present, brachial pulses present and radial pulses present; + abnormal peripheral pulses Gastrointestinal (Abdomen) normal bowel sounds, soft, nontender, no hepatosplenomegaly Musculoskeletal no cyanosis or clubbing, extremities motor strength 5/5 Skin no rashes, warm and dry Neurologic moves all extremities Psychiatric A+Ox3, euthymic affect Discharge Data Allergies Allergy/AdvReac Type Severity Reaction Status Date / Time latex Allergy Redness of Verified 10/26/19 05:48 Skin Consultations 10/26/19 09:49 Consult Case Management - Discharge Planning Routine Consult Glue Drier Operator Routine Procedures Performed Operation Date: 10/26/19 07:30 Actual Procedures p Percutaneous Endovascular Aneurysm Repair, Percutaneous Approach(Bilateral) - Mariano Mason MD Ordered Studies 10/26/19 07:15 EV AAA repair aorta only Routine 10/26/19 07:16 US EV guide vascular access Routine Hospital Course (1) S/P AAA (abdominal aortic aneurysm) repair: Pt doing well post op day 1 from PEVAR. D/C home today. Will see in office in 2 weeks. Total Time Total Time Spent Total Time Spent (In Minutes): 0 Discharge Plan Discharge Items Patient Disposition: Home - Self-Care Reason For Visit: Abdominal Aorta Aneurysm Discharge Diagnosis: 1. s/p PEVAR 2. AAA Condition on Discharge: Good Activity: Per Instructions section Lifting: Gradually increase as tolerated Bathing Comment: May shower, no bathing Sexual Activity: When tolerated Exercise/Sports: Gradually increase as tolerated Driving/Machine Use: Resume 1 day after discharge Weightbearing: Full weightbearing Non-emergency contact: Primary Care Provider and Surgeon Call non-emergency contact if: you have any medication questions, your pain is not controlled, your pain is concerning for you, your rectal temperature is above 100.4, your wound has increased redness and your wound has increased drainage Follow-up/Referrals: Jaden Beebe [Primary Care Provider] - Mariano Mason MD [Physician] - (Follow up in [address] Mason or Елена Collado PA-C. ) Diet: Heart Healthy Addtl Attending Provider Instructions: SPECIAL CARE INSTRUCTIONS: Medications: * Continue to take your medications as directed. Incision/Puncture Site Care: * You will have an incision or puncture in each of your groins. Liquid glue will be used to seal your incisions/puncture site. This will lift off as the incisions/puncture sites heal. * If Liquid glue is not used, there will be small dressings covering your incisions. After you get home, you may remove the dressings and shower - allowing the warm soapy water to run over it. * Be sure to dry the sites well and keep them dry. * DO NOT SOAK IN A TUB/POOL/etc. UNTIL ALL SURGICAL SITES ARE HEALED. DO NOT REMOVE THE GLUE UNTIL THE INCISIONS HEAL. Restrictions: * Limit yourself to planisher activity for the first week. * You may walk and go up and down steps. * Avoid excessive bending or movement at the level of the incisions or punctures. Risks and Possible Complications: * Infection/Drainage/Bleeding - Drainage or bleeding from the incisions/puncture site should be minimal. If you have excessive bleeding or drainage, call our office ([phone]) right away. * Pain/Numbness - You may experience some mild pain or soreness at your incision sites. You may also have some numbness around the incisions or into the insides of your thighs. Bruising is normal and should resolve within 2 weeks. * Changes in Appetite or Bowel Habits - Mostly related to anesthesia and pain medication, some patients have reported decreased appetite and/or problems with constipation. These symptoms usually improve over a few weeks. Remembering to take an [id number] stool softener, as directed, will help you to avoid constipation. Call our office and seek emergent treatment if you develop: * Fever or chills * Have a temperature greater than 101 degrees F * Any redness or purulent drainage from your incisions or punctures * Severe abdominal, chest or back pain SKIN IRRITATION: * You may experience some redness and/or swelling in the area where radiation was administered. If any skin irritation occurs, please contact your family physician. You will be receiving a call from the Vascular Surgery Nurse after you are discharged. FOLLOW UP VISIT: It is important for you to keep your follow up appointments with your medical provider. Keep any scheduled doctor appointments. Pending Studies at Discharge: No Stand-Alone Forms: [facility], Smoking Cessation Medications and DC Order Prescriptions: New oxycodone-acetaminophen 5-325 mg tablet 1 tab PO Q6H PRN (Reason: pain) Qty: 20 RF: 0 Continued multivitamin Tablet 1 tab PO QAM RF: 0 Discharge Orders: Discharge Order (Routine); Ordered 10/27/19 Ordered By: Елена Collado Admission Data Admit Date/Time: 10/26/19 09:49 Attending Provider: Mariano Mason Admit Provider: Mariano Mason Primary Care Provider: Jaden Beebe Other Providers: Harrison Clark ; Neftaly Rodriguez Seth D. ; Royal Reddy Chase B. ; Rafael Israel ; Jocelyn Page Other Interventions: Discharge Summary Assessment (RN) Last Done: 10/27/19 16:31 DC Date/Time DO NOT enter until pt leaves facility: 10/27/19 16:55
--- NOTE | 2019-10-28 16:32 | Billing Data ---
Date of Service October 26, 2019 Coding Level of Care Code 86820 Inpt Consult Level 4
== END 2019-10-27 16:55 | disposition home or self-care (01) | DRG 269 ==
LOC: ASU 05:26 → 1E 09:49

== ENCOUNTER 2020-07-28 12:23 | Inpatient (IN) ==
--- NOTE | 2020-07-28 13:31 | Emergency Department Note ---
Impression & Plan COVID-19, Hypoxia, Breathlessness, Near syncope ED Provider Note Provider: Jim Phoenix MD DATE OF SERVICE: 07/28/2020 CHIEF COMPLAINT: Shortness of breath HISTORY OF PRESENT ILLNESS: Patient is a 74-year-old gentleman history of AAA status post repair and prior colonic mass currently ill with COVID-19 presenting here today complaining worsening shortness of breath. Patient states that he became ill roughly 10 days ago was seen in the emergency room several times earlier in the week. I did previously see this patient and the beginning of the week in the emergency department. Came back several days ago with continued shortness of breath but has been using his home oxygen. Started on dexamethasone at that time approximately 3 days ago. Patient states he has been taking this including this morning but developed with a bloody cough overnight. Reports mild hemoptysis. Still with shortness of breath particular with movement. Patient states was walking even on his 2 L of oxygen at home he is been noting his pulse ox dropped in the 80s and once into the 70s. States has been somewhat lightheaded with this but states he did not pass out or fall. Denies significant GI disturbance or leg swelling. States his is ill at home but not as ill with him. States he was on his 2 L of oxygen last night (normally just uses this 2 L at night) but his pulse ox only once got above 90% for a brief period. Patient states the inhalers not been helping his breathing much. States he still has a bit of pain around his bilateral lower ribs. REVIEW OF SYSTEMS: A total of 10 review of systems was obtained and negative except as stated above in the HPI. PAST MEDICAL HISTORY: As noted above MEDICATIONS: Reviewed home medication list SOCIAL HISTORY: Lives at home with , former smoker PHYSICAL EXAM: GENERAL: alert and oriented on the stretcher with mask in place nasal cannula oxygen appears fatigued Head: normocephalic and atraumatic EYES: No injection, discharge or icterus. NECK: Trachea midline LUNGS: Airway patent. No retractions. Breath sounds generally diminished but slightly tachypneic HEART: Regular rate and rhythm. Slight bilateral lower chest wall tenderness ABDOMEN: Soft and non-tender, without guarding or rebound. SKIN: Acyanotic, warm, dry, without rashes EXTREMITIES: Without swelling, tenderness or deformity NEUROLOGICAL: No focal deficits. No aphasia. No facial droop or slurred speech. EK bpm sinus rhythm with PACs. No acute ST segment elevation noted with right bundle branch block left anterior fascicular block QTC 500. Compared to previous from July 25 of this year, similar now with PAC CONTINUOUS CARDIAC MONITORING: was ordered and showed a heart rate of 70s to 80s bpm in sinus rhythm occasional PACs Patient's laboratory studies and imaging reviewed. Differential includes Reactive airway disease, pneumonia, pneumothorax, COPD, CHF, infections, cardiac ischemia, pulmonary embolism, musculoskeletal, gastrointestinal, as well as other pathologies. IMPRESSION/MEDICAL DECISION MAKING: Patient Covid positive again a week on steroids for several days and hypoxia. Refused admission earlier in the week on his second visit. I saw him on the first visit. Records reviewed. Patient has been using his nightly home oxygen regularly and on steroids for several days now with worsening. States he is having some weakness and near syncope when trying to walk at home and desaturating. X-ray and basic labs obtained. Had a CTA less than a week ago negative for PE. Not significantly tachycardic here. Not having significant GI symptoms. No significant electrolyte abnormality noted. Renal function appears stable. Improving leukopenia compared to previous. Do believe he is likely suffering from continued symptoms from coronavirus. Chest x-ray shows worsening consistent with this. Lower suspicion at this time for bacterial component. Not having severe abdominal or chest pain to indicate AAA graft failure or dissection and again had a recent CT of the chest and abdomen pelvis. Given the mild hypoxia at rest do not believe we need repeat CTA of the chest at this time. Already took a dose of dexamethasone this morning and thus will defer additional at this time. Discussed with the patient given his significant shortness of breath and hypoxia he has noted at home with near syncope believe further care here at the hospital would be prudent. Patient at this time is agreeable to stay in hospital and states he has family who can look after his at this time. DIAGNOSIS: COVID-19 pneumonia, shortness of breath, hypoxia DISPOSITION: Hospitalist will evaluate Patient was agreeable with this plan. Past Med/Surg History Medical History (Updated 07/28/20 @ 13:31 by Jim Phoenix M.D.) Anemia chronic, baseline 11-12 range per chart review Ascending aortic aneurysm Hearing deficit B/L PEREZ History of colon cancer History of skin cancer removed History of trigger finger right hand repaired Surgical History (Updated 10/26/19 @ 11:24 by Luci Brooke DO) History of blepharoplasty History of cataract surgery Family History Brother Stomach cancer Other No family history of adverse response to anesthesia Social History Smoking Status: Former smoker Age Quit Using Tobacco: 37; Second Hand Exposure: No; Hx Alcohol Use: No Hx Substance Use: No Preferred Language: Montene[place] Communication Ability: Effective Humid System Operator Required: No Beliefs That Will Affect Care: None marital status: Current Living Situation: Spouse Feels Safe at Home: Yes Assistive Devices: Denture - Upper, Denture - Lower and Hearing Aid - Bilateral Allergies Allergies Allergy/AdvReac Type Severity Reaction Status Date / Time latex Allergy Redness of Verified 07/28/20 13:57 Skin Home Meds Home Medications Medication Instructions Recorded Confirmed multivitamin 1 tab PO QAM 09/04/19 07/28/20 amlodipine [Norvasc] 5 mg PO PM 07/23/20 07/28/20 aspirin [Denise Aspirin] 325 mg PO DIRECTED PRN 07/23/20 07/28/20 Previous Rx's Medication Instructions Recorded albuterol sulfate 3 inh INHALATION Q4H #18 g 07/25/20 dexamethasone [Decadron] 6 mg PO DAILY #6 tab 07/25/20 Results & Data (ED) Vital Signs Vital Signs - 24 hr 07/28/20 12:30 07/28/20 12:45 07/28/20 12:47 Temperature 36.6 C Temperature Source Oral Pulse Rate 71 81 81 Pulse Rate from SpO2 Sensor 81 82 Pulse Rhythm Regular Pulse Strength Normal Respiratory Rate 22 23 23 Respiratory Effort / Characteristics Non-Labored Spontaneous Respiratory Depth Normal Respiratory Pattern Regular Blood Pressure 160/114 H 181/95 H Blood Pressure Mean 129 123 Blood Pressure Position Sitting Pulse Oximetry 89 L 93 93 Oxygen Delivery Method Room Air Oxygen Flow Rate Sepsis Recent Fever Within 48 Hours No Sepsis New/Unexplained Change in Mental Status N/A Sepsis Action Taken by Nursing No Action Required 07/28/20 12:50 07/28/20 13:00 07/28/20 13:10 Temperature Temperature Source Pulse Rate 85 Pulse Rate from SpO2 Sensor 79 85 73 Pulse Rhythm Pulse Strength Respiratory Rate 22 21 Respiratory Effort / Characteristics Respiratory Depth Respiratory Pattern Blood Pressure Blood Pressure Mean Blood Pressure Position Pulse Oximetry 92 91 92 Oxygen Delivery Method Oxygen Flow Rate Sepsis Recent Fever Within 48 Hours Sepsis New/Unexplained Change in Mental Status Sepsis Action Taken by Nursing 07/28/20 13:20 07/28/20 13:26 07/28/20 13:30 Temperature Temperature Source Pulse Rate 83 83 82 Pulse Rate from SpO2 Sensor 78 82 81 Pulse Rhythm Pulse Strength Respiratory Rate 22 17 25 H Respiratory Effort / Characteristics Respiratory Depth Respiratory Pattern Blood Pressure 141/79 H Blood Pressure Mean 99 Blood Pressure Position Pulse Oximetry 91 92 90 Oxygen Delivery Method Oxygen Flow Rate Sepsis Recent Fever Within 48 Hours Sepsis New/Unexplained Change in Mental Status Sepsis Action Taken by Nursing 07/28/20 13:31 07/28/20 13:32 07/28/20 13:40 Temperature Temperature Source Pulse Rate 94 H 84 Pulse Rate from SpO2 Sensor 85 74 83 Pulse Rhythm Regular Pulse Strength Respiratory Rate 25 H 21 16 Respiratory Effort / Characteristics Non-Labored Respiratory Depth Normal Respiratory Pattern Blood Pressure 150/75 H Blood Pressure Mean 100 Blood Pressure Position Pulse Oximetry 91 91 92 Oxygen Delivery Method Nasal Cannula Oxygen Flow Rate 3 Sepsis Recent Fever Within 48 Hours Sepsis New/Unexplained Change in Mental Status Sepsis Action Taken by Nursing Laboratory Data Result diagrams: 07/28/20 13:24 07/28/20 13:24 Lab Results 07/28/20 07/28/20 07/28/20 Range/Units 13:08 13:24 13:24 WBC 4.05 L (4.8-10.8) K/uL RBC 4.19 L (4.7-6.1) M/uL Hgb 14.0 (14.0-18.0) g/dL Hct 38.5 L (42-52) % MCV 91.9 (80-100) fL MCH 33.4 (25-34) pg MCHC 36.4 H (32-36) g/dL RDW Std Deviation 43.6 (36.4-46.3) fL RDW Coeff of Kang 13.0 (11.5-14.5) % Plt Count 137 (130-400) K/uL MPV 11.1 H (7.4-10.4) fL Immature Gran % (Auto) 0.2 % Neut % (Auto) 87.0 % Lymph % (Auto) 8.4 % Taney % (Auto) 4.4 % Eos % (Auto) 0.0 % Baso % (Auto) 0.0 % Neut # (Auto) 3.52 (1.4-6.5) K/uL Lymph # (Auto) 0.34 L (1.2-3.4) K/uL Taney # (Auto) 0.18 (0.11-0.59) K/uL Eos # (Auto) 0.00 (0-0.5) K/uL Baso # (Auto) 0.00 (0-0.2) K/uL Immature Gran # (Auto) 0.01 (0.00-0.02) K/uL PT 10.1 (9.0-12.0) Seconds INR 1.0 (0.9-1.1) APTT 26.7 (21.0-31.0) Seconds PTT Ratio 1.0 Sodium (136-145) mmol/L Potassium (3.5-5.1) mmol/L Chloride (98-107) mmol/L Carbon Dioxide (21-32) mmol/L Anion Gap (3-11) BUN (7-18) mg/dl Creatinine (0.6-1.4) mg/dl Est Cr Clr Drug Dosing ml/min Est GFR ( Amer) Est GFR (Non-Af Amer) BUN/Creatinine Ratio (10-20) Glucose (70-99) mg/dl Calcium (8.5-10.1) mg/dl Magnesium (1.8-2.4) mg/dl Total Bilirubin (0.2-1) mg/dl AST (15-37) U/L ALT (12-78) U/L Alkaline Phosphatase (45-117) U/L Troponin I (0-0.045) ng/ml Total Protein (6.4-8.2) gm/dl Albumin (3.4-5.0) gm/dl Globulin (2.5-4.0) gm/dl Albumin/Globulin Ratio (0.9-2) Urine Color Yellow Urine Appearance Clear (Clear) Urine pH 5.0 (4.5-7.5) Ur Specific [place] 1.028 (1.000-1.030) Urine Protein 2+ H (Negative) Urine Glucose (UA) Negative (Negative) Urine Ketones Negative (Negative) Urine Blood Trace H (Negative) Urine Nitrite Negative (Negative) Urine Bilirubin Negative (Negative) Urine Urobilinogen Negative (Negative) Ur Leukocyte Esterase Negative (Negative) Urine WBC (Auto) 1-5 (0-5) /hpf Urine RBC (Auto) 0-4 (0-4) /hpf U Hyaline Cast (Auto) 1-5 (0-5) /lpf U Epithel Cells (Auto) 5-10 H (0-5) /lpf Urine Bacteria (Auto) Negative (Negative) 07/28/20 Range/Units 13:24 WBC (4.8-10.8) K/uL RBC (4.7-6.1) M/uL Hgb (14.0-18.0) g/dL Hct (42-52) % MCV (80-100) fL MCH (25-34) pg MCHC (32-36) g/dL RDW Std Deviation (36.4-46.3) fL RDW Coeff of Kang (11.5-14.5) % Plt Count (130-400) K/uL MPV (7.4-10.4) fL Immature Gran % (Auto) % Neut % (Auto) % Lymph % (Auto) % Taney % (Auto) % Eos % (Auto) % Baso % (Auto) % Neut # (Auto) (1.4-6.5) K/uL Lymph # (Auto) (1.2-3.4) K/uL Taney # (Auto) (0.11-0.59) K/uL Eos # (Auto) (0-0.5) K/uL Baso # (Auto) (0-0.2) K/uL Immature Gran # (Auto) (0.00-0.02) K/uL PT (9.0-12.0) Seconds INR (0.9-1.1) APTT (21.0-31.0) Seconds PTT Ratio Sodium 140 (136-145) mmol/L Potassium 3.8 (3.5-5.1) mmol/L Chloride 109 H (98-107) mmol/L Carbon Dioxide 27 (21-32) mmol/L Anion Gap 4.0 (3-11) BUN 24 H (7-18) mg/dl Creatinine 0.98 (0.6-1.4) mg/dl Est Cr Clr Drug Dosing 71.6 ml/min Est GFR ( Amer) 86.5 Est GFR (Non-Af Amer) 74.6 BUN/Creatinine Ratio 24.4 H (10-20) Glucose 132 H (70-99) mg/dl Calcium 8.4 L (8.5-10.1) mg/dl Magnesium 2.3 (1.8-2.4) mg/dl Total Bilirubin 0.5 (0.2-1) mg/dl AST 56 H (15-37) U/L ALT 55 (12-78) U/L Alkaline Phosphatase 55 (45-117) U/L Troponin I < 0.015 (0-0.045) ng/ml Total Protein 7.0 (6.4-8.2) gm/dl Albumin 3.3 L (3.4-5.0) gm/dl Globulin 3.7 (2.5-4.0) gm/dl Albumin/Globulin Ratio 0.9 (0.9-2) Urine Color Urine Appearance (Clear) Urine pH (4.5-7.5) Ur Specific [place] (1.000-1.030) Urine Protein (Negative) Urine Glucose (UA) (Negative) Urine Ketones (Negative) Urine Blood (Negative) Urine Nitrite (Negative) Urine Bilirubin (Negative) Urine Urobilinogen (Negative) Ur Leukocyte Esterase (Negative) Urine WBC (Auto) (0-5) /hpf Urine RBC (Auto) (0-4) /hpf U Hyaline Cast (Auto) (0-5) /lpf U Epithel Cells (Auto) (0-5) /lpf Urine Bacteria (Auto) (Negative) Imaging Data Radiologist's Impression: Chest X-Ray 07/28/20 12:51 XR chest 1V portable CLINICAL HISTORY: Dyspnea, COVID+ COMPARISON STUDY: Chest CT July 23, 2020. Chest radiograph July 25, 2020. FINDINGS: Cardiomegaly is noted. No pneumothorax or pleural effusion. There has been significant progression of bilateral airspace opacities since prior examination. IMPRESSION: Significant progression of bilateral airspace opacities consistent with viral pneumonia. ACT 112: Negative or not required by law. Electronically signed by: Gonzales Bearden M.D. 07/28/2020 2:08 PM Discharge Plan Visit Data Chief Complaint: Shortness of Breath/Dyspnea Stated Complaint: SOB LOW OXYGEN ED Provider: Jim Phoenix Discharge Problem: COVID-19, Hypoxia, Breathlessness, Near syncope Patient Disposition: Being Evaluated by Hospitalist Forms Stand Alone Forms: My [facility] Prescriptions Prescriptions: No Action multivitamin Tablet 1 tab PO QAM RF: 0 aspirin [Denise Aspirin] 325 mg Tablet 325 mg PO DIRECTED PRN (Reason: Fever) RF: 0 amlodipine [Norvasc] 5 mg tablet 5 mg PO PM RF: 0 albuterol sulfate 90 mcg/actuation HFA aerosol inhaler 3 inh inhalation Q4H Qty: 18 RF: 2 dexamethasone [Decadron] 6 mg tablet 6 mg PO DAILY Qty: 6 RF: 0 Referrals Referrals: Jaden Beebe [Primary Care Provider] -
[2020-07-28 13:36] LABS: Hematocrit (blood only) 38.5 % (42-52); Immature Granulocytes # (auto) 0.01 K/uL (0.00-0.02); Immature Granulocytes % (auto) 0.2 %; Lymphocytes # (auto) 0.34 K/uL (1.2-3.4); Lymphocytes % (auto) 8.4 %; Mean Corpuscular Hemoglobin 33.4 pg (25-34); Mean Corpuscular Hgb Conc 36.4 g/dL (32-36); Mean Corpuscular Volume 91.9 fL (80-100); Mean Platelet Volume 11.1 fL (7.4-10.4); Monocytes # (auto) 0.18 K/uL (0.11-0.59); Monocytes % (auto) 4.4 %; Neutrophils # (auto) 3.52 K/uL (1.4-6.5); Platelet Count 137 K/uL (130-400); RDW Standard Deviation 43.6 fL (36.4-46.3); Red Blood Count 4.19 M/uL (4.7-6.1); White Blood Count 4.05 K/uL (4.8-10.8)
[2020-07-28 13:47] LABS: Appearance Urine Clear (Clear); Bacteria Urine Automated Negative (Negative); Bilirubin Urine Negative (Negative); Blood Urine Trace (Negative); Color Urine Yellow; Glucose Urine UA Negative (Negative); Ketones Urine Negative (Negative); Leukocyte Esterase Urine Negative (Negative); Nitrite Urine Negative (Negative); Protein Urine 2+ (Negative); RBC Urine Automated 0-4 /hpf (0-4); Specific Gravity Urine 1.028 (1.000-1.030); Urobilinogen Urine Negative (Negative)
[2020-07-28 13:56] LABS: Partial Thromboplastin Time 26.7 Seconds (21.0-31.0); Prothrombin Time 10.1 Seconds (9.0-12.0)
[2020-07-28 13:57] LABS: Alanine Aminotransferase 55 U/L (12-78); Albumin Level 3.3 gm/dl (3.4-5.0); Aspartate Aminotransferase 56 U/L (15-37); BUN Creatinine Ratio 24.4 (10-20); Blood Urea Nitrogen 24 mg/dl (7-18); Calcium 8.4 mg/dl (8.5-10.1); Carbon Dioxide 27 mmol/L (21-32); Chloride 109 mmol/L (98-107); Creatinine Clr Calc Pharmacy 71.6 ml/min; Est GFR (African American) 86.5; Est GFR (Non-African American) 74.6; Glucose 132 mg/dl (70-99); Magnesium 2.3 mg/dl (1.8-2.4); Potassium 3.8 mmol/L (3.5-5.1); Sodium 140 mmol/L (136-145)
[2020-07-28 14:01] LABS: Albumin Globulin Ratio 0.9 (0.9-2); Alkaline Phosphatase 55 U/L (45-117); Bilirubin,Total 0.5 mg/dl (0.2-1); Globulin 3.7 gm/dl (2.5-4.0); Troponin I < 0.015 ng/ml (0-0.045)
--- NOTE | 2020-07-28 14:09 | XRay Report ---
XR chest 1V portable CLINICAL HISTORY: Dyspnea, COVID+ COMPARISON STUDY: Chest CT July 23, 2020. Chest radiograph July 25, 2020. FINDINGS: Cardiomegaly is noted. No pneumothorax or pleural effusion. There has been significant prog ression of bilateral airspace opacities since prior examination. IMPRESSION: Significant progression of bilateral airspace opacities consistent with viral pneumonia. ACT 112: Negative or not required by law. Electronically signed by: Gonzales Bearden M.D. 07/28/2020 2:08 PM
--- NOTE | 2020-07-28 14:17 | History & Physical Report ---
Date of Service July 28, 2020 Assessment & Plan (1) COVID-19: COVID 19 with worsening dyspnea and increased oxygen use - Continue Decadron 6 mg IV - Continue oxygen - Remdesivir- will need to follow LFT's, patient has had elevated LFT in the past. - Will add on Azithromycin for bacterial coverage, PCT pending - Lovenox 0.5mg/kg q12 - Self rotation therapy - Patient has bilateral shoulder pain and back pain- he may not be able to prone - Albuterol 2 puffs PRN (2) Hypoxia: As above - Continue oxygen therapy - Goal 92% titrate NC to 6LNC, then transition to HFNC (3) Acute right flank pain: Pain with coughing, pain with palpation between intercostals - Tylenol (4) HTN (hypertension): [place] amlodopine - Start ASA 81 mg daily for primary prevention (5) S/P AAA (abdominal aortic aneurysm) repair: No acute needs - Control BP (6) DVT prophylaxis: SCD', Lovenox 0.5mg/kg q12 History of Present Illness Primary Care Provider: Jaden Beebe 74 YOM with past medical history of skin cancer, AAA with EVAR in 2019, HTN, RBBB and hemicolectomy with 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 Patient has been into the emergency room this week for COVID symptoms and tested positive on Thursday. He is unsure when he started feeling ill, but his was diagnosed last week with COVID. He reports that he has generally been feeling well but has noticed increase in dyspnea. He normally only wears oxygen at night when sleeping, but he has been wearing 2LNC continuously at home with a reported SPO2 88% this morning as well as a hypoxia with ambulation here, he has been having a cough that is also getting worse. He was started on oral dexamethasone on Thursday, with albuterol inhaler, he had a CTA performed earlier in the week that was negative for PE, and CXR done today shows progression of infiltrates. He had an eppisode of feeling like he was going to pass out this morning after a coughing spell as well. Patient will be admitted for continued COVID 19 care, remain on dexamethasone, is a candidate for Remdisivir. His is at home and he has family that is able to help take care of her. Allergies Allergy/AdvReac Type Severity Reaction Status Date / Time latex Allergy Redness of Verified 07/28/20 13:57 Skin Home Medications Medication Instructions Recorded Confirmed Type multivitamin 1 tab PO QAM 09/04/19 07/28/20 History amlodipine [Norvasc] 5 mg PO PM 07/23/20 07/28/20 History aspirin [Denise Aspirin] 325 mg PO DIRECTED PRN 07/23/20 07/28/20 History albuterol sulfate 3 inh INHALATION Q4H #18 g 07/25/20 07/28/20 Rx dexamethasone [Decadron] 6 mg PO DAILY #6 tab 07/25/20 07/28/20 Rx Past Med/Surg History Medical History (Updated 07/28/20 @ 15:24 by CANDICE Diop) Anemia chronic, baseline 11-12 range per chart review Ascending aortic aneurysm Hearing deficit B/L PEREZ History of colon cancer History of skin cancer removed History of trigger finger right hand repaired Surgical History History of blepharoplasty History of cataract surgery Family History Brother Stomach cancer Other No family history of adverse response to anesthesia Social History Smoking Status: Former smoker Age Quit Using Tobacco: 37; Second Hand Exposure: No; Hx Alcohol Use: No Hx Substance Use: No Preferred Language: Citizen Of [place] Communication Ability: Effective Mail Processing Machine Operator Required: No Beliefs That Will Affect Care: None marital status: Current Living Situation: Spouse Feels Safe at Home: Yes Assistive Devices: Denture - Upper, Denture - Lower and Hearing Aid - Bilateral Review of Systems Review of Systems: REVIEW OF SYSTEMS: Constitutional: No fever, sweats or chills Eyes: No diplopia, no worsening or blurred vision ENT: (+) difficulty hearing, no trouble swallowing Respiratory: (+) cough, dyspnea at rest or on exertion, (-) sputum Cardiovascular: (+) dizziness, No chest pain, tightness or palpitations Abdomen: No pain, nausea, vomiting, diarrhea or constipation Musculoskeletal: No joint pain, calf pain, swelling Neurologic: No weakness, numbness/tingling, or balance problems Psychiatric: No anxiety or depression Skin: No rash or itch Physical Exam Physical Exam: PHYSICAL EXAM: General: awake, alert, no apparent distress Head: Normocephalic, atraumatic ENT: PERRL, EOMI, no pharyngeal exudate, mucous membranes moist Neuro: AAO x 3, speech clear and appropriate, strength intact bilaterally 5/5, sensation intact and equal all extremities and dermatomes, no pronator drift Chest: equal rise and fall of the chest, dyspneic without, accessory muscle use, does get increase dyspnea with movement, no heaves or thrills, expiratory wheeze on auscultaton, on 3LNC, Cardiac: Regular rate and rhythm, telemetry reviewed, S1S2, skin warm dry, cap refill <3 seconds, peripheral pulses +2 no JVD, no murmur,no edema GI: NABS x 4 quadrants, soft, nontender to palpation, no rebound, guarding or tenderness : Spontaneously voiding, no pain, no CVA tenderness, Extremities: Normal inspection, no peripheral edema or erythema, calfs nontender to palpation Psych: slow in responses but is appropriate Skin: no rash or erythema Results & Data Results & Data ([facility]) Vital Signs (Past 12 Hours) Vital Signs Temp Pulse Resp BP Pulse Ox 07/28/20 13:40 16 92 07/28/20 13:32 84 21 91 07/28/20 13:31 94 H 25 H 150/75 H 91 07/28/20 13:30 82 25 H 90 07/28/20 13:26 83 17 141/79 H 92 07/28/20 13:20 83 22 91 07/28/20 13:10 92 07/28/20 13:00 21 91 07/28/20 12:50 85 22 92 07/28/20 12:47 81 23 93 07/28/20 12:45 81 23 181/95 H 93 07/28/20 12:30 36.6 C 71 22 160/114 H 89 L Laboratory Results Abnormal lab results 07/28/20 07/28/20 07/28/20 Range/Units 13:08 13:24 13:24 WBC 4.05 L (4.8-10.8) K/uL RBC 4.19 L (4.7-6.1) M/uL Hct 38.5 L (42-52) % MCHC 36.4 H (32-36) g/dL MPV 11.1 H (7.4-10.4) fL Lymph # (Auto) 0.34 L (1.2-3.4) K/uL Chloride 109 H (98-107) mmol/L BUN 24 H (7-18) mg/dl BUN/Creatinine Ratio 24.4 H (10-20) Glucose 132 H (70-99) mg/dl Calcium 8.4 L (8.5-10.1) mg/dl AST 56 H (15-37) U/L Albumin 3.3 L (3.4-5.0) gm/dl Urine Protein 2+ H (Negative) Urine Blood Trace H (Negative) U Epithel Cells (Auto) 5-10 H (0-5) /lpf Diagnostic Findings Chest X-Ray 07/28/20 12:51 XR chest 1V portable CLINICAL HISTORY: Dyspnea, COVID+ COMPARISON STUDY: Chest CT July 23, 2020. Chest radiograph July 25, 2020. FINDINGS: Cardiomegaly is noted. No pneumothorax or pleural effusion. There has been significant progression of bilateral airspace opacities since prior examination. IMPRESSION: Significant progression of bilateral airspace opacities consistent with viral pneumonia. CT ANGIOGRAPHY OF THE CHEST0 07/23/20 CLINICAL HISTORY: R flank pain, fever, sob, hx AAA repair COMPARISON STUDY: Chest CT October 07, 2019. Chest radiograph performed earlier today. TECHNIQUE: Helical axial images of the chest were obtained during arterial phase following intravenous injection 114 cc of Optiray 320 IV. Sagittal and coronal reconstructions were viewed as well as maximal intensity projections on an independent 3-D workstation. Automated exposure control was utilized for the radha dy. A dose lowering technique was utilized adhering to the principles of ALARA. FINDINGS: No thoracic aortic dissection is present. Mild dilatation of the ascending aorta, measuring 4.2 cm, is similar to chest CT of October 07, 2019. Mild cardiomegaly is noted. There are multiple mildly enlarged mediastinal bilateral hilar lymph nodes. Index right hilar node measures 1.3 cm in short axis diameter. No pneumothorax or pleural effusion is noted. Moderate emphysema is present. Mild multifocal groundglass opacities within the lungs are noted. Abdomen and pelvis will be reported separately. No pulmonary emboli are identified. There is no axillary lymphadenopathy. IMPRESSION: 1. No thoracic dissection. Stable mild dilatation of the ascending aorta, measuring 4.2 cm. Cardiomegaly. 2. Mild multifocal groundglass opacities within the lungs suggestive of viral pneumonia. 3. Mild mediastinal and bilateral hilar lymphadenopathy which is probably reactive. 4. Emphysema. ECG Additional Comments: Sinus rhythm with Premature atrial complexes Right bundle branch block Left anterior fascicular block Bifascicular block Abnormal ECG When compared with ECG of 25-JUL-2020 17:48, Premature atrial complexes are now Present Code Status & VTE Plan Code Status CODE: FULL VTE: SCD's, Lovenox 0.5mg/kg q12, VTE Prophylaxis Plan VTE Prophylaxis will be ordered: Yes Supervising Physician Co-Signing Physician Notes Patient not seen to minimize a Covid exposure. I did discuss the case with nurse practitioner, agree with his note above. Patient previously diagnosed with COVID-19, and worsening dyspnea with increased oxygen requirement. Now on IV Decadron along with azithromycin. Patient is a possible candidate for remdesivir as well but will need LFTs. Patient is also on daily aspirin, started on Lovenox for DVT prophylaxis. We will continue to monitor for improvement. Continue COVID-19 precautions. PG Care Time/CCT Total # of Minutes Spent Total Time Spent with Patient: Total time spent is greater than 50% in coordination of care (as documented) at patient's floor/unit and/or counseling patient: Coding Level of Care Code 60601 Initial Inpt Care Lvl 3 Diagnoses COVID-19 U07.1 Hypoxia R09.02 Acute right flank pain R10.9 HTN (hypertension) I10 Hypertension type: essential hypertension S/P AAA (abdominal aortic aneurysm) repair Z98.890; Z86.79 DVT prophylaxis Z29.9 (1) HTN (hypertension) Hypertension type: essential hypertension Qualified Code(s): I10 - Essential (primary) hypertension
[2020-07-28] MEDS: AZITHROMYCIN 250 MG TAB PO SCH (15:39)
--- NOTE | 2020-07-28 15:40 | Electrocardiogram Report ---
Test Reason : Blood Pressure : / mmHG Vent. Rate : 080 BPM Atrial Rate : 080 BPM P-R Int : 158 ms QRS Dur : 142 ms QT Int : 434 ms P-R-T Axes : 039 -45 -10 degrees QTc Int : 500 ms Sinus rhythm with Premature atrial complexes Right bundle branch block Left anterior fascicular block Bifascicular block Abnormal ECG When compared with ECG of 25-JUL-2020 17:48, Premature atrial complexes are now Present Confirmed by Panfilo Pedro ([id number]) on 07/28/2020 3:40:06 PM Referred By: REFERRED SELF Confirmed By:Panfilo Pedro
[2020-07-28] MEDS ORDERED: ACETAMINOPHEN 325 MG TAB PO PRN (17:31)
[2020-07-28] MEDS ORDERED: POLYETHYLENE (MIRALAX) 17 GM PACK PO PRN (17:31)
[2020-07-28] MEDS ORDERED: ENOXAPARIN 0.5 MG/KG SQ SCH (17:31)
[2020-07-28] MEDS ORDERED: ASPIRIN 325 MG ECTAB PO PRN ×2 (17:31)
[2020-07-28] MEDS ORDERED: ALBUTEROL HFA 8 GM INHALER INH SCH (17:31)
[2020-07-28] MEDS ORDERED: ONDANSETRON INJ 2 MG/ML 2 ML VIAL IV PRN (17:31)
[2020-07-28] MEDS ORDERED: REMDESIVIR 200 MG in SODIUM CHLORIDE 0.9% 210 ML IV ONE (18:30)
[2020-07-28 18:52] LABS: Fibrinogen 507 mg/dl (184-400)
[2020-07-28] MEDS: ALBUTEROL HFA 8 GM INHALER INH SCH ×2 (19:06→22:46)
[2020-07-28] MEDS: amLODIPine BESYLATE 5 MG TAB PO SCH (20:03)
[2020-07-28] MEDS: ENOXAPARIN INJ 60 MG/0.6 ML SYR SQ SCH (20:03)
[2020-07-28] MEDS: SODIUM CHLORIDE 0.9% 10ML FLUSH IV SCH (21:34)
[2020-07-29] MEDS: ALBUTEROL HFA 8 GM INHALER INH SCH ×6 (03:33→22:10)
[2020-07-29 06:45] LABS: Hematocrit (blood only) 39.9 % (42-52); Hemoglobin 14.2 g/dL (14.0-18.0); Immature Granulocytes # (auto) 0.01 K/uL (0.00-0.02); Immature Granulocytes % (auto) 0.2 %; Lymphocytes % (auto) 9.9 %; Mean Corpuscular Hemoglobin 32.1 pg (25-34); Mean Corpuscular Hgb Conc 35.6 g/dL (32-36); Mean Corpuscular Volume 90.3 fL (80-100); Mean Platelet Volume 11.2 fL (7.4-10.4); Monocytes # (auto) 0.29 K/uL (0.11-0.59); Monocytes % (auto) 7.1 %; Neutrophils # (auto) 3.36 K/uL (1.4-6.5); Neutrophils % (auto) 82.8 %; Platelet Count 144 K/uL (130-400); RDW Standard Deviation 42.7 fL (36.4-46.3); Red Blood Count 4.42 M/uL (4.7-6.1); White Blood Count 4.06 K/uL (4.8-10.8)
[2020-07-29 07:16] LABS: BUN Creatinine Ratio 22.1 (10-20); C Reactive Protein 5.3 mg/dl (0-0.29); Creatinine Clr Calc Pharmacy 76.9 ml/min; Est GFR (African American) 95.8; Est GFR (Non-African American) 82.7; Magnesium 2.1 mg/dl (1.8-2.4); Potassium 3.5 mmol/L (3.5-5.1)
[2020-07-29] MEDS: ASPIRIN 81 MG ECTAB PO SCH (08:06)
[2020-07-29] MEDS: dexAMETHasone 6 MG in SYRINGE 0 ML IV SCH (08:06)
[2020-07-29] MEDS: ENOXAPARIN INJ 60 MG/0.6 ML SYR SQ SCH ×2 (08:07→19:53)
[2020-07-29] MEDS: AZITHROMYCIN 250 MG TAB PO SCH (08:49)
[2020-07-29] MEDS ORDERED: AZITHROMYCIN 250 MG TAB PO SCH (09:00)
[2020-07-29] MEDS ORDERED: guaiFENesin/DEXTROM SYRUP 200MG/20MG 10ML UDC PO PRN (18:29)
--- NOTE | 2020-07-29 18:33 | Hospitalist Progress Note ---
Date of Service July 29, 2020 Assessment & Plan (1) COVID-19: COVID 19 pneumonia with worsening dyspnea and increased oxygen use. Chest x-ray with bilateral infiltrates consistent with viral pneumonia - Continue Decadron 6 mg IV once daily - Continue oxygen-on high flow nasal cannula at 30 L, now weaned from 100% down to 60% FiO2 -Continue remdesivir- will need to follow LFT's, patient has had elevated LFT in the past. First day of treatment was 07/28 -Continue azithromycin for bacterial coverage, PCT negative - Lovenox 0.5mg/kg q12 for VTE prophylaxis - Self rotation therapy - Patient has bilateral shoulder pain and back pain- he may not be able to prone - Albuterol 2 puffs PRN -Flutter valve, incentive spirometry added -Follow CBC, CMP, CRP -If CRP greater than 7 and remains on high flow nasal cannula within 72 hours of admission, may be candidate for tocilizumab (2) Hypoxia: As above - Continue oxygen therapy - Goal pulse ox 92% (3) Acute right flank pain: Pain with coughing, pain with palpation between intercostals - Tylenol as needed -Add guaifenesin DM as needed for cough (4) HTN (hypertension): Blood pressures mildly elevated Continue amlodipine Aspirin 81 mg p.o. once daily added on admission for primary prevention but also may be beneficial for Covid-19 (5) Hemoptysis: Reported scant hemoptysis upon admission, continue to monitor Follow CBC (6) Chronic respiratory failure with hypoxia: Typically is on 2 L nasal cannula at bedtime at home (7) S/P AAA (abdominal aortic aneurysm) repair: No acute needs - Control BP, continue aspirin Should be on a statin-defer to PCP (8) DVT prophylaxis: SCD', Lovenox 0.5mg/kg q12 Disposition-continued stay on telemetry on Covid serrano Admission and Anticipated Discharge Date Admission Date: July 28, 2020 Subjective Patient reports feeling better than upon admission. He is on high flow nasal cannula but was weaned from 100% FiO2 down to 60% FiO2 when I saw him, 30 L. He denies chest pain or shortness of breath, he is somewhat surprised to hear that he may be here for a few days. He denies any nausea or vomiting, no abdominal pain, no diarrhea. Telemetry with normal sinus rhythm, PACs, 2-second burst of PAT, rates mostly in the 80s Review of Systems Review of Systems: All systems reviewed & are unremarkable except as noted in HPI & below Physical Exam Constitutional: WD/WN, vitals as above Eyes: + anicteric sclerae ENMT: Ears: + hearing impairment Neck: trachea midline, no thyromegaly Respiratory: normal respiratory effort Auscultation: + crackles (Lower lung rowe bilaterally) and + wheezes; no rhonchi Cardiovascular: Rate/Rhythm: regular rate and regular rhythm Heart Sounds: no murmur Extremities: + edema (Trace to 1+ pitting edema legs bilaterally); no calf tenderness Chest (Breasts): Chest: normal inspection of chest Gastrointestinal (Abdomen): normal bowel sounds, soft, nontender, no hepatosp lenomegaly Musculoskeletal: Extremities: extremities normal to inspection; no cyanosis and no clubbing Skin: no rashes, warm and dry Neurologic: moves all extremities and awake; no focal motor deficits Psychiatric: Orientation: alert, oriented to person, oriented to place and cooperative Flat affect Lymphatic: no lymphedema Results & Data Results & Data ([facility]) Vital Signs (Past 12 Hours) Vital Signs Temp Pulse Pulse Resp BP BP Pulse Ox 07/29/20 14:40 83 20 94 07/29/20 11:17 36.9 C 95 H 22 141/83 H 93 07/29/20 11:01 91 H 20 90 07/29/20 07:49 36.9 C 85 22 145/82 H 93 07/29/20 07:30 83 07/29/20 07:25 84 20 91 Laboratory Results 07/29/20 07/29/20 07/29/20 Range/Units 11:13 07:47 06:12 WBC (4.8-10.8) K/uL RBC (4.7-6.1) M/uL Hgb (14.0-18.0) g/dL Hct (42-52) % MCV (80-100) fL MCH (25-34) pg MCHC (32-36) g/dL RDW Std Deviation (36.4-46.3) fL RDW Coeff of Kang (11.5-14.5) % Plt Count (130-400) K/uL MPV (7.4-10.4) fL Immature Gran % (Auto) % Neut % (Auto) % Lymph % (Auto) % [place] % (Auto) % Eos % (Auto) % Baso % (Auto) % Neut # (Auto) (1.4-6.5) K/uL Lymph # (Auto) (1.2-3.4) K/uL [place] # (Auto) (0.11-0.59) K/uL Eos # (Auto) (0-0.5) K/uL Baso # (Auto) (0-0.2) K/uL Immature Gran # (Auto) (0.00-0.02) K/uL ESR (0-20) mm/hr Fibrinogen (184-400) mg/dl Sodium (136-145) mmol/L Potassium (3.5-5.1) mmol/L Chloride (98-107) mmol/L Carbon Dioxide (21-32) mmol/L Anion Gap (3-11) BUN (7-18) mg/dl Creatinine (0.6-1.4) mg/dl Est Cr Clr Drug Dosing ml/min Est GFR ( Amer) Est GFR (Non-Af Amer) BUN/Creatinine Ratio (10-20) Glucose (70-99) mg/dl POC Glucose 102 H 85 (70-99) mg/dl Calcium (8.5-10.1) mg/dl Magnesium (1.8-2.4) mg/dl C-Reactive Protein (0-0.29) mg/dl NT-Pro-B Natriuret Pep (0-1800) pg/ml Procalcitonin 0.06 (0-0.5) ng/ml 07/29/20 07/29/20 07/29/20 Range/Units 06:12 06:12 06:12 WBC 4.06 L (4.8-10.8) K/uL RBC 4.42 L (4.7-6.1) M/uL Hgb 14.2 (14.0-18.0) g/dL Hct 39.9 L (42-52) % MCV 90.3 (80-100) fL MCH 32.1 (25-34) pg MCHC 35.6 (32-36) g/dL RDW Std Deviation 42.7 (36.4-46.3) fL RDW Coeff of Kang 13.0 (11.5-14.5) % Plt Count 144 (130-400) K/uL MPV 11.2 H (7.4-10.4) fL Immature Gran % (Auto) 0.2 % Neut % (Auto) 82.8 % Lymph % (Auto) 9.9 % [place] % (Auto) 7.1 % Eos % (Auto) 0.0 % Baso % (Auto) 0.0 % Neut # (Auto) 3.36 (1.4-6.5) K/uL Lymph # (Auto) 0.40 L (1.2-3.4) K/uL [place] # (Auto) 0.29 (0.11-0.59) K/uL Eos # (Auto) 0.00 (0-0.5) K/uL Baso # (Auto) 0.00 (0-0.2) K/uL Immature Gran # (Auto) 0.01 (0.00-0.02) K/uL ESR 35 H (0-20) mm/hr Fibrinogen (184-400) mg/dl Sodium 139 (136-145) mmol/L Potassium 3.5 (3.5-5.1) mmol/L Chloride 106 (98-107) mmol/L Carbon Dioxide 27 (21-32) mmol/L Anion Gap 7.0 (3-11) BUN 20 H (7-18) mg/dl Creatinine 0.90 (0.6-1.4) mg/dl Est Cr Clr Drug Dosing 76.9 ml/min Est GFR ( Amer) 95.8 Est GFR (Non-Af Amer) 82.7 BUN/Creatinine Ratio 22.1 H (10-20) Glucose 83 (70-99) mg/dl POC Glucose (70-99) mg/dl Calcium 9.0 (8.5-10.1) mg/dl Magnesium 2.1 (1.8-2.4) mg/dl C-Reactive Protein 5.30 H (0-0.29) mg/dl NT-Pro-B Natriuret Pep 431 (0-1800) pg/ml Procalcitonin (0-0.5) ng/ml 07/28/20 07/28/20 Range/Units 20:31 18:22 WBC (4.8-10.8) K/uL RBC (4.7-6.1) M/uL Hgb (14.0-18.0) g/dL Hct (42-52) % MCV (80-100) fL MCH (25-34) pg MCHC (32-36) g/dL RDW Std Deviation (36.4-46.3) fL RDW Coeff of Kang (11.5-14.5) % Plt Count (130-400) K/uL MPV (7.4-10.4) fL Immature Gran % (Auto) % Neut % (Auto) % Lymph % (Auto) % [place] % (Auto) % Eos % (Auto) % Baso % (Auto) % Neut # (Auto) (1.4-6.5) K/uL Lymph # (Auto) (1.2-3.4) K/uL [place] # (Auto) (0.11-0.59) K/uL Eos # (Auto) (0-0.5) K/uL Baso # (Auto) (0-0.2) K/uL Immature Gran # (Auto) (0.00-0.02) K/uL ESR (0-20) mm/hr Fibrinogen 507 H (184-400) mg/dl Sodium (136-145) mmol/L Potassium (3.5-5.1) mmol/L Chloride (98-107) mmol/L Carbon Dioxide (21-32) mmol/L Anion Gap (3-11) BUN (7-18) mg/dl Creatinine (0.6-1.4) mg/dl Est Cr Clr Drug Dosing ml/min Est GFR ( Amer) Est GFR (Non-Af Amer) BUN/Creatinine Ratio (10-20) Glucose (70-99) mg/dl POC Glucose 143 H (70-99) mg/dl Calcium (8.5-10.1) mg/dl Magnesium (1.8-2.4) mg/dl C-Reactive Protein (0-0.29) mg/dl NT-Pro-B Natriuret Pep (0-1800) pg/ml Procalcitonin (0-0.5) ng/ml PG Care Time/CCT Total # of Minutes Spent Total Time Spent with Patient: Total time spent is greater than 50% in coordination of care (as documented) at patient's floor/unit and/or counseling patient: Coding Level of Care Code 44867 Subseq Hosp Care Lvl 3 Diagnoses COVID-19 U07.1 Hypoxia R09.02 Acute right flank pain R10.9 HTN (hypertension) I10 Hypertension type: essential hypertension Hemoptysis R04.2 Chronic respiratory failure with hypoxia J96.11 S/P AAA (abdominal aortic aneurysm) repair Z98.890; Z86.79 DVT prophylaxis Z29.9 (1) HTN (hypertension) Hypertension type: essential hypertension Qualified Code(s): I10 - Essential (primary) hypertension
[2020-07-29] MEDS: REMDESIVIR 100 MG in SODIUM CHLORIDE 0.9% 230 ML IV SCH (19:52)
[2020-07-29] MEDS: amLODIPine BESYLATE 5 MG TAB PO SCH (19:53)
[2020-07-29] MEDS: SODIUM CHLORIDE 0.9% 10ML FLUSH IV SCH (21:07)
[2020-07-30] MEDS: ALBUTEROL HFA 8 GM INHALER INH SCH ×2 (03:36→07:34)
[2020-07-30 07:55] LABS: Basophils # (auto) 0.02 K/uL (0-0.2); Basophils % (auto) 0.6 %; Hemoglobin 13.7 g/dL (14.0-18.0); Immature Granulocytes # (auto) 0.01 K/uL (0.00-0.02); Immature Granulocytes % (auto) 0.3 %; Lymphocytes # (auto) 0.48 K/uL (1.2-3.4); Lymphocytes % (auto) 14.6 %; Mean Corpuscular Hemoglobin 32.3 pg (25-34); Mean Corpuscular Hgb Conc 36.1 g/dL (32-36); Mean Corpuscular Volume 89.6 fL (80-100); Mean Platelet Volume 11.2 fL (7.4-10.4); Monocytes # (auto) 0.36 K/uL (0.11-0.59); Monocytes % (auto) 10.9 %; Neutrophils # (auto) 2.42 K/uL (1.4-6.5); Neutrophils % (auto) 73.6 %; Platelet Count 181 K/uL (130-400); RDW Standard Deviation 42.2 fL (36.4-46.3); Red Blood Count 4.24 M/uL (4.7-6.1); White Blood Count 3.29 K/uL (4.8-10.8)
[2020-07-30 08:24] LABS: BUN Creatinine Ratio 26.7 (10-20); C Reactive Protein 6.02 mg/dl (0-0.29); Est GFR (African American) 98.1; Est GFR (Non-African American) 84.6; Magnesium 2.3 mg/dl (1.8-2.4); Potassium 3.5 mmol/L (3.5-5.1)
[2020-07-30] MEDS: ASPIRIN 81 MG ECTAB PO SCH (08:25)
[2020-07-30] MEDS: dexAMETHasone 6 MG in SYRINGE 0 ML IV SCH (08:25)
[2020-07-30] MEDS: ENOXAPARIN INJ 60 MG/0.6 ML SYR SQ SCH ×2 (08:26→19:59)
[2020-07-30] MEDS: AZITHROMYCIN 250 MG TAB PO SCH (08:26)
[2020-07-30] MEDS ORDERED: ALBUTEROL HFA 8 GM INHALER INH PRN (09:33)
--- NOTE | 2020-07-30 12:52 | Hospitalist Progress Note ---
Date of Service July 30, 2020 Assessment & Plan (1) COVID-19: COVID 19 pneumonia with worsening dyspnea and increased oxygen use. Chest x-ray with bilateral infiltrates consistent with viral pneumonia - Continue Decadron 6 mg IV once daily x 10 days, day 3 - Continue oxygen-on high flow nasal cannula at 30 L, 55% FiO2 -Continue remdesivir- will need to follow LFT's, patient has had elevated LFT in the past. First day of treatment was 07/28, day 3 today -Continue azithromycin for bacterial coverage, PCT negative - Lovenox 0.5mg/kg q12 for VTE prophylaxis encourage him to lay prone or on his side if he can he is compliant with flutter valve and incentive spirometer CRP is only 6, no role for Tocilizumab at this time repeat CRP if he gets worse but right now he is improving will give a Lasix 20mg IV challenge to see if he can diurese, keep lungs dry (2) Hypoxia: As above - Continue oxygen therapy - Goal pulse ox 92% currently he is a little better on 30L and 55% FiO2, continue to wean as tolerated (3) Acute right flank pain: Pain with coughing, pain with palpation between intercostals - Tylenol as needed -Add guaifenesin DM as needed for cough (4) HTN (hypertension): Blood pressures mildly elevated Continue amlodipine Aspirin 81 mg p.o. once daily added on admission for primary prevention but also may be beneficial for Covid-19 (5) Hemoptysis: Reported scant hemoptysis upon admission, continue to monitor Follow CBC, Hb stable likely from ongoing coughing (6) Chronic respiratory failure with hypoxia: Typically is on 2 L nasal cannula at bedtime at home (7) S/P AAA (abdominal aortic aneurysm) repair: No acute needs - Control BP, continue aspirin Should be on a statin-defer to PCP (8) DVT prophylaxis: SCD', Lovenox 0.5mg/kg q12 Disposition-continued stay on telemetry on Covid serrano Admission and Anticipated Discharge Date Admission Date: July 28, 2020 Subjective patient sitting up in a chair, says he is feeling "great, a lot better since I've been here" breathing comfortably, he is on 30L and 55% FiO2, no distress at all he says he has a productive cough, occasional blood streaks but no bret hemoptysis no fever or chills, no diarrhea reviewed chart, reviewed labs, CRP is 6 discussed trying a dose of lasix 20mg IV, he agrees, understands he might make a lot more urine explained to him that he will be here the rest of the week, needs to get down to at least low flow oxygen to go home Review of Systems Review of Systems: All systems reviewed & are unremarkable except as noted in Subjective Constitutional: + weakness Respiratory: + cough, + dyspnea and + dyspnea on exertion Cardiovascular: no chest pain Gastrointestinal: no abdominal pain, no nausea, no vomiting, no constipation and no diarrhea/loose stools Physical Exam Constitutional: well developed, well nourished and + ill appearing; no acute distress and not frail appearing Neck: trachea midline, no thyromegaly Respiratory: normal respiratory effort, lungs clear to auscultation + cough; no labored breathing Cardiovascular: RRR, no murmur, no edema Gastrointestinal (Abdomen): normal bowel sounds, soft, nontender, no hepatosplenomegaly Musculoskeletal: no cyanosis or clubbing, extremities motor strength 5/5 Skin: no rashes, warm and dry Neurologic: patellar DTR's 2+ bilat, sensation intact and PERRL, EOMI, accommodation nl, no face palsy, no dysarthria Psychiatric: A+Ox3, euthymic affect Lymphatic: no cervical or axillary lymphadenopathy Results & Data Results & Data ([facility]) Vital Signs (Past 12 Hours) Vital Signs Temp Pulse Pulse Resp BP BP Pulse Ox 07/30/20 11:00 36.6 C 84 19 142/89 H 95 07/30/20 10:55 60 07/30/20 10:49 85 20 93 07/30/20 07:34 76 20 96 07/30/20 07:10 36.5 C 79 21 150/84 H 89 L 07/30/20 04:31 36.8 C 66 19 148/81 H 88 L 07/30/20 03:36 66 18 91 Laboratory Results Laboratory Results - last 24 hr 07/30/20 07/30/20 06:48 06:48 WBC 3.29 L RBC 4.24 L Hgb 13.7 L Hct 38.0 L MCV 89.6 MCH 32.3 MCHC 36.1 H RDW Std Deviation 42.2 RDW Coeff of Kang 13.0 Plt Count 181 MPV 11.2 H Immature Gran % (Auto) 0.3 Neut % (Auto) 73.6 Lymph % (Auto) 14.6 [place] % (Auto) 10.9 Eos % (Auto) 0.0 Baso % (Auto) 0.6 Neut # (Auto) 2.42 Lymph # (Auto) 0.48 L [place] # (Auto) 0.36 Eos # (Auto) 0.00 Baso # (Auto) 0.02 Immature Gran # (Auto) 0.01 Sodium 139 Potassium 3.5 Chloride 106 Carbon Dioxide 26 Anion Gap 7.0 BUN 23 H Creatinine 0.85 Est Cr Clr Drug Dosing 81.0 Est GFR ( Amer) 98.1 Est GFR (Non-Af Amer) 84.6 BUN/Creatinine Ratio 26.7 H Glucose 82 Calcium 9.0 Magnesium 2.3 AST 52 H ALT 61 C-Reactive Protein 6.02 H Medications Administered Current Inpatient Medications Acetaminophen (Acetaminophen 325 Mg Tab) 650 mg PO Q4H PRN PRN Reason: Pain or Fever Stop: 08/27/20 17:30 Albuterol (Albuterol Hfa 8 Gm Inhaler) 2 puffs INH Q4R PRN PRN Reason: Shortness Of Breath Or Wheezing Stop: 08/27/20 17:30 Amlodipine Besylate (Amlodipine Besylate 5 Mg Tab) 5 mg PO PM [facility] Stop: 08/27/20 20:59 Last Admin: 07/29/20 19:53 Dose: 5 mg Documented by: Aspirin (Aspirin 81 Mg Ectab) [facility] [place]: 08/28/20 08:59 Last Admin: 07/30/20 08:25 Dose: 81 mg Documented by: Azithromycin (Azithromycin 250 Mg Tab) [facility] [place]: 08/04/20 15:29 Last Admin: 07/30/20 08:26 Dose: 500 mg Documented by: Enoxaparin Sodium (Enoxaparin Inj 60 Mg/0.6 Ml Syr) 50 mg SQ Q12 [facility] Stop: 08/27/20 20:59 Last Admin: 07/30/20 08:26 Dose: 50 mg Documented by: Guaifenesin/Dextromethorphan (Guaifenesin/Dextrom Syrup 200mg/20mg 10ml Udc) 10 ml PO Q6H PRN PRN Reason: Cough Stop: 08/28/20 18:28 Dexamethasone 6 mg/ Syringe 1.5 mls @ 1 mls/min IV DAILY [facility] Stop: 08/08/20 08:59 Last Admin: 07/30/20 08:25 Dose: 1 mls/min Documented by: Remdesivir 100 mg/ Sodium (Chloride) 250 mls @ 250 mls/hr IV DAILY@2000 [facility]; Protocol Stop: 08/01/20 20:59 Last Infusion: 07/29/20 21:06 Dose: Infused Documented by: Ondansetron HCl (Ondansetron Inj 2 Mg/Ml 2 Ml Vial) 4 mg IV Q6H PRN PRN Reason: Nausea Stop: 08/27/20 17:30 Polyethylene Glycol (Polyethylene (Miralax) 17 Gm Pack) 17 gm PO DAILY PRN PRN Reason: Constipation Stop: 08/27/20 17:30 Sodium Chloride (Sodium Chloride 0.9% 10ml Flush) 30 ml IV Q24H [facility] Stop: 08/01/20 21:01 Last Admin: 07/29/20 21:07 Dose: 30 ml Documented by: PG Care Time/CCT Total # of Minutes Spent Total Time Spent with Patient: Total time spent is greater than 50% in coordination of care (as documented) at patient's floor/unit and/or counseling patient: Coding Level of Care Code 87976 Subseq Hosp Care Lvl 3 Diagnoses COVID-19 U07.1 Hypoxia R09.02 Acute right flank pain R10.9 HTN (hypertension) I10 Hypertension type: essential hypertension Hemoptysis R04.2 Chronic respiratory failure with hypoxia J96.11 S/P AAA (abdominal aortic aneurysm) repair Z98.890; Z86.79 DVT prophylaxis Z29.9 (1) HTN (hypertension) Hypertension type: essential hypertension Qualified Code(s): I10 - Essential (primary) hypertension
[2020-07-30] MEDS ORDERED: POTASSIUM CHLORIDE CRTAB 20 MEQ TABCR PO STA (12:57)
[2020-07-30] MEDS ORDERED: FUROSEMIDE 20 MG in SYRINGE 0 ML IV ONE (13:15)
[2020-07-30] MEDS: REMDESIVIR 100 MG in SODIUM CHLORIDE 0.9% 230 ML IV SCH (19:58)
[2020-07-30] MEDS: amLODIPine BESYLATE 5 MG TAB PO SCH (19:59)
[2020-07-30] MEDS: SODIUM CHLORIDE 0.9% 10ML FLUSH IV SCH (21:43)
[2020-07-31 06:39] LABS: Basophils # (auto) 0.01 K/uL (0-0.2); Basophils % (auto) 0.2 %; Hemoglobin 14.6 g/dL (14.0-18.0); Immature Granulocytes # (auto) 0.02 K/uL (0.00-0.02); Immature Granulocytes % (auto) 0.3 %; Lymphocytes # (auto) 0.66 K/uL (1.2-3.4); Lymphocytes % (auto) 11.3 %; Mean Corpuscular Hemoglobin 32.7 pg (25-34); Mean Corpuscular Hgb Conc 36.5 g/dL (32-36); Mean Corpuscular Volume 89.7 fL (80-100); Mean Platelet Volume 11.2 fL (7.4-10.4); Monocytes # (auto) 0.41 K/uL (0.11-0.59); Neutrophils # (auto) 4.73 K/uL (1.4-6.5); Neutrophils % (auto) 81.2 %; Platelet Count 253 K/uL (130-400); RDW Coefficient of Variation 12.8 % (11.5-14.5); RDW Standard Deviation 41.9 fL (36.4-46.3); Red Blood Count 4.46 M/uL (4.7-6.1); White Blood Count 5.83 K/uL (4.8-10.8)
[2020-07-31 07:21] LABS: BUN Creatinine Ratio 27.2 (10-20); Calcium 8.5 mg/dl (8.5-10.1); Creatinine Clr Calc Pharmacy 72.1 ml/min; Est GFR (African American) 89.8; Est GFR (Non-African American) 77.4; Magnesium 2.4 mg/dl (1.8-2.4); Potassium 3.6 mmol/L (3.5-5.1)
[2020-07-31] MEDS: dexAMETHasone 6 MG in SYRINGE 0 ML IV SCH (08:38)
[2020-07-31] MEDS: ASPIRIN 81 MG ECTAB PO SCH (08:39)
[2020-07-31] MEDS: ENOXAPARIN INJ 60 MG/0.6 ML SYR SQ SCH ×2 (08:39→19:25)
[2020-07-31] MEDS: AZITHROMYCIN 250 MG TAB PO SCH (08:39)
--- NOTE | 2020-07-31 10:42 | Hospitalist Progress Note ---
Date of Service July 31, 2020 Assessment & Plan (1) COVID-19: COVID 19 pneumonia with worsening dyspnea and increased oxygen use. Chest x-ray with bilateral infiltrates consistent with viral pneumonia - Continue Decadron 6 mg IV once daily x 10 days, day 4 - was on Vapotherm, now down to 8L wall high flow, improving -Continue remdesivir- LFT stable First day of treatment was 5/8, day 4 today -Continue azithromycin for bacterial coverage, PCT negative - Lovenox 0.5mg/kg q12 for VTE prophylaxis encourage him to lay prone or on his side if he can he is compliant with flutter valve and incentive spirometer CRP is only 3, no role for Tocilizumab at this time repeat CRP if he gets worse but right now he is improving not a great response to Lasix 20mg IV yesterday, he is making urine without it, hold on repeat dose (2) Hypoxia: As above - Continue oxygen therapy - Goal pulse ox 92% currently he is a lot better, down to 8L wall high flow, titrate as tolerated (3) Acute right flank pain: Pain with coughing, pain with palpation between intercostals - Tylenol as needed -Add guaifenesin DM as needed for cough (4) HTN (hypertension): Blood pressures mildly elevated Continue amlodipine Aspirin 81 mg p.o. once daily added on admission for primary prevention but also may be beneficial for Covid-19 (5) Hemoptysis: Reported scant hemoptysis upon admission, continue to monitor Follow CBC, Hb stable likely from ongoing coughing (6) Chronic respiratory failure with hypoxia: Typically is on 2 L nasal cannula at bedtime at home (7) S/P AAA (abdominal aortic aneurysm) repair: No acute needs - Control BP, continue aspirin Should be on a statin-defer to PCP (8) DVT prophylaxis: SCD', Lovenox 0.5mg/kg q12 Disposition- can down grade to medical status Admission and Anticipated Discharge Date Admission Date: July 28, 2020 Subjective patient doing better today, down to 8L wall high flow, laying prone a lot, very compliant eating well, had a BM yesterday, making a lot of urine reviewed labs, WBC normal, CRP down to 3, Cr is 0.9, K normal he is pleased, wants to know how long he will be here, discussed that it will be a few more days, likely the rest of the week into the weekend encouraged him to keep doing what he is doing Review of Systems Review of Systems: All systems reviewed & are unremarkable except as noted in Subjective Physical Exam Constitutional: well developed and well nourished; no acute distress and not frail appearing Neck: trachea midline, no thyromegaly Respiratory: normal respiratory effort, lungs clear to auscultation + cough; no labored breathing Cardiovascular: RRR, no murmur, no edema Gastrointestinal (Abdomen): normal bowel sounds, soft, nontender, no hepatosplenomegaly Musculoskeletal: no cyanosis or clubbing, extremities motor strength 5/5 Skin: no rashes, warm and dry Neurologic: patellar DTR's 2+ bilat, sensation intact and PERRL, EOMI, accommodation nl, no face palsy, no dysarthria Psychiatric: A+Ox3, euthymic affect Lymphatic: no cervical or axillary lymphadenopathy Results & Data Results & Data ([facility]) Vital Signs (Past 12 Hours) Vital Signs Temp Pulse Pulse Pulse Resp BP BP 07/31/20 10:00 98 H 07/31/20 08:00 80 07/31/20 07:34 36.5 C 88 22 126/84 07/31/20 07:21 102 H 16 07/31/20 03:09 83 20 07/31/20 03:00 36.5 C 81 18 160/96 H 07/30/20 23:15 78 20 07/30/20 22:47 36.3 C L 67 17 132/71 Pulse Ox 07/31/20 10:00 93 07/31/20 08:00 07/31/20 07:34 88 L 07/31/20 07:21 98 07/31/20 03:09 90 07/31/20 03:00 90 07/30/20 23:15 90 07/30/20 22:47 95 Laboratory Results Laboratory Results - last 24 hr 07/31/20 07/31/20 07/31/20 05:31 05:31 05:31 WBC 5.83 RBC 4.46 L Hgb 14.6 Hct 40.0 L MCV 89.7 MCH 32.7 MCHC 36.5 H RDW Std Deviation 41.9 RDW Coeff of Kang 12.8 Plt Count 253 MPV 11.2 H Immature Gran % (Auto) 0.3 Neut % (Auto) 81.2 Lymph % (Auto) 11.3 [place] % (Auto) 7.0 Eos % (Auto) 0.0 Baso % (Auto) 0.2 Neut # (Auto) 4.73 Lymph # (Auto) 0.66 L [place]hea # (Auto) 0.41 Eos # (Auto) 0.00 Baso # (Auto) 0.01 Immature Gran # (Auto) 0.02 Sodium 140 Potassium 3.6 Chloride 107 Carbon Dioxide 27 Anion Gap 6.0 BUN 26 H Creatinine 0.95 Est Cr Clr Drug Dosing 72.1 Est GFR ( Amer) 89.8 Est GFR (Non-Af Amer) 77.4 BUN/Creatinine Ratio 27.2 H Glucose 86 Calcium 8.5 Magnesium 2.4 AST 55 H ALT 85 H C-Reactive Protein 3.30 H Medications Administered Current Inpatient Medications Acetaminophen (Acetaminophen 325 Mg Tab) 650 mg PO Q4H PRN PRN Reason: Pain or Fever Stop: 08/27/20 17:30 Albuterol (Albuterol Hfa 8 Gm Inhaler) 2 puffs INH Q4R PRN PRN Reason: Shortness Of Breath Or Wheezing Stop: 08/27/20 17:30 Amlodipine Besylate (Amlodipine Besylate 5 Mg Tab) 5 mg PO PM [facility] Stop: 08/27/20 20:59 Last Admin: 07/30/20 19:59 Dose: 5 mg Documented by: Aspirin (Aspirin 81 Mg Ectab) [facility] [place]: 08/28/20 08:59 Last Admin: 07/31/20 08:39 Dose: 81 mg Documented by: Azithromycin (Azithromycin 250 Mg Tab) [facility] [place]: 08/04/20 15:29 Last Admin: 07/31/20 08:39 Dose: 500 mg Documented by: Enoxaparin Sodium (Enoxaparin Inj 60 Mg/0.6 Ml Syr) 50 mg SQ Q12 [facility] Stop: 08/27/20 20:59 Last Admin: 07/31/20 08:39 Dose: 50 mg Documented by: Guaifenesin/Dextromethorphan (Guaifenesin/Dextrom Syrup 200mg/20mg 10ml Udc) 10 ml PO Q6H PRN PRN Reason: Cough Stop: 08/28/20 18:28 Dexamethasone 6 mg/ Syringe 1.5 mls @ 1 mls/min IV DAILY [facility] Stop: 08/08/20 08:59 Last Admin: 07/31/20 08:38 Dose: 1 mls/min Documented by: Remdesivir 100 mg/ Sodium (Chloride) 250 mls @ 250 mls/hr IV DAILY@1999 [facility]; Protocol Stop: 08/01/20 20:59 Last Infusion: 07/30/20 21:44 Dose: Infused Documented by: Ondansetron HCl (Ondansetron Inj 2 Mg/Ml 2 Ml Vial) 4 mg IV Q6H PRN PRN Reason: Nausea Stop: 08/27/20 17:30 Polyethylene Glycol (Polyethylene (Miralax) 17 Gm Pack) 17 gm PO DAILY PRN PRN Reason: Constipation Stop: 08/27/20 17:30 Sodium Chloride (Sodium Chloride 0.9% 10ml Flush) 30 ml IV Q24H [facility] Stop: 08/01/20 21:01 Last Admin: 07/30/20 21:43 Dose: 30 ml Documented by: PG Care Time/CCT Total # of Minutes Spent Total Time Spent with Patient: Total time spent is greater than 50% in coordination of care (as documented) at patient's floor/unit and/or counseling patient: Coding Level of Care Code 05953 Subseq Hosp Care Lvl 2 Diagnoses COVID-19 U07.1 Hypoxia R09.02 Acute right flank pain R10.9 HTN (hypertension) I10 Hypertension type: essential hypertension Hemoptysis R04.2 Chronic respiratory failure with hypoxia J96.11 S/P AAA (abdominal aortic aneurysm) repair Z98.890; Z86.79 DVT prophylaxis Z29.9 (1) HTN (hypertension) Hypertension type: essential hypertension Qualified Code(s): I10 - Essential (primary) hypertension
[2020-07-31] MEDS: REMDESIVIR 100 MG in SODIUM CHLORIDE 0.9% 230 ML IV SCH (19:20)
[2020-07-31] MEDS: amLODIPine BESYLATE 5 MG TAB PO SCH (19:23)
[2020-07-31] MEDS: SODIUM CHLORIDE 0.9% 10ML FLUSH IV SCH (20:56)
[2020-08-01 07:54] LABS: Creatinine Clr Calc Pharmacy 70.5 ml/min; Est GFR (African American) 87.5; Est GFR (Non-African American) 75.5
[2020-08-01] MEDS: ASPIRIN 81 MG ECTAB PO SCH (08:43)
[2020-08-01] MEDS: ENOXAPARIN INJ 60 MG/0.6 ML SYR SQ SCH ×2 (08:43→19:38)
[2020-08-01] MEDS: AZITHROMYCIN 250 MG TAB PO SCH (08:43)
[2020-08-01] MEDS: dexAMETHasone 6 MG in SYRINGE 0 ML IV SCH (08:45)
--- NOTE | 2020-08-01 10:31 | Hospitalist Progress Note ---
Date of Service August 01, 2020 Assessment & Plan (1) COVID-19: COVID 19 pneumonia with worsening dyspnea and increased oxygen use. Chest x-ray with bilateral infiltrates consistent with viral pneumonia - Continue Decadron 6 mg IV once daily x 10 days, day 5 - stable on 7L wall high flow, improving each day, wants to walk in halls today -Continue remdesivir- LFT stable First day of treatment was 07/28, day 5 today -Complete Zithromax today, day 5 - Lovenox 0.5mg/kg q12 for VTE prophylaxis encourage him to lay prone, he is compliant he is compliant with flutter valve and incentive spirometer CRP is only 3 yesterday, no role for Tocilizumab at this time repeat CRP if he gets worse but right now he is improving not a great response to Lasix 20mg IV on 07/30, he is making urine without it, hold on repeat dose (2) Hypoxia: As above - Continue oxygen therapy - Goal pulse ox 92% currently he is a lot better, down to 7L wall high flow, titrate as tolerated okay to ambulate in hallway with oxygen (3) Acute right flank pain: Pain with coughing, pain with palpation between intercostals - Tylenol as needed -Add guaifenesin DM as needed for cough (4) HTN (hypertension): Blood pressures stable today Continue amlodipine Aspirin 81 mg p.o. once daily added on admission for primary prevention but also may be beneficial for Covid-19 (5) Hemoptysis: Reported scant hemoptysis upon admission, continue to monitor no further episodes likely from ongoing coughing (6) Chronic respiratory failure with hypoxia: Typically is on 2 L nasal cannula at bedtime at home (7) S/P AAA (abdominal aortic aneurysm) repair: No acute needs - Control BP, continue aspirin Should be on a statin-defer to PCP (8) DVT prophylaxis: SCD', Lovenox 0.5mg/kg q12 Disposition- can down grade to medical status, can ambulate in hallway, no need for PT as he is independent likely here until the weekend, can go home once he is down to 3-4L NC Admission and Anticipated Discharge Date Admission Date: July 28, 2020 Subjective patient is feeling much better today, sitting up in chair, sats 94% on 7L wall high flow, no distress at all eating well, sleeping well, making urine, no BM yet today he wants to try to walk in the hallway with oxygen, very motivated to get stronger, would like to go see his in [address], will make that happen later today no fever/chills, no chest pain, + cough, no nausea/vomiting, diarrhea AST and ALT stable, Cr stable Review of Systems Review of Systems: All systems reviewed & are unremarkable except as noted in Subjective Physical Exam Constitutional: well developed and well nourished; no acute distress and not frail appearing Neck: trachea midline, no thyromegaly Respiratory: normal respiratory effort, lungs clear to auscultation + cough; no labored breathing Cardiovascular: RRR, no murmur, no edema Gastrointestinal (Abdomen): normal bowel sounds, soft, nontender, no hepatosplenomegaly Musculoskeletal: no cyanosis or clubbing, extremities motor strength 5/5 Skin: no rashes, warm and dry Neurologic: patellar DTR's 2+ bilat, sensation intact and PERRL, EOMI, accommodation nl, no face palsy, no dysarthria Psychiatric: A+Ox3, euthymic affect Lymphatic: no cervical or axillary lymphadenopathy Results & Data Results & Data ([facility]) Vital Signs (Past 12 Hours) Vital Signs Temp Pulse Resp BP BP Pulse Ox 08/01/20 07:27 36.5 C 84 19 122/80 90 08/01/20 04:08 36.6 C 72 20 136/81 90 Laboratory Results Laboratory Results - last 24 hr 08/01/20 06:12 Creatinine 0.97 Est Cr Clr Drug Dosing 70.5 Est GFR ( Amer) 87.5 Est GFR (Non-Af Amer) 75.5 AST 52 H ALT 108 H Medications Administered Current Inpatient Medications Acetaminophen (Acetaminophen 325 Mg Tab) 650 mg PO Q4H PRN PRN Reason: Pain or Fever Stop: 08/27/20 17:30 Albuterol (Albuterol Hfa 8 Gm Inhaler) 2 puffs INH Q4R PRN PRN Reason: Shortness Of Breath Or Wheezing Stop: 08/27/20 17:30 Amlodipine Besylate (Amlodipine Besylate 5 Mg Tab) 5 mg PO PM ANA Stop: 08/27/20 20:59 Last Admin: 07/31/20 19:23 Dose: 5 mg Documented by: Aspirin (Aspirin 81 Mg Ectab) 81 mg PO QAM [facility] Stop: 08/28/20 08:59 Last Admin: 08/01/20 08:43 Dose: 81 mg Documented by: Azithromycin (Azithromycin 250 Mg Tab) 500 mg PO QAM [facility] Stop: 08/04/20 15:29 Last Admin: 08/01/20 08:43 Dose: 500 mg Documented by: Enoxaparin Sodium (Enoxaparin Inj 60 Mg/0.6 Ml Syr) 50 mg SQ Q12 [facility] Stop: 08/27/20 20:59 Last Admin: 08/01/20 08:43 Dose: 50 mg Documented by: Guaifenesin/Dextromethorphan (Guaifenesin/Dextrom Syrup 200mg/20mg 10ml Udc) 10 ml PO Q6H PRN PRN Reason: Cough Stop: 08/28/20 18:28 Dexamethasone 6 mg/ Syringe 1.5 mls @ 1 mls/min IV DAILY [facility] Stop: 08/08/20 08:59 Last Admin: 08/01/20 08:45 Dose: 1 mls/min Documented by: Remdesivir 100 mg/ Sodium (Chloride) 250 mls @ 250 mls/hr IV DAILY@1999 [facility]; Protocol Stop: 08/01/20 20:59 Last Infusion: 07/31/20 20:56 Dose: Infused Documented by: Ondansetron HCl (Ondansetron Inj 2 Mg/Ml 2 Ml Vial) 4 mg IV Q6H PRN PRN Reason: Nausea Stop: 08/27/20 17:30 Polyethylene Glycol (Polyethylene (Miralax) 17 Gm Pack) 17 gm PO DAILY PRN PRN Reason: Constipation Stop: 08/27/20 17:30 Sodium Chloride (Sodium Chloride 0.9% 10ml Flush) 30 ml IV Q24H [facility] Stop: 08/01/20 21:01 Last Admin: 07/31/20 20:56 Dose: 30 ml Documented by: PG Care Time/CCT Total # of Minutes Spent Total Time Spent with Patient: Total time spent is greater than 50% in coordin ation of care (as documented) at patient's floor/unit and/or counseling patient: Coding Level of Care Code 75626 Subseq Hosp Care Lvl 3 Diagnoses COVID-19 U07.1 Hypoxia R09.02 Acute right flank pain R10.9 HTN (hypertension) I10 Hypertension type: essential hypertension Hemoptysis R04.2 Chronic respiratory failure with hypoxia J96.11 S/P AAA (abdominal aortic aneurysm) repair Z98.890; Z86.79 DVT prophylaxis Z29.9 (1) HTN (hypertension) Hypertension type: essential hypertension Qualified Code(s): I10 - Essential (primary) hypertension
[2020-08-01] MEDS: REMDESIVIR 100 MG in SODIUM CHLORIDE 0.9% 230 ML IV SCH (19:37)
[2020-08-01] MEDS: amLODIPine BESYLATE 5 MG TAB PO SCH (19:38)
[2020-08-01] MEDS: SODIUM CHLORIDE 0.9% 10ML FLUSH IV SCH (21:02)
[2020-08-02 06:59] LABS: Creatinine Clr Calc Pharmacy 67.7 ml/min; Est GFR (African American) 83.4 ml/min; Est GFR (Non-African American) 71.9 ml/min
--- NOTE | 2020-08-02 07:35 | Hospitalist Progress Note ---
Date of Service August 02, 2020 Assessment & Plan (1) COVID-19: COVID 19 pneumonia with worsening dyspnea and increased oxygen use. Chest x-ray with bilateral infiltrates consistent with viral pneumonia - Continue Decadron 6 mg IV once daily x 10 days, day 6 - stable on 3L wall high flow, improving each day, will ambulate in hallway again today -completed 5 days of Remdesivir on 08/01 -Complete Zithromax on 08/01 - Lovenox 0.5mg/kg q12 for VTE prophylaxis he is compliant with flutter valve and incentive spirometer CRP went down, never needed Tocilizumab will plan for two step tomorrow morning and plan to discharge in the afternoon with home oxygen (2) Hypoxia: As above - Continue oxygen therapy - Goal pulse ox 92% currently he is a lot better, down to 3-4L wall high flow, titrate as tolerated okay to ambulate in hallway with oxygen will get two step in the morning tomorrow (3) Acute right flank pain: Pain with coughing, pain with palpation between intercostals - Tylenol as needed -Add guaifenesin DM as needed for cough (4) HTN (hypertension): Blood pressures stable today Continue amlodipine Aspirin 81 mg p.o. once daily added on admission for primary prevention but also may be beneficial for Covid-19 (5) Hemoptysis: Reported scant hemoptysis upon admission, continue to monitor no further episodes likely from ongoing coughing (6) Chronic respiratory failure with hypoxia: Typically is on 2 L nasal cannula at bedtime at home (7) S/P AAA (abdominal aortic aneurysm) repair: No acute needs - Control BP, continue aspirin Should be on a statin-defer to PCP (8) DVT prophylaxis: SCD', Lovenox 0.5mg/kg q12 Disposition- plan to d/c home tomorrow Admission and Anticipated Discharge Date Admission Date: July 28, 2020 Subjective patient doing great, was on 5L wall high flow, 97%, sitting up turned him down to 3L while I was in the room, saturations stayed around 94-95% no distress, minimal cough, no fever, no chest pain, eating well, making urine, moving his bowels Cr is stable discussed plans to be discharged tomorrow, will get a two step in the morning, he agrees with the plan, very anxious to get home he was able to visit his in [address] yesterday, plans to visit again today I explained that she is still on Vapotherm but otherwise she is eating well, vitals stable, going to be here into next week Review of Systems Review of Systems: All systems reviewed & are unremarkable except as noted in Subjective Physical Exam Constitutional: well developed and well nourished; no acute distress and not frail appearing Neck: trachea midline, no thyromegaly Respiratory: normal respiratory effort, lungs clear to auscultation no labored breathing Cardiovascular: RRR, no murmur, no edema Gastrointestinal (Abdomen): normal bowel sounds, soft, nontender, no hepatosplenomegaly Musculoskeletal: no cyanosis or clubbing, extremities motor strength 5/5 Skin: no rashes, warm and dry Neurologic: patellar DTR's 2+ bilat, sensation intact and PERRL, EOMI, accommodation nl, no face palsy, no dysarthria Psychiatric: A+Ox3, euthymic affect Lymphatic: no cervical or axillary lymphadenopathy Results & Data Results & Data ([facility]) Vital Signs (Past 12 Hours) Vital Signs Temp Pulse Resp BP Pulse Ox 08/02/20 07:25 36.6 C 66 20 123/64 90 Laboratory Results Laboratory Results - last 24 hr 08/01/20 08/02/20 06:12 05:46 Creatinine 0.97 1.01 Est Cr Clr Drug Dosing 70.5 67.7 Est GFR ( Amer) 87.5 83.4 Est GFR (Non-Af Amer) 75.5 71.9 AST 52 H 35 ALT 108 H 93 H Medications Administered Current Inpatient Medications Acetaminophen (Acetaminophen 325 Mg Tab) 650 mg PO Q4H PRN PRN Reason: Pain or Fever Stop: 08/27/20 17:30 Albuterol (Albuterol Hfa 8 Gm Inhaler) 2 puffs INH Q4R PRN PRN Reason: Shortness Of Breath Or Wheezing Stop: 08/27/20 17:30 Amlodipine Besylate (Amlodipine Besylate 5 Mg Tab) 5 mg PO PM ANA Stop: 08/27/20 20:59 Last Admin: 08/01/20 19:38 Dose: 5 mg Documented by: Aspirin (Aspirin 81 Mg Ectab) 81 mg PO QAM ANA Stop: 08/28/20 08:59 Last Admin: 08/01/20 08:43 Dose: 81 mg Documented by: Enoxaparin Sodium (Enoxaparin Inj 60 Mg/0.6 Ml Syr) 50 mg SQ Q12 ANA Stop: 08/27/20 20:59 Last Admin: 08/01/20 19:38 Dose: 50 mg Documented by: Guaifenesin/Dextromethorphan (Guaifenesin/Dextrom Syrup 200mg/20mg 10ml Udc) 10 ml PO Q6H PRN PRN Reason: Cough Stop: 08/28/20 18:28 Dexamethasone 6 mg/ Syringe 1.5 mls @ 1 mls/min IV DAILY ANA Stop: 08/08/20 08:59 Last Admin: 08/01/20 08:45 Dose: 1 mls/min Documented by: Ondansetron HCl (Ondansetron Inj 2 Mg/Ml 2 Ml Vial) 4 mg IV Q6H PRN PRN Reason: Nausea Stop: 08/27/20 17:30 Polyethylene Glycol (Polyethylene (Miralax) 17 Gm Pack) 17 gm PO DAILY PRN PRN Reason: Constipation Stop: 08/27/20 17:30 PG Care Time/CCT Total # of Minutes Spent Total Time Spent with Patient: Total time spent is greater than 50% in coordination of care (as documented) at patient's floor/unit and/or counseling patient: Coding Level of Care Code 77951 Subseq Hosp Care Lvl 2 Diagnoses COVID-19 U07.1 Hypoxia R09.02 Acute right flank pain R10.9 HTN (hypertension) I10 Hypertension type: essential hypertension Hemoptysis R04.2 Chronic respiratory failure with hypoxia J96.11 S/P AAA (abdominal aortic aneurysm) repair Z98.890; Z86.79 DVT prophylaxis Z29.9 (1) HTN (hypertension) Hypertension type: essential hypertension Qualified Code(s): I10 - Essential (primary) hypertension
[2020-08-02] MEDS: ASPIRIN 81 MG ECTAB PO SCH (08:11)
[2020-08-02] MEDS: dexAMETHasone 6 MG in SYRINGE 0 ML IV SCH (08:12)
[2020-08-02] MEDS: ENOXAPARIN INJ 60 MG/0.6 ML SYR SQ SCH ×2 (08:12→20:58)
[2020-08-02] MEDS: amLODIPine BESYLATE 5 MG TAB PO SCH (20:57)
[2020-08-03] MEDS: dexAMETHasone 6 MG in SYRINGE 0 ML IV SCH (07:30)
[2020-08-03] MEDS: ASPIRIN 81 MG ECTAB PO SCH (07:30)
[2020-08-03] MEDS: ENOXAPARIN INJ 60 MG/0.6 ML SYR SQ SCH (07:31)
--- NOTE | 2020-08-03 09:09 | Discharge Summary ---
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 Patient has been into the emergency room this week for COVID symptoms and tested positive on Thursday. He is unsure when he started feeling ill, but his was diagnosed last week with COVID. He reports that he has generally been feeling well but has noticed increase in dyspnea. He normally only wears oxygen at night when sleeping, but he has been wearing 2LNC continuously at home with a reported SPO2 88% this morning as well as a hypoxia with ambulation here, he has been having a cough that is also getting worse. He was started on oral dexamethasone on Thursday, with albuterol inhaler, he had a CTA performed earlier in the week that was negative for PE, and CXR done today shows progression of infiltrates. He had an eppisode of feeling like he was going to pass out this morning after a coughing spell as well. Patient will be admitted for continued COVID 19 care, remain on dexamethasone, is a candidate for Remdisivir. His is at home and he has family that is able to help take care of her. Principal Diagnosis COVID 19 pneumonia with acute hypoxic respiratory failure Discharge Exam Constitutional well developed and well nourished; no acute distress and not frail appearing Neck trachea midline, no thyromegaly Respiratory normal respiratory effort, lungs clear to auscultation no labored breathing Cardiovascular RRR, no murmur, no edema Gastrointestinal (Abdomen) normal bowel sounds, soft, nontender, no hepatosplenomegaly Musculoskeletal no cyanosis or clubbing, extremities motor strength 5/5 Skin no rashes, warm and dry Neurologic patellar DTR's 2+ bilat, sensation intact and PERRL, EOMI, accommodation nl, no face palsy, no dysarthria Psychiatric A+Ox3, euthymic affect Lymphatic no cervical or axillary lymphadenopathy Discharge Data Allergies Allergy/AdvReac Type Severity Reaction Status Date / Time latex Allergy Mild Redness of Verified 07/28/20 17:50 Skin Consultations 07/28/20 14:10 ED Decision to Admit Stat Hospital Course (1) COVID-19: COVID 19 pneumonia with worsening dyspnea and increased oxygen use. Chest x-ray with bilateral infiltrates consistent with viral pneumonia - Continue Decadron 6 mg IV once daily x 10 days, day 7 - stable on room air at rest, needs 3L on exertion, will arrange for home oxygen -completed 5 days of Remdesivir on 08/01 -Complete Zithromax on 08/01 - Lovenox 0.5mg/kg q12 for VTE prophylaxis he is compliant with flutter valve and incentive spirometer CRP went down, never needed Tocilizumab will discharge to home, complete 3 more days of dexamethasone, take aspirin 81mg daily x 30 days, use oxygen 3L on exertion, likely won't need oxygen after another week (2) Hypoxia: As above - Continue oxygen therapy - Goal pulse ox 92% currently he is a lot better, down to room air at rest, needs 3L on exertion with two step today okay to ambulate in hallway with oxygen (3) Acute right flank pain: Pain with coughing, pain with palpation between intercostals - Tylenol as needed -Add guaifenesin DM as needed for cough (4) HTN (hypertension): Blood pressures stable Continue amlodipine Aspirin 81 mg p.o. once daily added on admission for primary prevention but also may be beneficial for Covid-19 continue aspirin for at least 30 days post discharge, could probably just take indefinitely (5) Hemoptysis: Reported scant hemoptysis upon admission, continue to monitor no further episodes likely from ongoing coughing (6) Chronic respiratory failure with hypoxia: Typically is on 2 L nasal cannula at bedtime at home (7) S/P AAA (abdominal aortic aneurysm) repair: No acute needs - Control BP, continue aspirin Should be on a statin-defer to PCP (8) DVT prophylaxis: SCD', Lovenox 0.5mg/kg q12 Disposition- plan to d/c home Total Time Total Time Spent Total Time Spent (In Minutes): 32 Total Time Includes: Examination of the Patient, Discharge Planning and Medication Reconciliation Discharge Plan Discharge Items Patient Disposition: Home - Self-Care Reason For Visit: COVID HYPOXIA Discharge Diagnosis: COVID pneumonia Acute hypoxic respiratory failure Condition on Discharge: Good Goals: finish course of dexamethasone stay well nourished, well hydrated, well rested Activity: Resume your previous activity Exercise/Sports: Gradually increase as tolerated Driving/Machine Use: Resume 3 days after discharge Weightbearing: Full weightbearing Non-emergency contact: Primary Care Provider Call non-emergency contact if: you have any medication questions and your symptoms worsen Follow-up/Referrals: Jaden Beebe [Primary Care Provider] - (one week) Diet: Regular Addtl Attending Provider Instructions: Medications: - DEXAMETHASONE: take 6mg daily for three more days, next dose due tomorrow morning - ASPIRIN: take 81mg daily for the next month as this has shown to improve outcomes with COVID, honestly you should probably take a baby aspirin indefinitely, discuss with Dr. Beebe COVID 19 pneumonia, acute hypoxic respiratory failure responded well to Dexamethasone, Pending Studies at Discharge: No Stand-Alone Forms: [facility] [employer] [facility], Smoking Cessation Medications and DC Order Prescriptions: New aspirin 81 mg Tablet,Delayed Release (Dr/Ec) 81 mg PO QAM 30 Days Qty: 30 RF: 0 Continued multivitamin Tablet 1 tab PO QAM RF: 0 dexamethasone [Decadron] 6 mg tablet 6 mg PO DAILY 3 Days Qty: 3 RF: 0 amlodipine [Norvasc] 5 mg tablet 5 mg PO PM RF: 0 albuterol sulfate 90 mcg/actuation HFA aerosol inhaler 3 inh inhalation Q4H Qty: 18 RF: 2 Discontinued aspirin [Denise Aspirin] 325 mg Tablet 325 mg PO DIRECTED PRN (Reason: Fever) RF: 0 Discharge Orders: Discharge Order (Routine); Ordered 08/03/20 Ordered By: Ruperto Jones Admission Data Admit Date/Time: 07/28/20 15:46 Attending Provider: Ruperto Jones Admit Provider: Isreal Vogt Primary Care Provider: Jaden Beebe Other Providers: Isreal Vogt Coding Level of Care Code D/C Day Management >30 mins Diagnoses COVID-19 U07.1 Hypoxia R09.02 Acute right flank pain R10.9 HTN (hypertension) I10 Hypertension type: essential hypertension Hemoptysis R04.2 Chronic respiratory failure with hypoxia J96.11 S/P AAA (abdominal aortic aneurysm) repair Z98.890; Z86.79 DVT prophylaxis Z29.9
--- NOTE | 2020-08-13 10:18 | Coding Query ---
CODING QUERY To promote full compliance with coding requirements relating to patient care, provider participation is requested in all cases of medical biller/coder uncertainty. Please assist us with the question(s) below: Coding Question(s): Chronic Respiratory Failure is documented throughout the chart but discharge summary states Acute Respiratory Failure. Please clarify below: ( x) Chronic Respiratory Failure ( ) Acute Respiratory Failure ( ) Other Please Explain: Thank you Frank Villanueva Principal Diagnosis: "that condition established after study, to be chiefly responsible for occasioning the admission of the patient to the hospital for care." Co-Existing Principal Diagnosis: "when two or more diagnoses equally meet the criteria for principal diagnosis as determined by the circumstances of admission, diagnostic work up, and/or therapy provided, and the Alphabetic Index, Tabular List, or another coding guideline does not provide sequencing direction, any one of the diagnoses may be sequenced first." "When the physician has documented what appears to be a current diagnosis in the body of the record, but has not included the diagnosis in the final diagnostic statement, the physician should be asked whether the diagnosis should be added." (Source Coding Clinic 2 QTR90. p3-4) [facility]
== END 2020-08-03 13:15 | disposition home or self-care (01) | DRG 177 ==
LOC: ED 12:23 → SUATTDRO 15:46 → 2E 15:46